=== PATIENT | female | born 1950 | race Caucasian/White ===

== ENCOUNTER → 2016-05-18 | Outpatient (CLI) | payer BC ==
[~2016-05-18] MED LIST: ACET-1138 PO; ASPCH81X PO; ATOR-24 PO; ATV/1 PO; CETI10CH PO; CHOL2000 PO; CLC100 PO; CYAN10004 PO; DICL-201 PO; DYZ PO; EFFSR150 PO; EFFSR75 PO; LEVO125T5 PO; LOSA1TAB38 PO; OMEP40CA PO; OXYSR10 PO; POTA10CA28 PO; RXC5 PO; TRAZ50TA35 PO; VITBC PO; ZOLP5TAB PO
--- NOTE | 2016-05-18 14:37 | DIAGNOSTIC IMAGING REPORT ---
CHEST 2 VIEWS ROUTINE CLINICAL HISTORY: Acute bronchitis COMPARISON STUDY: 09/03/2015 FINDINGS: The cardiac and mediastinal contours are normal. There is no evidence of focal pulmonary consolidation. There is no evidence of failure. No pleural effusions are visualized.[ There are postsurgical changes involving the left shoulder. There are degenerative changes present within the dorsal spine. IMPRESSION: No active disease in the chest. Electronically signed by: Aries Swain M.D. 05/18/2016 2:35 PM
== END | disposition home or self-care (01) ==
LOC: C.RAD1850 14:23
PROVIDERS: ATTEND Nurse Practitioner Family
DX: J20.9 Acute bronchitis, unspecified (principal)

== ENCOUNTER → 2016-07-07 | Outpatient (CLI) | payer BC ==
[~2016-07-07] MED LIST changes: +LEVO125T4 PO; -LEVO125T5 PO
[2016-07-07 11:49] LABS: BLOOD UREA NITROGEN 25 mg/dl (7-18); BUN/CREATININE RATIO 20.7 (10-20); CALCIUM 8.5 mg/dl (8.5-10.1); CARBON DIOXIDE 33 mmol/L (21-32); CHLORIDE 98 mmol/L (98-107); GLUCOSE 78 mg/dl (70-99); MAGNESIUM 2.1 mg/dl (1.8-2.4); POTASSIUM 3.5 mmol/L (3.5-5.1); SODIUM 138 mmol/L (136-145)
== END | disposition home or self-care (01) ==
LOC: C.LAB1850 10:20
PROVIDERS: ATTEND Family Medicine
DX: R25.2 Cramp and spasm (principal)

== ENCOUNTER → 2016-11-30 | Outpatient (CLI) | payer BC ==
--- NOTE | 2016-11-30 15:17 | DIAGNOSTIC IMAGING REPORT ---
LEFT HAND MIN 3 VIEWS ROUTINE CLINICAL HISTORY: R29.6 Frequent [id number] trauma COMPARISON: None. DISCUSSION: Moderate degenerative change throughout. Involve the interphalangeal joints as well as the intercarpal and carpal metacarpal joints. No evidence for fracture or dislocation. There is no evidence for soft tissue swelling. IMPRESSION: Moderate generalized degenerative change. No acute posttraumatic abnormality The above report was generated using voice recognition software. It may contain grammatical, syntax or spelling errors. Electronically signed by: Lico Damian M.D. 11/30/2016 3:15 PM Dictated Date/Time: 11/30/2016 3:14 PM
--- NOTE | 2016-11-30 15:20 | DIAGNOSTIC IMAGING REPORT ---
LEFT RIBS UNILATERAL WITH PA CHEST CLINICAL HISTORY: Left-sided rib pain. Frequent falls. COMPARISON STUDY: Chest radiograph May 18, 2016. FINDINGS: There is no pneumothorax or pleural effusion. Lungs are clear. No acute left rib fractures are identified. Cardiomediastinal silhouette is normal. Postoperative findings within the left shoulder again noted. IMPRESSION: No pneumothorax. No acute left rib fractures identified. Electronically signed by: Eros Anderson M.D. 11/30/2016 3:18 PM Dictated Date/Time: 11/30/2016 3:16 PM
== END | disposition home or self-care (01) ==
LOC: C.RAD1850 14:50
PROVIDERS: ATTEND Nurse Practitioner Adult Health
DX: R29.6 Repeated falls (principal)

== ENCOUNTER → 2016-12-09 | Outpatient (CLI) | payer BC ==
[2016-12-09 16:09] LABS: BLOOD UREA NITROGEN 21 mg/dl (7-18)
== END ==
LOC: C.LAB 13:42
PROVIDERS: ATTEND Orthopaedic Surgery
DX: M25.511 Pain in right shoulder (principal)

== ENCOUNTER → 2017-04-19 | Outpatient (CLI) | payer BC ==
[~2017-04-19] MED LIST changes: -LEVO125T4 PO; +LEVO125T5 PO
[2017-04-19 10:39] LABS: ESTIMATED AVERAGE GLUCOSE 117 mg/dl; HA1C FLAG Normal (Normal)
[2017-04-19 10:45] LABS: BLOOD UREA NITROGEN 18 mg/dl (7-18); BUN/CREATININE RATIO 15.9 (10-20); CALCIUM 8.8 mg/dl (8.5-10.1); CARBON DIOXIDE 29 mmol/L (21-32); CHLORIDE 102 mmol/L (98-107); CREATININE 1.13 mg/dl (0.60-1.20); GLUCOSE 91 mg/dl (70-99); POTASSIUM 4.2 mmol/L (3.5-5.1); SODIUM 136 mmol/L (136-145)
[2017-04-19 10:55] LABS: ALT/SGPT 17 U/L (12-78); CHOLESTEROL 171 mg/dl (0-200); CHOLESTEROL/HDL RATIO 2.3; HDL CHOLESTEROL 75 mg/dl; LDL CHOLESTEROL CALCULATED 79 mg/dl; TRIGLYCERIDES 87 mg/dl (0-150); VERY LOW DENSITY LIPOPROT CALC 17 mg/dl
== END | disposition home or self-care (01) ==
LOC: C.LAB1850 09:13
PROVIDERS: ATTEND Family Medicine
DX: I10 Essential (primary) hypertension (principal); E03.9 Hypothyroidism, unspecified; E78.5 Hyperlipidemia, unspecified

== ENCOUNTER → 2017-04-29 | Outpatient (CLI) | payer BC ==
[2017-04-29 14:41] LABS: BLOOD UREA NITROGEN 23 mg/dl (7-18); CREATININE 1.31 mg/dl (0.60-1.20)
== END | disposition home or self-care (01) ==
LOC: C.LAB1850 13:04
PROVIDERS: ATTEND Orthopaedic Surgery
DX: M75.102 Unspecified rotator cuff tear or rupture of left shoulder, not specified as traumatic (principal)

== ENCOUNTER → 2017-05-12 | Outpatient (CLI) | payer BC ==
--- NOTE | 2017-05-12 09:40 | DIAGNOSTIC IMAGING REPORT ---
LEFT SHOULDER ARTHROGRAM CLINICAL HISTORY: Left shoulder pain. Previous left shoulder surgery. Evaluate for evidence of rotator cuff tear. COMPARISON STUDY: Left shoulder radiographs September 30, 2015. FLUOROSCOPY TIME: 0.8 minutes. PROCEDURE AND FINDINGS: The procedure, risks and benefits were discussed with the patient and informed written consent was obtained. The procedure was performed by Dr. Anderson following a timeout. Skin overlying the left glenohumeral joint was prepped and draped in sterile fashion and local anesthesia was achieved with 1% lidocaine. Under intermittent fluoroscopic guidance, a 2 inch, 22-gauge needle was directed into the left glenohumeral joint. Positioning within the joint space was confirmed with injection of contrast. A left shoulder resurfacing is noted. Hardware appears intact. There is evidence for a previous distal left clavicular resection. Appearance multiple small filling defects within the joint space could reflect joint bodies. No extension of contrast into the subacromial/subdeltoid bursa was noted. 20 cc of contrast was injected into the left glenohumeral joint with excellent distention. IMPRESSION: 1. Status post left shoulder resurfacing and distal left clavicular resection. Hardware intact. 2. No fluoroscopic evidence of a full-thickness left rotator cuff tear. 3. Multiple apparent small filling defects within the joint space which could reflect small joint bodies. Electronically signed by: Eros Anderson M.D. 05/12/2017 9:39 AM Dictated Date/Time: 05/12/2017 9:36 AM
== END | disposition home or self-care (01) ==
LOC: C.RAD 08:38
PROVIDERS: ATTEND Orthopaedic Surgery
DX: M75.102 Unspecified rotator cuff tear or rupture of left shoulder, not specified as traumatic (principal)

== ENCOUNTER 2017-08-25 10:02 | Inpatient (IN) | payer BC, OTHER ==
[2017-08-02 13:21] VITALS: BMI 43.0
--- NOTE | 2017-08-02 13:54 | PAT Medication Instructions ---
Service Date Aug 02, 2017. Current Home Medication List Acetaminophen (Tylenol Extra Strength), 1,000 MG PO Q8 Aspirin (Aspirin Chewable), 81 MG PO HS Fkxjpny-Vcwfqulzaajsg-Jasjjohl (Excedrin Migraine), 2 TAB PO UD PRN for HEADACHE Atorvastatin (Lipitor), 40 MG PO HS Bupropion (Wellbutrin Sr), 150 MG PO QAM Cetirizine (Zyrtec), 10 MG PO HS Cholecalciferol (Vitamin D3), 1 CAP PO QAM Cyanocobalamin (Vitamin B-12 1000 Mcg), 1,000 MCG PO QAM Levothyroxine Sodium (Levothyroxine Sodium), 1 TAB PO QAM Losartan Potassium (Cozaar), 100 MG PO HS Magnesium Oxide (Mag-Ox), 400 MG PO QAM Omeprazole (Prilosec), 40 MG PO QAM Potassium Chloride (Micro-K Ext Rel), 20 MEQ PO BID Ranitidine (Zantac), 300 MG PO HS Trazodone Hcl (Trazodone), 200 MG PO HS Triamcinolone Acet (Triamcinolone Acetonide), 1 APPLN TOP BID PRN for RASH Triamterene/Hctz (Triamterene/Hctz 37.5-25MG), 1 TAB PO QAM Venlafaxine Hcl (Effexor Extended Rel), 150 MG PO QAM Venlafaxine Hcl (Effexor Extended Rel), 75 MG PO QAM Vitamin B Complex (Vitamin B Complex), 1 TAB PO QAM Zolpidem Tartrate (Ambien), 5 MG PO HS Medication Instructions For Your Scheduled Surgery - Check with surgeon for instructions: Oqodgjn-Zoquiesfqgcfy-Femeamxo (Excedrin Migraine), 2 TAB PO UD PRN for HEADACHE - Hold the following medications 24 hours prior to surgery: Triamcinolone Acet (Triamcinolone Acetonide), 1 APPLN TOP BID PRN for RASH Losartan Potassium (Cozaar), 100 MG PO HS - Hold the following medications the morning of surgery: Vitamin B Complex (Vitamin B Complex), 1 TAB PO QAM Triamterene/Hctz (Triamterene/Hctz 37.5-25MG), 1 TAB PO QAM Potassium Chloride (Micro-K Ext Rel), 20 MEQ PO BID Magnesium Oxide (Mag-Ox), 400 MG PO QAM Cyanocobalamin (Vitamin B-12 1000 Mcg), 1,000 MCG PO QAM Cholecalciferol (Vitamin D3), 1 CAP PO QAM - Take the following medications the morning of surgery with a sip of water: Acetaminophen (Tylenol Extra Strength), 1,000 MG PO Q8 (okay to take up to 4 hours prior to surgery if needed) Bupropion (Wellbutrin Sr), 150 MG PO QAM Levothyroxine Sodium (Levothyroxine Sodium), 1 TAB PO QAM Omeprazole (Prilosec), 40 MG PO QAM Venlafaxine Hcl (Effexor Extended Rel), 150 MG PO QAM Venlafaxine Hcl (Effexor Extended Rel), 75 MG PO QAM - Take the following medications as scheduled the night before surgery: Zolpidem Tartrate (Ambien), 5 MG PO HS Trazodone Hcl (Trazodone), 200 MG PO HS Potassium Chloride (Micro-K Ext Rel), 20 MEQ PO BID Ranitidine (Zantac), 300 MG PO HS Cetirizine (Zyrtec), 10 MG PO HS Atorvastatin (Lipitor), 40 MG PO HS Aspirin (Aspirin Chewable), 81 MG PO HS Acetaminophen (Tylenol Extra Strength), 1,000 MG PO Q8 If you have any questions please call us at [phone] or [phone] or [phone]
--- NOTE | 2017-08-02 14:45 | DIAGNOSTIC IMAGING REPORT ---
CHEST 2 VIEWS ROUTINE CLINICAL HISTORY: PAT preoperative evaluation COMPARISON STUDY: 05/18/2016 FINDINGS: The bones soft tissues and hemidiaphragms are normal. The cardiomediastinal silhouette is normal. The lungs are clear. The pulmonary vasculature is normal. Positional variation of the patient's left shoulder hemiarthroplasty compared to the prior study. IMPRESSION: No acute process of the chest. Variable position of the patient's left shoulder hemiarthroplasty compared to the prior exam. Positional variation of the humerus itself may account for this as well. The above report was generated using voice recognition software. It may contain grammatical, syntax or spelling errors. Electronically signed by: Lico Damian M.D. 08/02/2017 2:44 PM Dictated Date/Time: 08/02/2017 2:42 PM
[2017-08-02 15:32] LABS: BASO % 0.7 %; BASO ABS # 0.08 K/uL (0-0.2); EOS % 2.4 %; EOS ABS # 0.26 K/uL (0-0.5); HEMATOCRIT 40.2 % (37-47); HEMOGLOBIN 13.1 g/dL (12.0-16.0); IG# 0.04 K/uL (0.00-0.02); LYMPH % 16.9 %; LYMPH ABS # 1.82 K/uL (1.2-3.4); MEAN CELL VOLUME 93.3 fL (80-100); MEAN CORPUSCULAR HEMOGLOBIN 30.4 pg (25-34); MEAN CORPUSCULAR HGB CONC 32.6 g/dl (32-36); MEAN PLATELET VOLUME 9.5 fL (7.4-10.4); MONO % 9.6 %; MONO ABS # 1.04 K/uL (0.11-0.59); NEUT ABS # 7.56 K/uL (1.4-6.5); PLATELET COUNT 389 K/uL (130-400); RED CELL DISTRIBUTION WIDTH CV 14.1 % (11.5-14.5); RED CELL DISTRIBUTION WIDTH SD 48.5 fL (36.4-46.3)
[2017-08-02 15:39] LABS: ALBUMIN 3.2 gm/dl (3.4-5.0); CALCIUM 9.1 mg/dl (8.5-10.1); CREATININE 1.14 mg/dl (0.60-1.20); POTASSIUM 4.3 mmol/L (3.5-5.1)
[2017-08-02 15:41] LABS: INR 0.9 (0.9-1.1); PTT PATIENT 27.5 SECONDS (21.0-31.0)
[2017-08-03 06:31] LABS: HEMOGLOBIN A1C 5.6 % (4.5-5.6)
--- NOTE | 2017-08-23 20:03 | HISTORY & PHYSICAL EXAMINATION ---
DATE OF ADMISSION: 08/25/2017 CHIEF COMPLAINT: Chronic left shoulder pain. HISTORY OF PRESENT ILLNESS: This is a 67-year-old female patient of Dr. Willingham complaining of chronic left shoulder pain. The patient had a hemiarthroplasty in 2015. Since then, she has had chronic pain, increasing since 11/2016. She did have 2 falls and has become unstable in that time period. The patient wishes and agrees to proceed with a conversion of the hemiarthroplasty to a reversed total shoulder arthroplasty due to rotator cuff tendinopathy. PAST MEDICAL HISTORY: Hypertension, hypercholesterolemia, sleep apnea, anxiety, hypothyroidism, sciatica, acid reflux, obesity. SOCIAL HISTORY: Nonsmoker, nondrinker. PAST SURGICAL HISTORY: Bilateral knee surgery, multiple left shoulder surgery, hysterectomy, gallbladder and vein ligation. REVIEW OF SYSTEMS: The patient complains of chronic left shoulder pain. Otherwise, denies any shortness of breath, chest pain, nausea, vomiting, or joint complaints. FAMILY HISTORY: Noncontributory. MEDICATIONS: 1. Levothyroxine 150 mcg daily. 2. Losartan 100 mg daily. 3. Effexor 225 mg daily. 4. Hydrochlorothiazide 25 mg daily. 5. Ambien 5 mg daily. 6. Prilosec 40 mg daily. 7. Zyrtec 10 mg daily as needed. 8. Vitamin D daily. 9. Vitamin B daily. 10. Lipitor 10 mg daily. 11. Ranitidine 150 mg daily as needed. 12. Potassium chloride 10 mEq 2 capsules b.i.d. 13. Trazodone 150 mg 2 tablets daily at bed. 14. Lipitor daily. 15. Trazodone 150 mg daily. ALLERGIES: CIPRO. PHYSICAL EXAMINATION: GENERAL: Well-developed, well-nourished 67-year-old female patient of Dr. Willingham. She is alert and oriented x3 and pleasant. HEENT: Normocephalic, atraumatic. Extraocular motions are intact. Pupils are equal and reactive to light. HEART: Regular rate and rhythm, no murmurs appreciated. LUNGS: Clear. ABDOMEN: Soft and nontender. Bowel sounds are present. EXTREMITIES: Left shoulder reveals crepitation and pain with active range of motion and passive range of motion. Actively, she has 140 degrees, passively full range of motion with pain. She has 3+/5 strength. NEUROLOGIC: Neurovascularly, she is intact in her left upper extremity. DIAGNOSES: Left shoulder chronic pain with a history of a hemiarthroplasty. She also has a history of hypertension, hypercholesterolemia, sleep apnea, anxiety, hypothyroidism, sciatica, acid reflux, obesity. PLAN: The patient was advised of her diagnosis. Indications, risks, benefits, postop course have all been reviewed. The patient wished to proceed with a left shoulder conversion of the hemiarthroplasty to a reversed total shoulder arthroplasty. Necessary consent forms, preoperative testing, and clearances will be obtained.
[2017-08-25] VITALS (7 sets, daily range): BP systolic 113–174; BP diastolic 62–88; PULSE 68–82; TEMP 36.6–37.5; O2SAT 90–95; Ht 167.6 cm; Wt 120.4 kg
[~2017-08-25] VITALS: Ht 167.6 cm; Wt 120.4 kg
[~2017-08-25 10:02] MED LIST changes: +ACETAMINOPHEN 500 MG TAB PO SCH; +ASPI-390 PO; -ATV/1 PO; +BUPIVACAINE 0.25% 30 ML VIAL ONE; +BUPR-79 PO; +CEFAZOLIN 3000MG IV PUSH 22.5 ML IV SCH; -CETI10CH PO; +CETI10TA84 PO; -CLC100 PO; +CeleBREX 200 MG CAP PO SCH; +DEXAMETHASONE 4 MG TAB PO SCH; +DEXAMETHASONE SOD INJ 4 MG/ML VIAL ONE; -DICL-201 PO; -DYZ PO; +EpINEphrine INJ 1MG/ML AMP 1 MG/ML AMP ONE; +FAMOTIDINE 20 MG TAB PO SCH; +GABAPENTIN 300 MG CAP PO SCH; +LACTATED RINGER'S 1000ML 1,000 ML IV SCH; +LEVO112T4 PO; -LEVO125T5 PO; +MAGN400T6 PO; +METOCLOPRAMIDE HCL 10 MG TAB PO SCH; -OMEP40CA PO; -OXYSR10 PO; +PRLSR20 PO; +RANI300T2 PO; -RXC5 PO; +TRAZ100T29 PO; -TRAZ50TA35 PO; +TRIATAB3 PO; +TRMCR515 TOP
[2017-08-25] MEDS ORDERED: MIDAZOLAM HCL 1 MG/ML 2ML VIAL ONE (12:56)
[2017-08-25] MEDS ORDERED: FENTANYL CITRATE INJ 50 MCG/1 ML 2 ML VIAL ONE ×4 (12:57→15:20)
--- NOTE | 2017-08-25 13:03 | History & Physical Bridge Note ---
H&P Re-Evaluation Bridge Note: I have examined the patient, reviewed the History & Physical and in the interval since the performance of the History & Physical I have noted the following changes of clinical significance: No changes noted
[2017-08-25] MEDS ORDERED: PROMETHAZINE HCL INJ 6.25 MG in SODIUM CHLORIDE 0.9% 50ML 50 ML IV PRN (13:15)
[2017-08-25] MEDS ORDERED: EpHEDrine SULFATE INJ 50 MG/ML AMP IV PRN (13:15)
[2017-08-25] MEDS ORDERED: HYDROmorphone INJ 1 MG/ML SYR IV PRN (13:15)
[2017-08-25] MEDS ORDERED: FENTANYL CITRATE INJ 50 MCG/1 ML 2 ML VIAL IV PRN (13:15)
[2017-08-25] MEDS ORDERED: ONDANSETRON INJ 2 MG/ML 2 ML VIAL IV PRN ×2 (13:15→16:45)
[2017-08-25] MEDS ORDERED: ATROPINE SULFATE 0.1 MG/ML 5ML SYR IV PRN (13:15)
[2017-08-25] MEDS ORDERED: BACITRACIN 50000 UNIT VIAL ONE (13:32)
[2017-08-25] MEDS ORDERED: EpINEphrine HCL INJ 1 MG/ML 1ML SYRINGE ONE (13:32)
[2017-08-25] MEDS ORDERED: HYDROmorphone INJ 2 MG/ML SYR/VIAL ONE (15:37)
[2017-08-25] MEDS ORDERED: PROPOFOL IV EMULSION 10 MG/ML 20 ML VIAL IV ONE (16:03)
[2017-08-25] MEDS ORDERED: ONDANSETRON INJ 2 MG/ML 2 ML VIAL ONE (16:03)
[2017-08-25] MEDS ORDERED: GLYCOPYRROLATE INJ 0.2 MG/ML VIAL ONE (16:03)
[2017-08-25] MEDS ORDERED: ROCURONIUM BROMIDE 10 MG/ML 5 ML VIAL IV ONE (16:03)
[2017-08-25] MEDS ORDERED: LIDOCAINE HCL 2% 2 ML VIAL (20MG/ML) ONE (16:03)
[2017-08-25] MEDS ORDERED: NEOSTIGMINE METHYLSULFATE 5 MG/5 ML SYR ONE (16:03)
[2017-08-25] MEDS ORDERED: LABETALOL HCL IV 5 MG/ML 20ML IV ONE (16:03)
[2017-08-25] MEDS ORDERED: ESMOLOL HCL 10 MG/ML 10 ML VIAL ONE (16:41)
--- NOTE | 2017-08-25 16:42 | [facility] Post Operative Brief Note ---
Immediate Operative Summary Operative Date Aug 25, 2017. Pre-Operative Diagnosis Left shoulder chronic pain with a history of a resurfacing hemiarthroplasty Post-Operative Diagnosis same chronic biceps tenosynovitis,failed subscapularis repair anterior instability,glenoid erosion Procedure(s) Performed Left Shoulder Convert Hemiarthroplasty to Reversed Total Shoulder Arthroplasty with biceps tenodesis Surgeon Dr. Robert Whitehead Laboratory Helper Surgeon(s) [place] PA-C Estimated Blood Loss 150ml Findings Consistent with Post-Op Diagnosis Specimens Culture #1: Glenohumeral joint left for stat gram stain, culture & sensitivity and anaerobic/aerobic. Out of room to lab at 1457 by Mercedez Sweeney OR [facility]. Culture #2: Implant humeral interface left for stat gram stain, culture & sensitivity and anaerobic/aerobic. Out of room to lab at 1457 by Mercedez Sweeney OR [facility]. Frozen Section #1: Labral capsule tissue left-White cells per high power field. Out of room to lab at 1515 by Mercedez Sweeney OR [facility]. A: Explanted hardware left shoulder Drains 2 hemovac Anesthesia Type General Regional Complication(s) none Disposition Disposition: Recovery Room / PACU
[2017-08-25] MEDS ORDERED: METOCLOPRAMIDE HCL INJ 5 MG/ML 2 ML VIAL IV PRN (16:45)
[2017-08-25] MEDS ORDERED: KETOROLAC TROMETHAMINE 15 MG/ML VIAL IV. PRN (16:45)
[2017-08-25] MEDS ORDERED: SOD PHOSPHATE/SOD BIPHOSPHATE ENEMA 132 ML BTL PR PRN (16:45)
[2017-08-25] MEDS ORDERED: TRIAMCINOLONE ACET 0.5% CR 15 GM TUBE EXT PRN (16:45)
[2017-08-25] MEDS ORDERED: MAGNESIUM HYDROXIDE SUSP 30 ML UDC PO PRN (16:45)
[2017-08-25] MEDS ORDERED: ZOLPIDEM TARTRATE 5 MG TAB PO PRN (16:45)
[2017-08-25] MEDS ORDERED: NALOXONE HCL 0.4 MG/1 ML VIAL/CARP IV PRN (16:45)
[2017-08-25] MEDS ORDERED: BISACODYL 10 MG SUPP PR PRN (16:45)
--- NOTE | 2017-08-25 17:10 | DIAGNOSTIC IMAGING REPORT ---
L SHOULDER MIN 2 VIEWS ROUTINE CLINICAL HISTORY: Post shoulder surgery COMPARISON: Left shoulder radiographs September 30, 2015. FINDINGS: Alignment of the reverse total left shoulder arthroplasty is anatomic. There is no fracture or unexpected radiopaque foreign body. Skin lorenzo and drains are present. IMPRESSION: Expected findings following total left shoulder arthroplasty. Electronically signed by: Eros Anderson M.D. 08/25/2017 5:08 PM Dictated Date/Time: 08/25/2017 5:08 PM
--- NOTE | 2017-08-25 17:13 | Anesthesiology Progress Note ---
Anesthesia Post Op Note Date & Time Aug 25, 2017 at 17:13 Vital Signs Pain Intensity: 0 Vital Signs Past 12 Hours Date Time Temp Pulse Resp B/P (MAP) Pulse Ox O2 Delivery O2 Flow Rate FiO2 08/25/17 17:10 36.6 75 16 148/87 96 Nasal Cannula 2 08/25/17 17:00 78 16 149/79 96 Oxymask 10 08/25/17 16:50 89 16 153/78 96 Oxymask 10 08/25/17 16:44 36.0 90 16 156/95 95 Oxymask 10 08/25/17 10:39 36.9 82 20 174/88 94 Room Air Notes Mental Status: alert / awake / arousable, participated in evaluation Pt Amnestic to Procedure: Yes Nausea / Vomiting: adequately controlled Pain: adequately controlled Airway Patency, RR, SpO2: stable & adequate BP & HR: stable & adequate Hydration State: stable & adequate Anesthetic Complications: no major complications apparent
[2017-08-25] MEDS: D5W AND 1/2NSS + 20MEQ KCL 1,000 ML IV SCH (18:00)
[2017-08-25] MEDS ORDERED: HydrALAZINE HCL 20 MG/ML VIAL IV. PRN (18:15)
--- NOTE | 2017-08-25 18:29 | Medical Consult ---
Consultation Date of Consultation: Aug 25, 2017. Attending Physician: Robert Whitehead M.D. Reason for Consultation: Medical management History of Present Illness Patient is a 67 y/o female, with PMHx of HTN, HLD, hypothyroidism, hypokalemia, HELENA, insomnia, anxiety, and GERD, s/p L shoulder surgery on 08/[address] Whitehead. Hospitalist team was consulted for medical management. Patient resting in bed eating dinner, feeling well. Pain currently 0/10. No BM/flatus postop. Patient denies any fever, chills, sweats, lightheadedness, dizziness, vision changes, CP, palpitations, edema, SOB, wheezing, cough, abdominal pain, nausea, vomiting, diarrhea, urinary symptoms, melena, numbness/tingling, weakness, muscle/joint pain, anxiety/depression, active bleeding, or new skin discoloration/changes. Past Medical/Surgical History PAST MEDICAL HISTORY: Hypertension hypercholesterolemia sleep apnea insomnia anxiety hypothyroidism hypokalemia sciatica acid reflux obesity PAST SURGICAL HISTORY: Bilateral knee surgery multiple left shoulder surgery hysterectomy gallbladder vein ligation Social History Smoking Status: Never Smoker Marital Status: Housing Status: lives with family Allergies Coded Allergies: Ciprofloxacin (Verified Allergy, Intermediate, RASH, 08/25/17) Hydromorphone (Verified Allergy, Mild, GOOFY AND TALKING CRAZINESS, ) Home Medications Reported Home Medications Medications Dose Route/Sig Max Daily Dose Days Date Category Dose Instructions Excedrin Migraine (Biodwqr-Krzjogixbulfk-Yybcepua) 1 Tab Tab 2 Tab PO UD PRN 08/02/17 Reported Wellbutrin Sr (Bupropion HCl) 150 Mg Ertab 150 Mg PO QAM 08/02/17 Reported Zyrtec (Cetirizine HCl) 10 Mg Tab 10 Mg PO HS 08/02/17 Reported Triamterene/Hctz 37.5-25MG (Triamterene/HCTZ) 1 Tab Tab 1 Tab PO QAM 08/02/17 Reported Triamcinolone Acetonide (Triamcinolone Acet) 45 Appln/15 Gm Cr 1 Appln TOP BID PRN 30 08/02/17 Reported Trazodone (Trazodone HCl) 100 Mg Tab 200 Mg PO HS 08/02/17 Reported Zantac (Ranitidine HCl) 300 Mg Tab 300 Mg PO HS 08/02/17 Reported Prilosec (Omeprazole) 20 Mg Capcr 40 Mg PO QAM 08/02/17 Reported Mag-Ox (Magnesium Oxide) 400 Mg Tab 400 Mg PO QAM 08/02/17 Reported Levothyroxine Sodium 112 Mcg Tab 1 Tab PO QAM 90 08/02/17 Reported Vitamin D3 (Cholecalciferol) 2,000 Unit Cap 1 Cap PO QAM 09/03/15 Reported Vitamin B-12 1000 Mcg (Cyanocobalamin) 1,000 Mcg Tab 1,000 Mcg PO QAM 09/03/15 Reported Vitamin B Complex 1 Tab Tab 1 Tab PO QAM 09/03/15 Reported Micro-K Ext Rel (Potassium Chloride) 10 Meq Capcr 20 Meq PO BID 09/03/15 Reported Effexor Extended Rel (Venlafaxine Hcl) 75 Mg Capcr 75 Mg PO QAM 02/14/13 Reported TAKE WITH 150 MG TO MAKE 225 MG DOSE Lipitor (Atorvastatin Calcium) 40 Mg Tab 40 Mg PO HS 02/14/13 Reported Aspirin Chewable (Aspirin) 81 Mg Chew 81 Mg PO HS 02/09/12 Reported Effexor Extended Rel (Venlafaxine Hcl) 150 Mg Capcr 150 Mg PO QAM 02/03/12 Reported TAKE WITH 75MG TO EQUAL 225MG Ambien (Zolpidem Tartrate) 5 Mg Tab 5 Mg PO HS 02/03/12 Reported Cozaar (Losartan Potassium) 100 Mg Tab 100 Mg PO HS 01/27/12 Reported Current Inpatient Medications Current Inpatient Medications Medications (Trade) Dose Ordered Sig/Concha Route Start Time Stop Time Status Last Admin Dose Admin Lactated Ringer's 1,000 ml @ 15 mls/hr Q24H IV 08/25/17 06:00 08/26/17 05:59 08/25/17 11:09 15 MLS/HR Fentanyl Citrate (Fentanyl Inj) 50 mcg Q5M PRN IV 08/25/17 13:15 08/25/17 18:15 Hydromorphone HCl (Dilaudid Inj) 0.5 mg Q5M PRN IV 08/25/17 13:15 08/25/17 18:15 Ondansetron HCl (Zofran Inj) 4 mg ONE PRN IV 08/25/17 13:15 08/25/17 18:15 Promethazine HCl 6.25 mg/Sodium Chloride 50.25 ml @ 202 mls/hr ONE PRN IV 08/25/17 13:15 08/25/17 18:15 Ephedrine Sulfate (EpHEDrine SULFATE INJ) 5 mg Q5M PRN IV 08/25/17 13:15 08/25/17 18:15 Atropine Sulfate (Atropine Sulfate 0.1mg/ml Inj) 0.5 mg Q1M PRN IV 08/25/17 13:15 08/25/17 18:15 Aspirin (Ecotrin Tab) 81 mg HS PO 08/25/17 21:00 09/24/17 20:59 Atorvastatin Calcium (Lipitor Tab) 40 mg HS PO 08/25/17 21:00 09/24/17 20:59 Bupropion HCl (Wellbutrin-Sr Tab) 150 mg QAM PO 08/26/17 09:00 09/25/17 08:59 Cetirizine HCl (zyrTEC TAB) 10 mg HS PO 08/25/17 21:00 09/24/17 20:59 Cyanocobalamin (Vitamin B-12 Tab) 1,000 mcg QAM PO 08/26/17 09:00 09/25/17 08:59 Levothyroxine Sodium (Synthroid Tab) 112 mcg DAILYBB PO 08/26/17 06:00 09/25/17 05:59 Losartan Potassium (coZAAR TAB) 100 mg HS PO 08/25/17 21:00 09/24/17 20:59 Magnesium Oxide (Mag-Ox Tab) 400 mg QAM PO 08/26/17 09:00 09/25/17 08:59 Potassium Chloride (Klor-Con Tab) 20 meq BID PO 08/25/17 21:00 09/24/17 20:59 Trazodone HCl (Desyrel Tab) 200 mg HS PO 08/25/17 21:00 09/24/17 20:59 Triamcinolone Acetonide (Kenalog 0.5% Crm) 1 appln BID PRN EXT 08/25/17 16:45 09/24/17 16:44 Triamterene/HCTZ (Maxzide 37.5/25 Tab) 1 tab QAM PO 08/26/17 09:00 09/25/17 08:59 Venlafaxine HCl (effeXOR EXTENDED REL CAP) 75 mg QAM PO 08/26/17 09:00 09/25/17 08:59 Venlafaxine HCl (effeXOR EXTENDED REL CAP) 150 mg QAM PO 08/26/17 09:00 09/25/17 08:59 Vitamin B Complex (Vitamin B Complex) 1 tab QAM PO 08/26/17 09:00 09/25/17 08:59 Zolpidem Tartrate (Ambien Tab) 5 mg HS PO 08/25/17 21:00 09/24/17 20:59 Miscellaneous Information (Order Awaiting Action) 1 ea QS N/A 08/26/17 00:00 09/25/17 00:00 Cholecalciferol (Vitamin D Tab) 2,000 inter.unit QAM PO 08/26/17 09:00 09/25/17 08:59 Pantoprazole Sodium (Protonix Tab) 40 mg QAM PO 08/26/17 09:00 09/25/17 08:59 Ranitidine HCl (zANTac TAB) 300 mg HS PO 08/25/17 21:00 09/24/17 20:59 Ketorolac Tromethamine (Toradol Inj) 15 mg Q6 PRN IV. 08/25/17 16:45 08/26/17 16:44 Diphenhydramine HCl (Benadryl Cap) 25 mg Q8 PRN PO 08/25/17 16:45 09/24/17 16:44 Zolpidem Tartrate (Ambien Tab) 5 mg HSZ PRN PO 08/25/17 16:45 09/24/17 16:44 Metoclopramide HCl (Reglan Inj) 10 mg Q6H PRN IV 08/25/17 16:45 09/24/17 16:44 Ondansetron HCl (Zofran Inj) 4 mg Q6H PRN IV 08/25/17 16:45 09/24/17 16:44 Potassium Chloride/Dextrose/ Sod Cl 1,000 ml @ 100 mls/hr Q10H IV 08/25/17 18:00 08/26/17 16:00 Oxycodone HCl (Roxicodone Immediate Rel Tab) `1-2 TABS FOR PAIN `1 TAB... Q4H PRN PO 08/25/17 16:45 09/08/17 16:44 Acetaminophen (Tylenol Tab) 1,000 mg Q8 PO 08/25/17 22:00 09/24/17 21:59 Morphine Sulfate (MoRPHine SULFATE INJ) FOR PAIN, 2-4MG 2MG FOR P... Q2H PRN IV 08/25/17 16:45 09/08/17 16:44 Naloxone HCl (Narcan Inj) 0.1 mg Q2M PRN IV 08/25/17 16:45 09/24/17 16:44 Magnesium Hydroxide (Milk Of Magnesia Susp) 30 ml Q6H PRN PO 08/25/17 16:45 09/24/17 16:44 Bisacodyl (Dulcolax Supp) 10 mg DAILY PRN MI 08/25/17 16:45 09/24/17 16:44 Sodium Biphosphate/ Sodium Phosphate (Fleet Enema) 132 ml DAILY PRN MI 08/25/17 16:45 09/24/17 16:44 Senna (Senokot Tab) 17.2 mg HS PO 08/25/17 21:00 09/24/17 20:59 Docusate Sodium (coLACE CAP) 100 mg BID PO 08/25/17 21:00 09/24/17 20:59 Multivitamins (Multivitamin Tab) 1 tab DAILY PO 08/26/17 09:00 09/25/17 08:59 Cefazolin Sodium 2000 mg/Syringe 15 ml @ 3.75 mls/ min Q8H IV 08/25/17 22:00 08/26/17 06:03 Physical Exam Date Time Temp Pulse Resp B/P (MAP) Pulse Ox O2 Delivery O2 Flow Rate FiO2 08/25/17 17:30 94 Nasal Cannula 3.0 08/25/17 17:20 36.6 70 16 162/77 96 Nasal Cannula 2 08/25/17 17:10 36.6 75 16 148/87 96 Nasal Cannula 2 08/25/17 17:00 78 16 149/79 96 Oxymask 10 08/25/17 16:50 89 16 153/78 96 Oxymask 10 08/25/17 16:44 36.0 90 16 156/95 95 Oxymask 10 08/25/17 10:39 36.9 82 20 174/88 94 Room Air General Appearance: no apparent distress, + obese, + pertinent finding (O2 NC) Head: normocephalic, atraumatic Eyes: normal inspection, PERRL ENT: hearing grossly normal Neck: supple Respiratory/Chest: lungs clear, no respiratory distress, no accessory muscle use Cardiovascular: regular rate, rhythm Abdomen/GI: normal bowel sounds, non tender, soft Back: normal inspection Extremities/Musculoskelatal: no calf tenderness, no pedal edema Neurologic/Psych: alert, normal mood/affect, oriented x 3 Skin: normal color, warm/dry, no rash Assessment & Plan Patient is a 67 y/o female, with PMHx of HTN, HLD, hypothyroidism, hypokalemia, HELENA, insomnia, anxiety, and GERD, s/p L shoulder surgery on 08/[address] Whitehead. Hospitalist team was consulted for medical management. s/p L shoulder surgery on 08/[address] Whitehead: - Surgical management, pain management, PT/OT, and DVT prophylaxis as per primary team - Bowel regimen ordered - Encourage incentive spirometer - Follow postop CBC and PRP HTN: - Hold Maxzide and Losartan pending postop PRP and volume assesment tomorrow AM - IV Hydralazine PRN HLD: Continue Lipitor Hypokalemia: Continue KCL supplement Hypothyroidism: Continue Synthroid Anxiety: Continue Effexor and Wellbutrin HELENA: Denies treatment Insomnia: Continue Ambien GERD: Continue Zantac, Protonix while inpatient- resume Prilosec at discharge DVT prophylaxis: ASA daily as per surgical team Code status: LEVEL I, FULL Dispo: As per primary team Supervising Note Dr. Ba I performed a history and physical examination on the patient. I reviewed above note and agree with it. I discussed plan with APC and patient. During my face to face encounter with the patient, I answered all of the patient's questions. Hold lucía inhibitor, pending volume status assessment in AM.
[2017-08-25] MEDS: ACETAMINOPHEN 500 MG TAB PO SCH (21:33)
[2017-08-25] MEDS: SENNA 8.6 MG TAB PO SCH (21:33)
[2017-08-25] MEDS: ZOLPIDEM TARTRATE 5 MG TAB PO SCH (21:33)
[2017-08-25] MEDS: ATORVASTATIN 40 MG TAB PO SCH (21:33)
[2017-08-25] MEDS: DOCUSATE SODIUM 100 MG CAP PO SCH (21:33)
[2017-08-25] MEDS: ASPIRIN 81 MG ECTAB PO SCH (21:34)
[2017-08-25] MEDS: CETIRIZINE HCL 10 MG TAB PO SCH (21:34)
[2017-08-25] MEDS: TRAZODONE HCL 100 MG TAB PO SCH (21:34)
[2017-08-25] MEDS: POTASSIUM CHLORIDE 20 MEQ TABCR PO SCH (21:34)
[2017-08-25] MEDS: RANITIDINE HCL 150 MG TAB PO SCH (21:35)
[2017-08-25] MEDS: CEFAZOLIN IV 2,000 MG in SYRINGE 0 ML IV SCH (21:35)
--- NOTE | 2017-08-25 22:10 | OPERATIVE REPORT ---
DATE OF OPERATION: 08/25/2017 INDICATION FOR PROCEDURE: Patient is a 67-year-old female who had a resurfacing hemiarthroplasty from [facility] by Dr. Suarez. This was performed 2 years ago. She has had progressively increasing pain since the procedure and failed to have any relief from the procedure. Preoperative radiographs demonstrate no evidence of any loosening, satisfactory aligned Tornier resurfacing hemiarthroplasty. Workup for infection was negative. She did have some evidence of glenoid bone wear. Patient also has some suggestion on axillary view that she has some anterior subluxation, and clinically, she has weak subscapularis tendon function, and there is a concern that she could possibly have failure of her subscapularis tendon repair and instability. PREOPERATIVE DIAGNOSES: Painful resurfacing hemiarthroplasty, left shoulder, with glenoid bone wear, probable instability, and possible subscapularis tendon tear. POSTOPERATIVE DIAGNOSES: Painful left resurfacing hemiarthroplasty, subchondral bone resorption but no loosening, no signs of infection. Chronic biceps tenosynovitis. Failed subscapularis tendon repair and anterior instability. 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 PROCEDURE: Left shoulder revision of a resurfacing hemiarthroplasty to a reversed total shoulder arthroplasty including a biceps tenodesis. SURGEON: Robert Whitehead MD. CURRICULUM WRITER: Lico Hill PA-C. ANESTHESIA: Regional block and general. SPECIMENS: Frozen sections and cultures x2. DRAINS: Two Hemovacs. ESTIMATED BLOOD LOSS: 150 mL COMPLICATIONS: None. OPERATIVE PROCEDURE: Patient was taken to the operating room, anesthetized under regional block and general anesthetic. A Estrada catheter was placed. TEDs and SCDs were placed. She was morbidly obese, and the fat of her hips hung over the edges of the bed. I did translate the left side of the bed so that her shoulder could be manipulated off the bed. Shoulder was moderately obese but not morbidly obese like her lower body. She had a previous anterior slightly widened scar in the deltopectoral area, which headed more down toward the axillary fold area. I did choose to use the same incision for our approach. I did place protective eyewear in place and did examine the shoulder which demonstrated there was some anterior instability, and forward elevation was about 130 degrees, abduction to 90, and external rotation to 80. Her left shoulder was then positioned, and at about a 30 degree beachchair position, a towel over the medial border of left scapula appeared to translate to the left side of the bed so that her shoulder could be manipulated off the bed as necessary. Her left shoulder was sterilely prepped and draped with ChloraPrep in the usual sterile fashion. The incision was made through a previous scar anteriorly. The moderately deep layer fat was divided down to the fascia. Her cephalic vein was still intact. This was dissected out and retracted laterally with the deltoid. Deltopectoral scar was dissected down to the conjoined tendon. Some scarred clavipectoral fascia was released. On identifying that, there was a small sling of capsular tissue still intact along the inferior part of the component. The main area was exposed metal with the failed subscapularis tendon repair. The supraspinatus was thin and tendinopathic. There were some tendinopathic changes in the infraspinatus, both of these were still intact. Biceps tendon had chronic tenosynovitis coming out of the bicipital groove down along the biceps. To gain full exposure, I carefully dissected the interval between the capsular sling and the conjoined tendon. I then dissected out the interval in subacromial space between the rotator cuff, supraspinatus, infraspinatus, and the acromion. All the scarred bursal tissue was resected. We released around the deltoid around the posterior humerus bluntly and carefully, and the axillary nerve was palpated and identified. The pectoralis was released for a distance of 1 cm for inferior exposure, and then I opened up the biceps tendon sheath, excised all the inflamed biceps tenosynovium and then tenodesed the biceps to the pectoralis with [id number] #2 Fiberwire sutures, released biceps proximally. Care of the incision up to the biceps sheath, down to the rotator interval, down to the anterior glenoid. There was some soft tissue that was just resected anterior to the biceps tendon at the superior lesser tuberosity site. I saved the sling of a capsular tissue for repair at the end of the procedure to help with stability. At this time, I started in the bicipital groove and did a subperiosteal dissection releasing the capsular tissue of the lesser tuberosity and then released this gradually down along the neck of the humerus as we gradually externally rotate the humeral head. Carefully dissected along the neck of the humerus inferiorly, some of this was released from previous surgery, released some of it more staying on bone and slightly elevating some of the capsule using a Doe elevator. The humeral head was then exposed. I used the Tornier reversed total shoulder arthroplasty system using the Ascend Flex, long stem, and the Aqualis glenoid sphere and baseplate. First I took a culture of the joint fluid under the capsule. When we did take down the capsule, there were several #5 FiberWire sutures from the previous surgery that were all removed. There did not appear to be any visual site of infection. At this point, retractors were placed about the humeral head, and the arm was extended and externally rotated, and I used a tap technique to see if the prosthetic was loose. It was not grossly loose, but we were able to tap it off the bone tamp after several taps, and we inspected the undersurface of the implant. The bone was very soft and mushy, no pus, I did culture that. It appeared that there was just bone resorption from stress shielding as there was then a good cancellous bone underneath the implant superficially at the implant bone interface, but deeper, the bone looked really good, and there were no signs of infection. After the implant was removed, I used the cutting guide for the stem and adjusted this to make a 20 degree retroversion cut and resected some more of the bone on the base of the humerus where the implant was removed from to get down to better bone and have the appropriate depth for the implant. Then we fashioned the canal with first sizing broaches which sized to 2 and then trial humeral broaches up to 2b, long stem, and then we placed on a protective cap pegged to cut and then I went ahead and used the Fukuda retractor to retract the humerus posterior to the glenoid. Glenoid had significant erosion, it appeared that more erosion was mid to posterior. There was a small little bit of articular cartilage remaining at the most anterior aspect. The glenoid labrum was resected as well as remainder of the biceps tendon superiorly. The capsule was then released staying with the Doe elevator and electrocautery on bone first starting anteriorly, then releasing that, and placing a Bankart retractor there and then releasing inferiorly and posterior inferiorly carefully with the electrocautery and the Doe on bone. I used a curette to remove the remainder of the cartilage on the anterior rim of the glenoid, and then we were able to place retractors posteriorly, and I was able to fully visualize the glenoid. I placed the central drill hole for the 25 mm baseplate followed by the reamer. We placed this in about 10 degrees of inferior tilt to assist with the appropriate positioning of the glenoid sphere. The central drill hole was widened. There was a subchondral cyst adjacent to the post hole that we did have to curette out with an angled curette. At this time, the hydroxyapatite coated 25 mg baseplate was impacted in position with tight pressfit. Then, anterior and posterior compression screws that were 18 mm, which were 4.5 mm thick screws, and then 4.5 mm superior and inferior locking screws of 26 and 29 mm were placed. There was excellent fixation. A fan reamer was used to make the slot for the glenoid sphere. All excess bone was irrigated out. The glenoid sphere was impacted in position. This was a standard 36 mm outer diameter, 25 mm inner diameter glenoid sphere. Screw was tightened, and we checked it with a Doe to make sure it was stable. She then was taken to the humeral trialing. We tried the high offset, which had the best coverage. A +0 humeral tray and 36 +6 humeral insert, but it was too tight to reduce, so I had to take out the trial implant, cut about 2 to 3 more millimeters of metaphyseal bone for the implant to be seated deeper, rebroached back to the 2b long again with the +3.5 humeral tray and the 36+6 insert. We were able to reduce this now with stable fixation, no shuck, stable range of motion through full motion. The trial was redislocated from the glenoid sphere. The trials were removed. The canal was irrigated with antibiotic solution and bacitracin. Three drill holes were made into the bicipital groove area lateral to the lesser tuberosity. Three #5 FiberWire sutures were placed transosseously, and then, the humeral components were assembled. The final humeral components were the 2b long Ascend Flex humeral stem assembled to the +0 high offset humeral tray assembled to the 36+6 humeral insert. This construct was impacted into the humerus with stable fixation, and then this was reduced to the glenoid. The capsule was then repaired to the lesser tuberosity with the #5 FiberWire sutures in Addison-Osmin suture technique. We did some lateral row soft tissue fixation with [id number]-[id number] #2 FiberWire sutures. Some of the supraspinatus that we released for exposure was then sutured to the infraspinatus with nqqpif-qo-ipvie #2 FiberWire sutures. Repair was stable to 100 degrees of forward elevation, 90 degrees of abduction, 60 degrees of external rotation without any tension on the repair. The humerus was stable, and there was no shuck. After copious irrigation, the pectoralis tendon was repaired with [id number]-lv-[id number] #2 FiberWire reinforcing the biceps tenodesis with sutures being placed back to the biceps as well. Two Hemovac drains were placed, and then, the deltopectoral interval was closed with [id number]-if-opmue #1 Vicryl sutures, then the subcutaneous tissues were closed with 2-0 Vicryl, and the skin was closed with lorenzo. Sterile dressings were applied and sling immobilizer. MAC Haque was my editorial assistant who scrubbed and present throughout the entire procedure. He assisted in patient positioning, prepping, draping, arm positioning, instrument management, soft tissue retraction, arm positioning, assisted in the subcutaneous and skin closure, and will participate in postoperative care of the patient. I attest to the content of the Intraoperative Record and any orders documented therein. Any exception s are noted below.
[2017-08-25] MEDS: [UNRECOGNIZED DRUG - OTHER] SCH (23:51)
[2017-08-26] VITALS (7 sets, daily range): BP systolic 120–146; BP diastolic 69–86; PULSE 76–105; TEMP 36.6–37.5; O2SAT 88–93
[2017-08-26] MEDS: D5W AND 1/2NSS + 20MEQ KCL 1,000 ML IV SCH ×2 (03:26→13:04)
[2017-08-26] MEDS: ACETAMINOPHEN 500 MG TAB PO SCH ×3 (05:35→22:00)
[2017-08-26] MEDS: CEFAZOLIN IV 2,000 MG in SYRINGE 0 ML IV SCH (05:35)
[2017-08-26] MEDS: LEVOTHYROXINE 112 MCG TAB PO SCH (05:35)
[2017-08-26] MEDS: OXYCODONE HCL IR 5 MG TAB (IMMEDIATE RELEASE) PO PRN ×4 (05:36→22:29)
[2017-08-26 06:16] LABS: HEMATOCRIT 31.4 % (37-47); HEMOGLOBIN 10.3 g/dL (12.0-16.0); MEAN CELL VOLUME 92.4 fL (80-100); MEAN CORPUSCULAR HEMOGLOBIN 30.3 pg (25-34); MEAN CORPUSCULAR HGB CONC 32.8 g/dl (32-36); MEAN PLATELET VOLUME 9.2 fL (7.4-10.4); PLATELET COUNT 291 K/uL (130-400); RED CELL DISTRIBUTION WIDTH CV 13.5 % (11.5-14.5); RED CELL DISTRIBUTION WIDTH SD 45.3 fL (36.4-46.3); WHITE BLOOD COUNT 14.52 K/uL (4.8-10.8)
[2017-08-26 06:48] LABS: CALCIUM 8.3 mg/dl (8.5-10.1); CREATININE 1.13 mg/dl (0.60-1.20); POTASSIUM 4.2 mmol/L (3.5-5.1)
[2017-08-26] MEDS: [UNRECOGNIZED DRUG - OTHER] SCH ×2 (08:00→15:37)
--- NOTE | 2017-08-26 08:14 | Orthopedic Progress Note ---
Orthopedic Progress Note Date of Service Aug 26, 2017. Subjective Post OP Day: 1 Reports: feeling well, Denies: chest pain, SOB, nausea / vomiting, light headedness, calf pain Objective calves soft nontender, N/V intact, capillary refill less than 2 sec., dressing C /D/I, A&O x3, toes mobile, hemovac drainage (100/50cc per shift) Date Time Temp Pulse Resp B/P (MAP) Pulse Ox O2 Delivery O2 Flow Rate FiO2 08/26/17 07:45 Room Air 08/26/17 07:07 36.8 76 16 125/69 (87) 90 Room Air 08/26/17 05:48 93 Room Air 08/26/17 03:29 36.6 78 17 120/74 (89) 93 Nasal Cannula 2.0 08/25/17 23:25 Nasal Cannula 2.0 08/25/17 23:07 36.6 80 16 122/67 (85) 93 Nasal Cannula 2.0 08/25/17 20:30 37.5 74 18 137/78 (97) 90 Nasal Cannula 2.0 08/25/17 19:32 37.2 73 18 125/72 (89) 95 Nasal Cannula 2.0 08/25/17 18:30 37.3 68 18 137/85 (102) 95 Nasal Cannula 3.0 08/25/17 18:00 36.9 68 16 113/62 (79) 93 Nasal Cannula 3.0 08/25/17 17:30 94 Nasal Cannula 3.0 08/25/17 17:30 Nasal Cannula 2.0 08/25/17 17:30 36.8 72 16 126/74 (91) 94 Nasal Cannula 2.0 08/25/17 17:20 36.6 70 16 162/77 96 Nasal Cannula 2 08/25/17 17:10 36.6 75 16 148/87 96 Nasal Cannula 2 08/25/17 17:00 78 16 149/79 96 Oxymask 10 08/25/17 16:50 89 16 153/78 96 Oxymask 10 08/25/17 16:44 36.0 90 16 156/95 95 Oxymask 10 08/25/17 10:39 36.9 82 20 174/88 94 Room Air Laboratory Results 24 Hours: Test 08/26/17 05:25 Hematocrit 31.4 % Hemoglobin 10.3 g/dL Assessment & Plan Assessment: POD#1 sp Left Reverse TSA with biceps tenodesis Plan: PT/OT DVT PROPH- ASA DAILY PAIN MANAGEMENT DC PLANNING- NO PT. LIKELY DC HOME IN AM IF PAIN CONTROLLED DC DRESSING/DRAIN IN AM.
--- NOTE | 2017-08-26 08:19 | Discharge Instructions ---
Discharge Instructions Date of Service Aug 26, 2017. Admission Reason for Admission: Left Shoulder Unstable Hemiarthroplasty Discharge Discharge Diagnosis / Problem: SP LEFT REVERSE TSA Discharge Goals Goal(s): Decrease discomfort, Improve function, Increase independence Activity Recommendations Activity Limitations: per Instructions/Follow-up section . Instructions / Follow-Up Instructions / Follow-Up ACTIVITY RECOMMENDATIONS: SELF CARE INSTRUCTIONS AFTER TOTAL SHOULDER ARTHROPLASTY REVERSE A. You may do daily exercises as taught in physical therapy while in hospital. No lifting with the operative arm. B. You are to wear your sling/immobilizer at all times EXCEPT when performing your daily exercises and for hygiene purposes. C. You may perform dry, daily dressing changes. Please keep your incision covered. You may shower 48 hours after surgery. Do not apply soap or any ointment/ lotions directly over incision. Do not soak incision in bath tub/swimming pool. D. You may use ice as needed to operative shoulder. SPECIAL CARE INSTRUCTIONS: VERY IMPORTANT TO READ AND REVIEW A. There are a few signs you need to watch for after you are home. Call [facility] at [phone] if you experience any of the followin. Increased severe shoulder pain. Some pain is expected especially when you exercise. 2. Increased swelling in you shoulder or arm; pain or swelling in either upper extremity. 3. Any fluid drainage from the incision. 4. Shortness of breath or chest pain. B. Please call [facility] at [phone] if you have any questions or concerns about your operation or recovery. C. Call your physician if: 1. Temperature is greater than 101 degrees (F). 2. Pain is not relieved by prescribed pain medications. 3. Increase drainage or redness from incision. 4. Unanswered questions or concerns. FOLLOW UP VISIT: Please call [facility] at [phone] to schedule a follow up appointment with Dr. Whitehead or his PA in 12-14 days from your surgery date. Current Hospital Diet Patient's current hospital diet: AHA Diet (Heart Healthy) Discharge Diet Recommended Diet: Regular Diet Procedures Procedures Performed: Left Shoulder Convert Hemiarthroplasty to Reversed Total Shoulder Arthroplasty with biceps tenodesis Pending Studies Studies pending at discharge: no Laboratory Results Hemoglobin A1c Test 08/02/17 14:02 Range/Units Estimated Average Glucose 114 mg/dl Hemoglobin A1c 5.6 4.5-5.6 % Medical Emergencies . Who to Call and When: Medical Emergencies: If at any time you feel your situation is an emergency, please call 911 immediately. . Non-Emergent Contact Non-Emergency issues call your: Surgeon . "Provider Documentation" section prepared by Kaela Hanks. .
--- NOTE | 2017-08-26 08:26 | Anesthesiology Progress Note ---
Anesthesia Post Op Note Date & Time Aug 26, 2017 at 08:26 Vital Signs Pain Intensity: 0.0 Vital Signs Past 12 Hours Date Time Temp Pulse Resp B/P (MAP) Pulse Ox O2 Delivery O2 Flow Rate FiO2 08/26/17 07:45 Room Air 08/26/17 07:07 36.8 76 16 125/69 (87) 90 Room Air 08/26/17 05:48 93 Room Air 08/26/17 03:29 36.6 78 17 120/74 (89) 93 Nasal Cannula 2.0 08/25/17 23:25 Nasal Cannula 2.0 08/25/17 23:07 36.6 80 16 122/67 (85) 93 Nasal Cannula 2.0 08/25/17 20:30 37.5 74 18 137/78 (97) 90 Nasal Cannula 2.0 Notes Mental Status: alert / awake / arousable, participated in evaluation Pt Amnestic to Procedure: Yes Nausea / Vomiting: adequately controlled Pain: adequately controlled Airway Patency, RR, SpO2: stable & adequate BP & HR: stable & adequate Hydration State: stable & adequate Anesthetic Complications: no major complications apparent
[2017-08-26] MEDS: DOCUSATE SODIUM 100 MG CAP PO SCH ×2 (08:33→22:17)
[2017-08-26] MEDS: BuPROPion SR 150 MG TABCR PO SCH (08:33)
[2017-08-26] MEDS: VENLAFAXINE HCL XR 75 MG CAPXR PO SCH (08:34)
[2017-08-26] MEDS: PANTOprazole SOD 40 MG TAB PO SCH (08:34)
[2017-08-26] MEDS: CHOLECALCIFEROL 1000 INTER.UNIT TAB PO SCH (08:34)
[2017-08-26] MEDS: MAGNESIUM OXIDE 400 MG TAB PO SCH (08:34)
[2017-08-26] MEDS: VENLAFAXINE HCL XR 150 MG CAPXR PO SCH (08:34)
[2017-08-26] MEDS: CYANOCOBALAMIN 500 MCG TAB (VIT B-12) PO SCH (08:35)
[2017-08-26] MEDS: POTASSIUM CHLORIDE 20 MEQ TABCR PO SCH ×2 (08:35→22:20)
[2017-08-26] MEDS: VITAMIN B COMPLEX TAB PO SCH (08:35)
[2017-08-26] MEDS: MULTIVITAMIN TAB PO SCH (08:35)
[2017-08-26] MEDS ORDERED: PANTOprazole SOD 40 MG TAB PO SCH (09:00)
--- NOTE | 2017-08-26 12:28 | Hospitalist Progress Note ---
Hospitalist Progress Note Date of Service Aug 26, 2017. (Tia Rothman PA-C) Subjective Pt evaluation today including: conversation w/ patient, physical exam, chart review, lab review, review of studies Pain: Minimal L shoulder pain PO Intake: good Voiding: no voiding problems, no incontinence The patient was seen and examined this morning. Pt reports doing well, she has been working with PT/OT without much difficulty. L shoulder is only minimally painful. She does have some numbness into her thumb which is the same as yesterday. Denies paresthesias. She typically uses a cane to ambulate and plans to continue this upon discharge. No acute rehab x 6 wks per Ortho. Her lives with her at home in their 2 story house. She reports being able to walk up the stairs ok, and "does one step at a time sometimes". She has not had a BM since being here, but is passing gas. No other acute complaints. Constitutional: No fever, No chills, No sweats, No fatigue ENT: No nasal symptoms, No sore throat Respiratory: No cough, No shortness of breath Cardiovascular: No chest pain, No palpitations Abdomen: No pain, No nausea, No vomiting, No diarrhea Musculoskeletal: + see HPI, No swelling Neurologic: No weakness (Tia Rothman, JOSELINE) Objective Vital Signs Date Time Temp Pulse Resp B/P (MAP) Pulse Ox O2 Delivery O2 Flow Rate FiO2 08/26/17 07:45 Room Air 08/26/17 07:07 36.8 76 16 125/69 (87) 90 Room Air 08/26/17 05:48 93 Room Air 08/26/17 03:29 36.6 78 17 120/74 (89) 93 Nasal Cannula 2.0 08/25/17 23:25 Nasal Cannula 2.0 08/25/17 23:07 36.6 80 16 122/67 (85) 93 Nasal Cannula 2.0 08/25/17 20:30 37.5 74 18 137/78 (97) 90 Nasal Cannula 2.0 08/25/17 19:32 37.2 73 18 125/72 (89) 95 Nasal Cannula 2.0 08/25/17 18:30 37.3 68 18 137/85 (102) 95 Nasal Cannula 3.0 08/25/17 18:00 36.9 68 16 113/62 (79) 93 Nasal Cannula 3.0 08/25/17 17:30 94 Nasal Cannula 3.0 08/25/17 17:30 Nasal Cannula 2.0 08/25/17 17:30 36.8 72 16 126/74 (91) 94 Nasal Cannula 2.0 08/25/17 17:20 36.6 70 16 162/77 96 Nasal Cannula 2 08/25/17 17:10 36.6 75 16 148/87 96 Nasal Cannula 2 08/25/17 17:00 78 16 149/79 96 Oxymask 10 08/25/17 16:50 89 16 153/78 96 Oxymask 10 08/25/17 16:44 36.0 90 16 156/95 95 Oxymask 10 (Tia Rothman PA-C) Physical Exam General Appearance: WD/WN, no apparent distress, + obese Eyes: PERRL, EOMI ENT: hearing grossly normal, pharynx normal Neck: supple, no JVD Respiratory/Chest: lungs clear, no respiratory distress, no accessory muscle use Cardiovascular: regular rate, rhythm, + systolic murmur (faint grade II/) Abdomen: normal bowel sounds, non tender, soft Extremities: normal inspection, no pedal edema, no calf tenderness, + pertinent finding (L shoulder in sling, icepack in place, dressing appears c/d/i ) Neurologic/Psychiatric: alert, normal mood/affect, oriented x 3 Skin: normal color, warm/dry (Tia Rothman PA-C) Laboratory Results Last 24 Hours Test 08/26/17 05:25 White Blood Count 14.52 K/uL Red Blood Count 3.40 M/uL Hemoglobin 10.3 g/dL Hematocrit 31.4 % Mean Corpuscular Volume 92.4 fL Mean Corpuscular Hemoglobin 30.3 pg Mean Corpuscular Hemoglobin Concent 32.8 g/dl RDW Standard Deviation 45.3 fL RDW Coefficient of Variation 13.5 % Platelet Count 291 K/uL Mean Platelet Volume 9.2 fL Sodium Level 134 mmol/L Potassium Level 4.2 mmol/L Chloride Level 103 mmol/L Carbon Dioxide Level 27 mmol/L Anion Gap 4.0 mmol/L Blood Urea Nitrogen 19 mg/dl Creatinine 1.13 mg/dl Est Creatinine Clear Calc Drug Dose 62.1 ml/min Estimated GFR () 57.4 Estimated GFR (Non- 49.6 BUN/Creatinine Ratio 16.5 Random Glucose 151 mg/dl Calcium Level 8.3 mg/dl (Tia Rothman PA-C) Assessment and Plan Patient is a 67 y/o female, with PMHx of HTN, HLD, hypothyroidism, hypokalemia, HELENA, insomnia, anxiety, and GERD, s/p L shoulder surgery on 08/[address] Whitehead. Hospitalist team was consulted for medical management. s/p L shoulder surgery on 08/[address] Whitehead: - Surgical management, pain management, PT/OT, and DVT prophylaxis as per primary team - Bowel regimen ordered - pt uses stool softener on regular basis at home - Encourage incentive spirometer - Follow postop CBC and PRP HTN: - Resume Maxzide and Losartan today - IV Hydralazine PRN HLD: Continue Lipitor Hypokalemia: Continue KCL supplement Hypothyroidism: Continue Synthroid Anxiety: Continue Effexor and Wellbutrin HELENA: Denies treatment Insomnia: Continue Ambien GERD: Continue Zantac, Protonix while inpatient- resume Prilosec at discharge DVT prophylaxis: ASA daily as per surgical team Code status: LEVEL I, FULL Dispo: As per primary team, likely within 24 hours. From home. At this time we will sign off on the patient, thank you for involving us in her. (Tia Rothman PA-C) I personally interviewed and examined the patient. I agree with history of present illness and physical exam mentioned above, I also performed my own history taking and examination. Past medical history and review of system has been obtained by myself I reviewed all pertinent labs and studies Reviewed current medications I discussed and formulated of the assessment and plan mentioned above. Please refer to the Summary mentioned below. 67-year-old female with past medical history of dyslipidemia, hypertension, hypothyroidism, obstructive sleep apnea and GERD. Patient has severe osteoarthritis and failed outpatient management. Presented to the hospital for an elective left shoulder arthroplasty done by Dr. Whitehead Hospitalist team was consulted for medical management. Procedure went uneventful Recent vitals are stable Shunt was continued on her home medications Currently will sign off please call us if needed General Appearance: not in acute distress Eyes: normal Sclerae, extraocular muscle intact ENT: hearing grossly normal Neck: supple Respiratory/Chest: normal air entry bilateral ,no respiratory distress, no accessory muscle use Cardiovascular: regular rate, rhythm, no murmur Abdomen: non tender, soft, no masses Extremities: no edema musculoskeletal: no significant swelling or inflammation in any joint, left shoulder is wrapped Neurologic/Psychiatric: Awake alert oriented times place and person moves all extremities sensation intact cranial nerves II-12 appear to be intact Skin: normal color, warm/dry, no rash Sukumar Hill MD, [facility] [address] [facility] hospitalist group (Sukumar Araujo MD)
[2017-08-26] MEDS ORDERED: ONDA-170 PO (16:42)
[2017-08-26] MEDS ORDERED: ACET-24 PO (16:42)
[2017-08-26] MEDS ORDERED: CLC100 PO (16:42)
[2017-08-26] MEDS ORDERED: RXC5 PO (16:42)
[2017-08-26] MEDS: MoRPHine SULFATE 2 MG/ML CARP IV PRN ×3 (20:20→23:50)
[2017-08-26] MEDS: ZOLPIDEM TARTRATE 5 MG TAB PO SCH (22:17)
[2017-08-26] MEDS: ATORVASTATIN 40 MG TAB PO SCH (22:17)
[2017-08-26] MEDS: RANITIDINE HCL 150 MG TAB PO SCH (22:18)
[2017-08-26] MEDS: ASPIRIN 81 MG ECTAB PO SCH (22:19)
[2017-08-26] MEDS: SENNA 8.6 MG TAB PO SCH (22:19)
[2017-08-26] MEDS: LOSARTAN POTASSIUM 50 MG TAB PO SCH (22:19)
[2017-08-26] MEDS: CETIRIZINE HCL 10 MG TAB PO SCH (22:21)
[2017-08-26] MEDS: TRAZODONE HCL 100 MG TAB PO SCH (22:21)
[2017-08-27] VITALS (12 sets, daily range): BP systolic 111–149; BP diastolic 65–79; PULSE 86–107; TEMP 36.8–37.1; O2SAT 85–97
[2017-08-27] MEDS: OXYCODONE HCL IR 5 MG TAB (IMMEDIATE RELEASE) PO PRN ×4 (02:19→16:40)
[2017-08-27 06:04] LABS: HEMATOCRIT 32.4 % (37-47); HEMOGLOBIN 10.2 g/dL (12.0-16.0); MEAN CELL VOLUME 93.1 fL (80-100); MEAN CORPUSCULAR HEMOGLOBIN 29.3 pg (25-34); MEAN CORPUSCULAR HGB CONC 31.5 g/dl (32-36); MEAN PLATELET VOLUME 9.6 fL (7.4-10.4); PLATELET COUNT 300 K/uL (130-400); RED CELL DISTRIBUTION WIDTH CV 13.5 % (11.5-14.5); RED CELL DISTRIBUTION WIDTH SD 45.8 fL (36.4-46.3); WHITE BLOOD COUNT 10.98 K/uL (4.8-10.8)
[2017-08-27] MEDS: LEVOTHYROXINE 112 MCG TAB PO SCH (06:11)
[2017-08-27] MEDS: ACETAMINOPHEN 500 MG TAB PO SCH ×2 (06:11→14:00)
--- NOTE | 2017-08-27 06:19 | Orthopedic Progress Note ---
Orthopedic Progress Note Date of Service Aug 27, 2017. Subjective Post OP Day: 2 Denies: chest pain, SOB, nausea / vomiting, light headedness, calf pain Additional Notes: increased pain last evening, somewhat improved this am with IV morphine Objective N/V intact, capillary refill less than 2 sec., dressing C/D/I, A&O x3 Date Time Temp Pulse Resp B/P (MAP) Pulse Ox O2 Delivery O2 Flow Rate FiO2 08/27/17 06:12 104 92 Room Air 08/27/17 04:37 107 93 Nasal Cannula 2.0 08/27/17 00:02 103 149/77 (101) 96 Nasal Cannula 2.0 08/26/17 23:55 Nasal Cannula 2.0 08/26/17 23:23 92 Nasal Cannula 1.0 08/26/17 23:20 37.5 105 18 146/77 (100) 88 Room Air 08/26/17 15:33 Room Air 2.0 08/26/17 15:24 36.9 81 18 127/72 (90) 92 Room Air 08/26/17 09:54 93 92 08/26/17 07:45 Room Air 08/26/17 07:07 36.8 76 16 125/69 (87) 90 Room Air Laboratory Results 24 Hours: Test 08/27/17 05:18 Hematocrit 32.4 % Hemoglobin 10.2 g/dL Assessment & Plan Assessment: POD#2 sp Left Reverse TSA with biceps tenodesis Plan: PT/OT DVT PROPH- ASA DAILY PAIN MANAGEMENT DC PLANNING- possible dc later today pending pain control HR >100 this am, could be related to pain, will continue to follow, denies CP/ SOB at this time
[2017-08-27 06:40] LABS: CALCIUM 8.4 mg/dl (8.5-10.1); CREATININE 1.05 mg/dl (0.60-1.20); POTASSIUM 4.1 mmol/L (3.5-5.1)
[2017-08-27] MEDS: [UNRECOGNIZED DRUG - OTHER] SCH ×3 (06:50→14:39)
[2017-08-27] MEDS: MULTIVITAMIN TAB PO SCH (08:59)
[2017-08-27] MEDS: CYANOCOBALAMIN 500 MCG TAB (VIT B-12) PO SCH (08:59)
[2017-08-27] MEDS: VENLAFAXINE HCL XR 75 MG CAPXR PO SCH (08:59)
[2017-08-27] MEDS: POTASSIUM CHLORIDE 20 MEQ TABCR PO SCH ×2 (08:59→21:29)
[2017-08-27] MEDS: BuPROPion SR 150 MG TABCR PO SCH (08:59)
[2017-08-27] MEDS: TRIAMTERENE/HCTZ 37.5/25MG TAB PO SCH (08:59)
[2017-08-27] MEDS: DOCUSATE SODIUM 100 MG CAP PO SCH ×2 (08:59→21:29)
[2017-08-27] MEDS: CHOLECALCIFEROL 1000 INTER.UNIT TAB PO SCH (08:59)
[2017-08-27] MEDS: PANTOprazole SOD 40 MG TAB PO SCH (08:59)
[2017-08-27] MEDS: MAGNESIUM OXIDE 400 MG TAB PO SCH (08:59)
[2017-08-27] MEDS: VITAMIN B COMPLEX TAB PO SCH (08:59)
[2017-08-27] MEDS: VENLAFAXINE HCL XR 150 MG CAPXR PO SCH (08:59)
[2017-08-27] MEDS ORDERED: NURSING VERBAL MED ORDER ONE (19:15)
[2017-08-27] MEDS: OXYCODONE/ACETAMINOPHEN 5-325 TAB PO PRN (19:45)
[2017-08-27] MEDS: LOSARTAN POTASSIUM 50 MG TAB PO SCH (21:29)
[2017-08-27] MEDS: ZOLPIDEM TARTRATE 5 MG TAB PO SCH (21:29)
[2017-08-27] MEDS: CETIRIZINE HCL 10 MG TAB PO SCH (21:29)
[2017-08-27] MEDS: OXYCODONE HCL 10 MG TABCR (OXYCONTIN) PO SCH (21:29)
[2017-08-27] MEDS: ASPIRIN 81 MG ECTAB PO SCH (21:29)
[2017-08-27] MEDS: ATORVASTATIN 40 MG TAB PO SCH (21:30)
[2017-08-27] MEDS: SENNA 8.6 MG TAB PO SCH (21:30)
[2017-08-27] MEDS: RANITIDINE HCL 150 MG TAB PO SCH (21:30)
[2017-08-27] MEDS: TRAZODONE HCL 100 MG TAB PO SCH (21:30)
[2017-08-28] MEDS: LEVOTHYROXINE 112 MCG TAB PO SCH (05:45)
--- NOTE | 2017-08-28 06:12 | Orthopedic Progress Note ---
Orthopedic Progress Note Date of Service Aug 28, 2017. Subjective Post OP Day: 3 Reports: feeling well, pain controlled w PO medications, Denies: complaints, chest pain, SOB, nausea / vomiting, light headedness, calf pain Additional Notes: hallucinations stopped with d/c of morphine, pain better controlled this am Objective N/V intact, incision C/D/I, A&O x3 Date Time Temp Pulse Resp B/P (MAP) Pulse Ox O2 Delivery O2 Flow Rate FiO2 08/27/17 23:46 94 Nasal Cannula 3.0 08/27/17 23:45 Nasal Cannula 3.0 08/27/17 23:43 91 Nasal Cannula 2.0 08/27/17 23:40 37.0 106 18 111/65 (80) 85 Room Air 08/27/17 19:15 90 Room Air 08/27/17 14:53 36.8 101 20 139/79 (99) 97 Nasal Cannula 2.0 08/27/17 11:39 94 2.0 08/27/17 11:38 86 87 Room Air 08/27/17 09:50 92 Room Air 08/27/17 07:43 Room Air 08/27/17 07:22 37.1 102 16 127/74 (91) 95 2.0 08/27/17 06:12 104 92 Room Air Assessment & Plan Assessment: POD#3 sp Left Reverse TSA with biceps tenodesis decreased oxy sat on room air, staying above 90% on 2L. will cont to monitor, trial back on room air later today Plan: PT/OT DVT PROPH- ASA DAILY PAIN MANAGEMENT DC PLANNING- possible dc later today pending pain control and improvement in O2sats
[2017-08-28] MEDS ORDERED: OXYC-57 PO (06:13)
[2017-08-28] MEDS ORDERED: OXYSR10 PO (06:13)
[2017-08-28 06:59] VITALS: BP 128/75; PULSE 98; TEMP 36.9; O2SAT 96
[2017-08-28 07:32] VITALS: BP 119/75; PULSE 98; TEMP 37.1; O2SAT 90
[2017-08-28] MEDS: [UNRECOGNIZED DRUG - OTHER] SCH ×3 (08:00→15:46)
[2017-08-28] MEDS: MULTIVITAMIN TAB PO SCH (08:39)
[2017-08-28] MEDS: BuPROPion SR 150 MG TABCR PO SCH (08:39)
[2017-08-28] MEDS: MAGNESIUM OXIDE 400 MG TAB PO SCH (08:39)
[2017-08-28] MEDS: POTASSIUM CHLORIDE 20 MEQ TABCR PO SCH ×2 (08:39→21:20)
[2017-08-28] MEDS: VENLAFAXINE HCL XR 75 MG CAPXR PO SCH (08:39)
[2017-08-28] MEDS: VENLAFAXINE HCL XR 150 MG CAPXR PO SCH (08:39)
[2017-08-28] MEDS: PANTOprazole SOD 40 MG TAB PO SCH (08:39)
[2017-08-28] MEDS: CYANOCOBALAMIN 500 MCG TAB (VIT B-12) PO SCH (08:39)
[2017-08-28] MEDS: VITAMIN B COMPLEX TAB PO SCH (08:40)
[2017-08-28] MEDS: DOCUSATE SODIUM 100 MG CAP PO SCH ×2 (08:40→21:21)
[2017-08-28] MEDS: CHOLECALCIFEROL 1000 INTER.UNIT TAB PO SCH (08:40)
[2017-08-28] MEDS: TRIAMTERENE/HCTZ 37.5/25MG TAB PO SCH (08:40)
[2017-08-28] MEDS: OXYCODONE HCL 10 MG TABCR (OXYCONTIN) PO SCH (08:45)
[2017-08-28] MEDS: OXYCODONE/ACETAMINOPHEN 5-325 TAB PO PRN ×2 (08:46→17:39)
--- NOTE | 2017-08-28 10:12 | DIAGNOSTIC IMAGING REPORT ---
VENOUS DOPPLER LWR EXT BILA CLINICAL HISTORY: 67 years-old Female presenting with hypoxia, tachycardia, recent surgery.. TECHNIQUE: Real-time grayscale and color and spectral Doppler ultrasound imaging of the veins of the bilateral lower extremities was performed. Compression and augmentation were also utilized. COMPARISON: None. FINDINGS: Right: Common femoral vein: Patent. Greater saphenous vein: Patent. Deep femoral vein: Patent. Femoral vein: Patent. Popliteal vein: Patent. Calf veins: Patent. Left: Common femoral vein: Patent. Greater saphenous vein: Patent. Deep femoral vein: Patent. Femoral vein: Patent. Popliteal vein: Patent. Calf veins: Patent. Other: None. IMPRESSION: No evidence of deep venous thrombosis. Electronically signed by: Renny Welsh M.D. 08/28/2017 10:11 AM Dictated Date/Time: 08/28/2017 10:10 AM
[2017-08-28] MEDS ORDERED: NURSING VERBAL MED ORDER ONE ×2 (10:45→19:30)
--- NOTE | 2017-08-28 10:53 | DIAGNOSTIC IMAGING REPORT ---
CHEST 2 VIEWS ROUTINE CLINICAL HISTORY: 67 years-old Female presenting with hypoxia. TECHNIQUE: PA and lateral views of the chest were obtained. COMPARISON: 08/02/2017. FINDINGS: Atherosclerosis of the aortic arch. Cardiac silhouette top normal in size. Left basilar bandlike opacity new from prior. No pleural effusion or pneumothorax. Degenerative changes of the thoracic spine. Interval revision of the left shoulder arthroplasty with a reverse total shoulder arthroplasty now in place with overlying skin lorenzo. Widened left acromioclavicular joint consistent with prior injury, unchanged. Cholecystectomy clips noted. IMPRESSION: 1. Left basilar atelectasis suspected. No other evidence of acute cardiopulmonary disease. 2. Interval reverse total left shoulder arthroplasty. Electronically signed by: Renny Welsh M.D. 08/28/2017 10:52 AM Dictated Date/Time: 08/28/2017 10:50 AM
--- NOTE | 2017-08-28 12:32 | Progress Note ---
Subjective Date of Service: Aug 28, 2017. Subjective Pt evaluation today including: conversation w/ patient Medical team had previously signed off patient on Tuesday. Was called by nurse as patient has remained in hospital due to uncontrolled pain. Overnight, patient has required oxygen. Patient is not on oxygen at home. Patient however denies any SOB, chest pain, nausea, vomiting. Nurse states patient has required intermittent oxygen this AM. Patient reports she has not been using her incentive spirometry as often as she should. She uses it about 5 times every 2 hours. She states she has Obstructive sleep apnea, and is going to [facility] a sleep study as an outpatient. Review of Systems Constitutional: No fever, No chills Eyes: No worsening of vision Respiratory: + cough, No sputum, No wheezing, No shortness of breath, No dyspnea on exertion Cardiac: No chest pain Abdomen: No pain Musculoskeletal: No joint pain Neurologic: No memory loss Psychiatric: No depression symptoms Heme: No abnormal bleeding/bruising Endo: No fatigue Skin: No rash All Other Systems: Reviewed and Negative Medications Current Inpatient Medications Medications (Trade) Dose Ordered Sig/Concha Route Start Time Stop Time Status Last Admin Dose Admin Aspirin (Ecotrin Tab) 81 mg HS PO 08/25/17 21:00 09/24/17 20:59 08/27/17 21:29 81 MG Atorvastatin Calcium (Lipitor Tab) 40 mg HS PO 08/25/17 21:00 09/24/17 20:59 08/27/17 21:30 40 MG Bupropion HCl (Wellbutrin-Sr Tab) 150 mg QAM PO 08/26/17 09:00 09/25/17 08:59 08/28/17 08:39 150 MG Cetirizine HCl (zyrTEC TAB) 10 mg HS PO 08/25/17 21:00 09/24/17 20:59 08/27/17 21:29 10 MG Cyanocobalamin (Vitamin B-12 Tab) 1,000 mcg QAM PO 08/26/17 09:00 09/25/17 08:59 08/28/17 08:39 1,000 MCG Levothyroxine Sodium (Synthroid Tab) 112 mcg DAILYBB PO 08/26/17 06:00 09/25/17 05:59 08/28/17 05:45 112 MCG Losartan Potassium (coZAAR TAB) 100 mg HS PO 08/25/17 21:00 09/24/17 20:59 Future hold 08/27/17 21:29 100 MG Magnesium Oxide (Mag-Ox Tab) 400 mg QAM PO 08/26/17 09:00 09/25/17 08:59 08/28/17 08:39 400 MG Potassium Chloride (Klor-Con Tab) 20 meq BID PO 08/25/17 21:00 09/24/17 20:59 08/28/17 08:39 20 MEQ Trazodone HCl (Desyrel Tab) 200 mg HS PO 08/25/17 21:00 09/24/17 20:59 08/27/17 21:30 200 MG Triamcinolone Acetonide (Kenalog 0.5% Crm) 1 appln BID PRN EXT 08/25/17 16:45 09/24/17 16:44 Triamterene/HCTZ (Maxzide 37.5/25 Tab) 1 tab QAM PO 08/26/17 09:00 09/25/17 08:59 Future hold 08/28/17 08:40 1 TAB Venlafaxine HCl (effeXOR EXTENDED REL CAP) 75 mg QAM PO 08/26/17 09:00 09/25/17 08:59 08/28/17 08:39 75 MG Venlafaxine HCl (effeXOR EXTENDED REL CAP) 150 mg QAM PO 08/26/17 09:00 09/25/17 08:59 08/28/17 08:39 150 MG Vitamin B Complex (Vitamin B Complex) 1 tab QAM PO 08/26/17 09:00 09/25/17 08:59 08/28/17 08:40 1 TAB Zolpidem Tartrate (Ambien Tab) 5 mg HS PO 08/25/17 21:00 09/24/17 20:59 08/27/17 21:29 5 MG Miscellaneous Information (Order Awaiting Action) 1 ea QS N/A 08/26/17 00:00 09/25/17 00:00 Cholecalciferol (Vitamin D Tab) 2,000 inter.unit QAM PO 08/26/17 09:00 09/25/17 08:59 08/28/17 08:40 2,000 INTER.UNIT Pantoprazole Sodium (Protonix Tab) 40 mg QAM PO 08/26/17 09:00 09/25/17 08:59 08/28/17 08:39 40 MG Ranitidine HCl (zANTac TAB) 300 mg HS PO 08/25/17 21:00 09/24/17 20:59 08/27/17 21:30 300 MG Diphenhydramine HCl (Benadryl Cap) 25 mg Q8 PRN PO 08/25/17 16:45 09/24/17 16:44 Zolpidem Tartrate (Ambien Tab) 5 mg HSZ PRN PO 08/25/17 16:45 09/24/17 16:44 Metoclopramide HCl (Reglan Inj) 10 mg Q6H PRN IV 08/25/17 16:45 09/24/17 16:44 Ondansetron HCl (Zofran Inj) 4 mg Q6H PRN IV 08/25/17 16:45 09/24/17 16:44 Naloxone HCl (Narcan Inj) 0.1 mg Q2M PRN IV 08/25/17 16:45 09/24/17 16:44 Magnesium Hydroxide (Milk Of Magnesia Susp) 30 ml Q6H PRN PO 08/25/17 16:45 09/24/17 16:44 Bisacodyl (Dulcolax Supp) 10 mg DAILY PRN SC 08/25/17 16:45 09/24/17 16:44 Sodium Biphosphate/ Sodium Phosphate (Fleet Enema) 132 ml DAILY PRN SC 08/25/17 16:45 09/24/17 16:44 Senna (Senokot Tab) 17.2 mg HS PO 08/25/17 21:00 09/24/17 20:59 08/27/17 21:30 17.2 MG Docusate Sodium (coLACE CAP) 100 mg BID PO 08/25/17 21:00 09/24/17 20:59 08/28/17 08:40 100 MG Multivitamins (Multivitamin Tab) 1 tab DAILY PO 08/26/17 09:00 09/25/17 08:59 08/28/17 08:39 1 TAB Hydralazine HCl (HydrALAZINE INJ) 10 mg Q6H PRN IV. 08/25/17 18:15 09/24/17 18:14 Oxycodone/ Acetaminophen (Percocet 5-325mg Tab) `1-2 tabs for pain 1 tab ... Q6H PRN PO 08/27/17 19:30 09/10/17 19:29 08/28/17 08:46 2 TAB Objective Vital Signs Date Time Temp Pulse Resp B/P (MAP) Pulse Ox O2 Delivery O2 Flow Rate FiO2 08/28/17 09:14 Room Air 08/28/17 07:32 37.1 98 17 119/75 (90) 90 Room Air 08/28/17 06:59 36.9 98 16 128/75 (92) 96 Room Air 08/27/17 23:46 94 Nasal Cannula 3.0 08/27/17 23:45 Nasal Cannula 3.0 08/27/17 23:43 91 Nasal Cannula 2.0 08/27/17 23:40 37.0 106 18 111/65 (80) 85 Room Air 08/27/17 19:15 90 Room Air 08/27/17 14:53 36.8 101 20 139/79 (99) 97 Nasal Cannula 2.0 Physical Exam Comments: General Appearance: WD/WN, no apparent distress, + obese Eyes: PERRL, EOMI ENT: hearing grossly normal, pharynx normal Neck: supple, no JVD Respiratory/Chest: lungs clear, no respiratory distress, no accessory muscle use Cardiovascular: regular rate, rhythm, + systolic murmur (faint grade I\/) Abdomen: normal bowel sounds, non tender, soft Extremities: normal inspection, no pedal edema, no calf tenderness, + pertinent finding (L shoulder in sling, icepack in place, dressing appears c/d/i ) Neurologic/Psychiatric: alert, normal mood/affect, oriented x 3 Skin: normal color, warm/dry Assessment and Plan Patient is a 67 y/o female, with PMHx of HTN, HLD, hypothyroidism, hypokalemia, HELENA, insomnia, anxiety, and GERD, s/p L shoulder surgery on 08/[address] Whitehead. Hospitalist team was consulted for medical management. Atelectasis and Obsturctive sleep apnea Patient does not appear to have pulmonary emboli. Wells criteria is low. Neg. Doppler ultrasound. X-ray shows atelectasis Cause of hypoxia is likely multifactorial: lack of use of incetive spirometry, atelectasis. Patient once she takes deep breaths maintains an O2 sat above 94% on RA. Patientwill have a 2 step to assess need for home oxygen. Patient will f/u shortly with PCP to have repeat sleep study done. s/p L shoulder surgery on 08/[address] Whitehead: - Surgical management, pain management, PT/OT, and DVT prophylaxis as per primary team - Bowel regimen ordered - Encourage incentive spirometer - Follow postop CBC and PRP HTN: - resumed meds - IV Hydralazine PRN HLD: Continue Lipitor Hypokalemia: Continue KCL supplement Hypothyroidism: Continue Synthroid Anxiety: Continue Effexor and Wellbutrin HELENA: Denies treatment Insomnia: Continue Ambien GERD: Continue Zantac, Protonix while inpatient- resume Prilosec at discharge DVT prophylaxis: ASA daily as per surgical team Code status: LEVEL I, FULL Dispo: As per primary team
[2017-08-28 15:16] VITALS: BP 119/71; PULSE 97; TEMP 36.7; O2SAT 90
[2017-08-28] MEDS ORDERED: ACETAMINOPHEN 325 MG TAB PO PRN (19:30)
[2017-08-28] MEDS: ZOLPIDEM TARTRATE 5 MG TAB PO SCH (21:20)
[2017-08-28] MEDS: SENNA 8.6 MG TAB PO SCH (21:20)
[2017-08-28] MEDS: TRAZODONE HCL 100 MG TAB PO SCH (21:21)
[2017-08-28] MEDS: ATORVASTATIN 40 MG TAB PO SCH (21:21)
[2017-08-28] MEDS: CETIRIZINE HCL 10 MG TAB PO SCH (21:22)
[2017-08-28] MEDS: LOSARTAN POTASSIUM 50 MG TAB PO SCH (21:22)
[2017-08-28] MEDS: RANITIDINE HCL 150 MG TAB PO SCH (21:22)
[2017-08-28] MEDS: ASPIRIN 81 MG ECTAB PO SCH (21:23)
[2017-08-28] MEDS: HYDROCODONE/ACETAMIN 5/325MG TAB PO PRN (21:28)
[2017-08-28 23:31] VITALS: BP 110/70; PULSE 94; TEMP 36.7; O2SAT 95
[2017-08-29 06:19] VITALS: BP 118/64; PULSE 91; TEMP 36.9; O2SAT 92
[2017-08-29] MEDS: LEVOTHYROXINE 112 MCG TAB PO SCH (06:19)
[2017-08-29] MEDS: [UNRECOGNIZED DRUG - OTHER] SCH ×3 (07:27→15:41)
[2017-08-29] MEDS: VENLAFAXINE HCL XR 150 MG CAPXR PO SCH (09:07)
[2017-08-29] MEDS: BuPROPion SR 150 MG TABCR PO SCH (09:07)
[2017-08-29] MEDS: CYANOCOBALAMIN 500 MCG TAB (VIT B-12) PO SCH (09:07)
[2017-08-29] MEDS: POTASSIUM CHLORIDE 20 MEQ TABCR PO SCH (09:07)
[2017-08-29] MEDS: CHOLECALCIFEROL 1000 INTER.UNIT TAB PO SCH (09:07)
[2017-08-29] MEDS: VENLAFAXINE HCL XR 75 MG CAPXR PO SCH (09:07)
[2017-08-29] MEDS: DOCUSATE SODIUM 100 MG CAP PO SCH (09:07)
[2017-08-29] MEDS: TRIAMTERENE/HCTZ 37.5/25MG TAB PO SCH (09:08)
[2017-08-29] MEDS: MULTIVITAMIN TAB PO SCH (09:08)
[2017-08-29] MEDS: MAGNESIUM OXIDE 400 MG TAB PO SCH (09:08)
[2017-08-29] MEDS: VITAMIN B COMPLEX TAB PO SCH (09:08)
[2017-08-29] MEDS: PANTOprazole SOD 40 MG TAB PO SCH (09:08)
[2017-08-29] MEDS: HYDROCODONE/ACETAMIN 5/325MG TAB PO PRN ×2 (09:32→13:30)
--- NOTE | 2017-08-29 09:57 | Orthopedic Progress Note ---
Orthopedic Progress Note Date of Service Aug 29, 2017. Subjective Post OP Day: 4 Reports: feeling well, pain controlled w PO medications, Denies: complaints, chest pain, SOB, nausea / vomiting, light headedness, calf pain Additional Notes: Reports no hallucinations on norco and pain controlled well. O2 sats in the low 90's on RA. Objective N/V intact, capillary refill less than 2 sec., incision C/D/I, A&O x3, toes mobile Date Time Temp Pulse Resp B/P (MAP) Pulse Ox O2 Delivery O2 Flow Rate FiO2 08/29/17 07:30 Room Air 08/29/17 06:19 36.9 91 22 118/64 (82) 92 Room Air 08/28/17 23:31 36.7 94 18 110/70 (83) 95 Room Air 08/28/17 23:30 Room Air 08/28/17 19:20 Room Air 08/28/17 15:16 36.7 97 16 119/71 (87) 90 Room Air Assessment & Plan Assessment: POD#4 sp Left Reverse TSA with biceps tenodesis O2 sats staying above 90% on RA. will cont to monitor. Plan: PT/OT DVT PROPH- ASA DAILY PAIN MANAGEMENT DC PLANNING- possible dc later today pending pain control and improvement in O2sats Inhouse Planning Pain Management: Leon, PO Tylenol DVT Prophylaxis: ASA Discharge Planning Discharge Planning: home Pain Management: Leon, PO Tylenol DVT Prophylaxis: ASA
[2017-08-29] MEDS ORDERED: HYDR-5688 PO (10:00)
--- NOTE | 2017-08-29 11:21 | Hospitalist Progress Note ---
Hospitalist Progress Note Date of Service Aug 29, 2017. Subjective Pt evaluation today including: conversation w/ patient, physical exam, lab review, review of studies, review of inpatient medication list Voiding: no voiding problems Patient resting in bed. Feeling much better than the last 2 days. No more episodes of confusion. Pain 4/10 from 02/22 yesterday. Eating and drinking OK. No BM postop. +flatus. No N/V. Feels like she's going to have a BM soon. Discussed bowel regimen at discharge. Planning for discharge today as per orthopedics. Patient denies any fever, chills, sweats, lightheadedness, dizziness, vision changes, CP, palpitations, edema, SOB, wheezing, cough, abdominal pain, nausea, vomiting, diarrhea, urinary symptoms, melena, numbness/tingling, weakness, anxiety/depression, active bleeding, or new skin discoloration/changes. Medications Current Inpatient Medications Medications (Trade) Dose Ordered Sig/Concha Route Start Time Stop Time Status Last Admin Dose Admin Aspirin (Ecotrin Tab) 81 mg HS PO 08/25/17 21:00 09/24/17 20:59 08/28/17 21:23 81 MG Atorvastatin Calcium (Lipitor Tab) 40 mg HS PO 08/25/17 21:00 09/24/17 20:59 08/28/17 21:21 40 MG Bupropion HCl (Wellbutrin-Sr Tab) 150 mg QAM PO 08/26/17 09:00 09/25/17 08:59 08/29/17 09:07 150 MG Cetirizine HCl (zyrTEC TAB) 10 mg HS PO 08/25/17 21:00 09/24/17 20:59 08/28/17 21:22 10 MG Cyanocobalamin (Vitamin B-12 Tab) 1,000 mcg QAM PO 08/26/17 09:00 09/25/17 08:59 08/29/17 09:07 1,000 MCG Levothyroxine Sodium (Synthroid Tab) 112 mcg DAILYBB PO 08/26/17 06:00 09/25/17 05:59 08/29/17 06:19 112 MCG Losartan Potassium (coZAAR TAB) 100 mg HS PO 08/25/17 21:00 09/24/17 20:59 Future hold 4/15/18 21:22 100 MG Magnesium Oxide (Mag-Ox Tab) 400 mg QAM PO 08/26/17 09:00 09/25/17 08:59 08/29/17 09:08 400 MG Potassium Chloride (Klor-Con Tab) 20 meq BID PO 08/25/17 21:00 09/24/17 20:59 08/29/17 09:07 20 MEQ Trazodone HCl (Desyrel Tab) 200 mg HS PO 08/25/17 21:00 09/24/17 20:59 08/28/17 21:21 200 MG Triamcinolone Acetonide (Kenalog 0.5% Crm) 1 appln BID PRN EXT 08/25/17 16:45 09/24/17 16:44 Triamterene/HCTZ (Maxzide 37.5/25 Tab) 1 tab QAM PO 08/26/17 09:00 09/25/17 08:59 Future hold 08/29/17 09:08 1 TAB Venlafaxine HCl (effeXOR EXTENDED REL CAP) 75 mg QAM PO 08/26/17 09:00 09/25/17 08:59 08/29/17 09:07 75 MG Venlafaxine HCl (effeXOR EXTENDED REL CAP) 150 mg QAM PO 08/26/17 09:00 09/25/17 08:59 08/29/17 09:07 150 MG Vitamin B Complex (Vitamin B Complex) 1 tab QAM PO 08/26/17 09:00 09/25/17 08:59 08/29/17 09:08 1 TAB Zolpidem Tartrate (Ambien Tab) 5 mg HS PO 08/25/17 21:00 09/24/17 20:59 08/28/17 21:20 5 MG Miscellaneous Information (Order Awaiting Action) 1 ea QS N/A 08/26/17 00:00 09/25/17 00:00 Cholecalciferol (Vitamin D Tab) 2,000 inter.unit QAM PO 08/26/17 09:00 09/25/17 08:59 08/29/17 09:07 2,000 INTER.UNIT Pantoprazole Sodium (Protonix Tab) 40 mg QAM PO 08/26/17 09:00 09/25/17 08:59 08/29/17 09:08 40 MG Ranitidine HCl (zANTac TAB) 300 mg HS PO 08/25/17 21:00 09/24/17 20:59 08/28/17 21:22 300 MG Diphenhydramine HCl (Benadryl Cap) 25 mg Q8 PRN PO 08/25/17 16:45 09/24/17 16:44 Zolpidem Tartrate (Ambien Tab) 5 mg HSZ PRN PO 08/25/17 16:45 09/24/17 16:44 Metoclopramide HCl (Reglan Inj) 10 mg Q6H PRN IV 08/25/17 16:45 09/24/17 16:44 Ondansetron HCl (Zofran Inj) 4 mg Q6H PRN IV 08/25/17 16:45 09/24/17 16:44 Naloxone HCl (Narcan Inj) 0.1 mg Q2M PRN IV 08/25/17 16:45 09/24/17 16:44 Magnesium Hydroxide (Milk Of Magnesia Susp) 30 ml Q6H PRN PO 08/25/17 16:45 09/24/17 16:44 Bisacodyl (Dulcolax Supp) 10 mg DAILY PRN AR 08/25/17 16:45 09/24/17 16:44 Sodium Biphosphate/ Sodium Phosphate (Fleet Enema) 132 ml DAILY PRN AR 08/25/17 16:45 09/24/17 16:44 Senna (Senokot Tab) 17.2 mg HS PO 08/25/17 21:00 09/24/17 20:59 08/28/17 21:20 17.2 MG Docusate Sodium (coLACE CAP) 100 mg BID PO 08/25/17 21:00 09/24/17 20:59 08/29/17 09:07 100 MG Multivitamins (Multivitamin Tab) 1 tab DAILY PO 08/26/17 09:00 09/25/17 08:59 08/29/17 09:08 1 TAB Hydralazine HCl (HydrALAZINE INJ) 10 mg Q6H PRN IV. 08/25/17 18:15 09/24/17 18:14 Acetaminophen/ Hydrocodone Bitart ([employer] 5/325 Tab) `1-2 tabs for pain 1 tab ... Q4H PRN PO 08/28/17 19:30 09/11/17 19:29 08/29/17 09:32 2 TAB Acetaminophen (Tylenol Tab) 650 mg Q4H PRN PO 08/28/17 19:30 09/27/17 19:29 Objective Vital Signs Date Time Temp Pulse Resp B/P (MAP) Pulse Ox O2 Delivery O2 Flow Rate FiO2 08/29/17 07:30 Room Air 08/29/17 06:19 36.9 91 22 118/64 (82) 92 Room Air 08/28/17 23:31 36.7 94 18 110/70 (83) 95 Room Air 08/28/17 23:30 Room Air 08/28/17 19:20 Room Air 08/28/17 15:16 36.7 97 16 119/71 (87) 90 Room Air Physical Exam General Appearance: no apparent distress, + obese Eyes: normal inspection, PERRL ENT: hearing grossly normal Neck: supple Respiratory/Chest: lungs clear, no respiratory distress, no accessory muscle use Cardiovascular: regular rate, rhythm Abdomen: normal bowel sounds, non tender, soft Extremities: no pedal edema, no calf tenderness, + pertinent finding (ice pack to L shoulder ) Neurologic/Psychiatric: alert, normal mood/affect, oriented x 3 Skin: normal color, warm/dry, no rash Assessment and Plan Patient is a 67 y/o female, with PMHx of HTN, HLD, hypothyroidism, hypokalemia, HELENA, insomnia, anxiety, and GERD, s/p L shoulder surgery on 08/[address] Whitehead. Hospitalist team was consulted for medical management. s/p L shoulder surgery on 08/[address] Whitehead: - Surgical management, pain management, PT/OT, and DVT prophylaxis as per primary team - Bowel regimen ordered- discharge bowel regimen at discharge - Encourage incentive spirometer - Follow postop CBC and PRP- STABLE Hypoxia likely secondary to atelectasis, HELENA: - X-ray showed atelectasis, BLE venous Doppler negative for DVT - Encourage incentive spirometer, OOB in chair, ambulation - O2 protocol- currently on RA w/ O2 sats in 90% - Patient denies current HELENA treatment- f/u outpatient w/ PCP for repeat sleep study HTN: - Continue Maxzide and Losartan - IV Hydralazine PRN HLD: Continue Lipitor Hypokalemia: Continue KCL supplement Hypothyroidism: Continue Synthroid Anxiety: Continue Effexor and Wellbutrin Insomnia: Continue Ambien GERD: Continue Zantac, Protonix while inpatient- resume Prilosec at discharge DVT prophylaxis: ASA daily as per surgical team Code status: LEVEL I, FULL Dispo: Discharge as per primary team- planning for discharge to home today- medical team will sign-off, please call w/ any questions/concerns
[2017-08-29 12:41] VITALS: BP 118/64; PULSE 91; TEMP 36.9; O2SAT 92
== END 2017-08-29 16:35 | disposition home or self-care (01) | DRG 483 ==
LOC: C.ACU 10:02 → C.3E 16:49 → ENRESERV 17:15
PROVIDERS: ADMIT Orthopaedic Surgery Sports Medicine; ATTEND Orthopaedic Surgery Sports Medicine
PROC: 0RRK00Z Replacement of Left Shoulder Joint with Reverse Ball and Socket Synthetic Substitute, Open Approach (ICD-10-PCS; principal; 2017-08-25 12:35)
DX: M19.012 Primary osteoarthritis, left shoulder (principal); J98.11 Atelectasis; Z68.41 Body mass index [BMI] 40.0-44.9, adult; M25.312 Other instability, left shoulder; M75.22 Bicipital tendinitis, left shoulder; R09.02 Hypoxemia; I10 Essential (primary) hypertension; E78.00 Pure hypercholesterolemia, unspecified; G47.33 Obstructive sleep apnea (adult) (pediatric); F41.9 Anxiety disorder, unspecified; E03.9 Hypothyroidism, unspecified; K21.9 Gastro-esophageal reflux disease without esophagitis; E87.6 Hypokalemia; G47.00 Insomnia, unspecified; E66.01 Morbid (severe) obesity due to excess calories; Z88.5 Allergy status to narcotic agent; Z90.710 Acquired absence of both cervix and uterus; Z88.1 Allergy status to other antibiotic agents

== ENCOUNTER 2019-12-08 22:55 | Inpatient (IN) ==
--- NOTE | 2019-12-08 23:07 | Emergency Department Note ---
Impression & Plan Cecal volvulus ED Provider Note NAME: KARY PRESLEY AGE: 69 SEX: F ARRIVES VIA: Walk-In INFORMANT: Patient and her son ED PROVIDER(S): Alexsandra Hopper DO CHIEF COMPLAINT: Shortness of breath and vomiting PLAN: Disposition: Admission to the hospital by surgery Condition: Guarded MEDICAL DECISION MAKING: This is a 69-year-old female patient who presents to the emergency department with shortness of breath and vomiting. The patient has a previous history of a blood clot in her right leg. I was concerned for the possibility of a PE in the lung as she is tachypneic and short of breath. He had an elevated d-dimer. She went for CT scan of the chest as well as a CT scan of the abdomen/pelvis. CT scan of the abdomen/pelvis shows evidence of a cecal volvulus. Patient is having worsening right-sided abdominal pain. I discussed the case with general surgery and they will admit her to the hospital to go to the OR. Triage Nursing notes reviewed and agree them. Additional history obtained from the patient's son Prior medical records reviewed Vital Signs: reviewed and remarkable for mild hypertension Differential diagnosis: PE, pneumonia, diverticulitis, pyelonephritis, volvulus, small bowel obstruction, ureteral colic ER treatment provided: IV normal saline Diagnostics interpreted by me: ECG: Sinus tachycardia at [address] segment depression laterally. There was no ectopy. No obvious ST segment elevation. Cardiac Monitoring: Normal sinus rhythm at 98 Laboratory studies: Chest [id number] per my interpretation-no obvious pulmonary infiltrates or consolidations. There is no pneumothorax Imaging studies: CT scan of the chest-as per stat rad-somewhat suboptimal technique. No visualized pulmonary embolism to the proximal segmental level. No acute aortic syndrome. Basilar atelectasis. No pneumonia. No pleural effusion or pneumothorax. Reflux of gastric contacts into the thoracic esophagus. There is mild mucosal thickening in the distal thoracic esophagus which can be seen in setting of esophagitis. CT scan abdomen and pelvis with contrast Fluid-filled and distended cecum which measures up to 10 cm. There is an abrupt transition from distended cecum to completely decompressed a sending colon in the right lower quadrant. The remainder of the colon is decompressed. Fluid- filled mildly dilated small bowel loops upstream. Differential is a cecal vol vulus versus an obstructing mass. There is no pneumatosis or free air at this time. Recommend surgical consultation. Normal appendix. Small volume reactive free fluid in the pelvis. HPI: 69/F arrives for evaluation of shortness of breath with exertion over the past 24 hours and multiple episodes of vomiting. This is a 69-year-old female patient who was in her usual state of health until yesterday. The patient's son explains that she was here in the hospital earlier today visiting her who was hospitalized with a urinary tract infection. She returned home and complained of worsening shortness of breath with exertion and had multiple episodes of vomiting. The patient has been suffering from constipation, heartburn and a headache. She describes having a sore spot in the right side of her abdomen. She describes not eating any food throughout the day today but does drink a lot of Pepsi. She describes a sore spot to the right side of her abdomen near her right flank. ROS: See above HPI for pertinent positives & negatives. A total of 10 systems reviewed and were otherwise negative. PAST MEDICAL HISTORY:See Below PAST SURGICAL HISTORY:See Below FAMILY HISTORY:See Below SOCIAL HISTORY:See Below HOME MEDICATIONS:See list ALLERGIES:See list VITALS:See Below PHYSICAL EXAMINATION: HEENT: Head - normocephalic and atraumatic Pupils are equal, round, and re active to light. Extraocular eye muscles are intact, and sclera are anicteric. Nose - moist nasal mucosa without discharge. Mouth - moist buccal mucosa. Oropharynx is nonerythematous and there is no tonsillar exudate or edema noted. Neck: Supple; no JVD, nuchal rigidity, cervical lymphadenopathy. Heart: Regular rate and rhythm. There is a normal S1 and S2 with no murmurs, clicks, or gallops appreciated. Lungs: Clear to auscultation bilaterally with no wheezes, rales, or rhonchi. Abdomen: Soft, moderate right mid abdomen tenderness with palpation, slight distention , with good bowel sounds. There are no palpable pulsatile masses or hepatosplenomegaly. There is no guarding, rigidity, or rebound noted. Extremities: No evidence of cyanosis, clubbing, or edema. There are easily palpable peripheral pulses. Skin: warm and dry with good turgor and no rashes. ED COURSE: Times/Reassessments: 2305: The patient was evaluated in room C 11. A complete history and physical was performed. An order was placed for continuous cardiac monitoring. The patient was in a sinus tachycardia at 115. Laboratory studies were drawn as above. An IV lock was initiated. The patient will have a chest x-ray performed. A twelve-lead EKG was obtained. The patient was started on normal saline drip. 2345: I reevaluated the patient to make her aware that her white blood cell count was elevated and that her d-dimer was significantly elevated and that she would go for a CT scan of the chest to rule out PE and a CT scan of the abdomen. I reviewed the results of the CT scan with the patient and I discussed the case with Chris Phillips PA-C from surgery. Alexsandra Hopper DO Past Med/Surg History Medical History (Updated 12/09/19 @ 14:57 by Alexsandra Hopper DO) Ataxia (Acute) Cervical facet joint syndrome (Chronic) Cervicogenic headache (Chronic) Depression (Chronic) Hypertension (Chronic) Obesity Occipital neuralgia (Chronic) TIA (transient ischemic attack) (Inactive) Surgical History H/O breast surgery H/O colonoscopy H/O laparoscopy H/O lumpectomy (Resolved) right side neck H/O shoulder surgery H/O varicose vein ligation H/O: hysterectomy (Resolved) History of bilateral knee replacement (Resolved) History of left shoulder replacement (Resolved) History of lumpectomy of right breast (Resolved) Hx of cholecystectomy (Resolved) Hx of tonsillectomy (Resolved) Hx of total knee arthroplasty Hx of vascular surgery (Resolved) right leg S/P knee surgery Family History Father Stroke Prostate cancer Stroke syndrome Mother Kidney disease Stroke Myocardial infarction Heart disease Stroke syndrome Unknown Myocardial infarction Prostate cancer Brother Myocardial infarction Other Breast cancer Ulcerative colitis Denies family history of Esophageal cancer Ovarian cancer Crohn's disease Colorectal cancer Social History Smoking Status: Never smoker Hx Alcohol Use: No Hx Substance Use: No Preferred Language: Kazakh Communication Ability: Effective Visual Impairment: No Limitations Hearing Ability: Normal Beliefs That Will Affect Care: None marital status: Current Living Situation: Alone current occupational status: employed 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 Feels Safe at Home: Yes Safety Concerns: Feels Safe At This Time Childhood Exposure to Second-Hand Smoke: No Dental Care, Regularly: Yes Physical Activity Frequency: Does not Exercise Seatbelt Use: always Sunscreen Use: Yes Allergies Allergies Allergy/AdvReac Type Severity Reaction Status Date / Time ciprofloxacin Allergy Intermediate RASH Verified 12/08/19 23:31 hydromorphone Allergy Mild GOOFY AND Verified 12/08/19 23:31 TALKING CRAZINESS Home Meds Home Medications Medication Instructions Recorded Confirmed aspirin 81 mg tablet,delayed 81 mg PO DAILY 07/18/18 12/08/19 release cholecalciferol (vitamin D3) 50 2,000 units PO DAILY 07/18/18 12/08/19 mcg (2,000 unit) capsule docusate sodium 100 mg capsule 100 mg PO BID 07/18/18 12/08/19 magnesium oxide 400 mg PO DAILY 07/18/18 12/08/19 trazodone 100 mg tablet 150 mg PO HS tab 07/18/18 12/08/19 venlafaxine 75 mg capsule,extended 75 mg PO DAILY 07/18/18 12/08/19 release 24 hr vitamin B complex 1 tab PO DAILY 07/18/18 12/08/19 aripiprazole 2 mg tablet 1 mg PO DAILY tab 11/07/19 12/08/19 bupropion HCl 300 mg PO QAM 12/08/19 12/08/19 zolpidem 5 mg PO HS PRN 12/08/19 12/08/19 Previous Rx's Medication Instructions Recorded levothyroxine 75 mcg tablet 75 mcg PO DAILY #30 tab 06/27/19 triamterene 37.5 1 cap PO DAILY #90 cap 10/09/19 mg-hydrochlorothiazide 25 mg capsule omeprazole 40 mg capsule,delayed 40 mg PO DAILY #90 cap 10/26/19 release potassium chloride 10 mEq 20 meq PO BID #180 cap 10/26/19 capsule,extended release atorvastatin 10 mg tablet 10 mg PO DAILY #90 tab 11/01/19 losartan 100 mg tablet 100 mg PO DAILY #90 tab 11/01/19 Results & Data (ED) Vital Signs Vital Signs - 24 hr 12/08/19 22:56 12/08/19 23:17 12/08/19 23:20 Temperature 37.1 C Temperature Source Oral Pulse Rate 130 H 119 H 112 H Pulse Rate from SpO2 Sensor 116 H 114 H Respiratory Rate 20 21 18 Respiratory Effort / Characteristics Non-Labored Spontaneous Respiratory Depth Normal Respiratory Pattern Regular Blood Pressure 132/74 Blood Pressure Mean 93 Pulse Oximetry 97 95 94 Oxygen Delivery Method Room Air Sepsis Recent Fever Within 48 Hours No Sepsis New/Unexplained Change in Mental Status No Sepsis Action Taken by Nursing No Action Required 12/08/19 23:30 12/08/19 23:36 12/08/19 23:40 Temperature Temperature Source Pulse Rate 110 H 111 H 108 H Pulse Rate from SpO2 Sensor 111 H 112 H 106 H Respiratory Rate 20 25 H 21 Respiratory Effort / Characteristics Respiratory Depth Respiratory Pattern Blood Pressure 134/88 Blood Pressure Mean 100 Pulse Oximetry 95 95 95 Oxygen Delivery Method Sepsis Recent Fever Within 48 Hours Sepsis New/Unexplained Change in Mental Status Sepsis Action Taken by Nursing 12/08/19 23:50 12/09/19 00:13 12/09/19 00:49 Temperature Temperature Source Pulse Rate 98 H Pulse Rate from SpO2 Sensor 100 H 103 H Respiratory Rate 30 H 20 Respiratory Effort / Characteristics Respiratory Depth Respiratory Pattern Blood Pressure 141/115 H Blood Pressure Mean 120 Pulse Oximetry 97 97 98 Oxygen Delivery Method Room Air Sepsis Recent Fever Within 48 Hours Sepsis New/Unexplained Change in Mental Status Sepsis Action Taken by Nursing 12/09/19 00:50 12/09/19 01:00 12/09/19 01:01 Temperature Temperature Source Pulse Rate Pulse Rate from SpO2 Sensor 103 H 104 H Respiratory Rate Respiratory Effort / Characteristics Respiratory Depth Respiratory Pattern Blood Pressure 149/95 H Blood Pressure Mean 111 Pulse Oximetry 98 Oxygen Delivery Method Sepsis Recent Fever Within 48 Hours Sepsis New/Unexplained Change in Mental Status Sepsis Action Taken by Nursing 12/09/19 01:10 12/09/19 01:20 12/09/19 01:30 Temperature Temperature Source Pulse Rate 104 H 104 H 101 H Pulse Rate from SpO2 Sensor Respiratory Rate 17 22 18 Respiratory Effort / Characteristics Respiratory Depth Respiratory Pattern Blood Pressure Blood Pressure Mean Pulse Oximetry Oxygen Delivery Method Sepsis Recent Fever Within 48 Hours Sepsis New/Unexplained Change in Mental Status Sepsis Action Taken by Nursing 12/09/19 01:31 12/09/19 01:40 12/09/19 01:50 Temperature Temperature Source Pulse Rate 104 H 105 H 104 H Pulse Rate from SpO2 Sensor Respiratory Rate 18 16 20 Respiratory Effort / Characteristics Respiratory Depth Respiratory Pattern Blood Pressure 158/99 H Blood Pressure Mean 132 Pulse Oximetry Oxygen Delivery Method Sepsis Recent Fever Within 48 Hours Sepsis New/Unexplained Change in Mental Status Sepsis Action Taken by Nursing 12/09/19 02:00 12/09/19 02:01 12/09/19 02:10 Temperature Temperature Source Pulse Rate 99 H 101 H 98 H Pulse Rate from SpO2 Sensor Respiratory Rate 18 20 25 H Respiratory Effort / Characteristics Respiratory Depth Respiratory Pattern Blood Pressure 145/109 H Blood Pressure Mean 125 Pulse Oximetry Oxygen Delivery Method Sepsis Recent Fever Within 48 Hours Sepsis New/Unexplained Change in Mental Status Sepsis Action Taken by Nursing 12/09/19 02:20 12/09/19 02:30 12/09/19 02:31 Temperature Temperature Source Pulse Rate 116 H 125 H 126 H Pulse Rate from SpO2 Sensor 122 H 129 H Respiratory Rate 19 27 H 19 Respiratory Effort / Characteristics Respiratory Depth Respiratory Pattern Blood Pressure 134/94 Blood Pressure Mean 100 Pulse Oximetry 96 96 Oxygen Delivery Method Sepsis Recent Fever Within 48 Hours Sepsis New/Unexplained Change in Mental Status Sepsis Action Taken by Nursing 12/09/19 02:40 12/09/19 02:50 12/09/19 03:00 Temperature Temperature Source Pulse Rate 121 H 110 H 116 H Pulse Rate from SpO2 Sensor 122 H 120 H 118 H Respiratory Rate 24 27 H 18 Respiratory Effort / Characteristics Respiratory Depth Respiratory Pattern Blood Pressure 149/102 H Blood Pressure Mean 107 Pulse Oximetry 95 95 96 Oxygen Delivery Method Sepsis Recent Fever Within 48 Hours Sepsis New/Unexplained Change in Mental Status Sepsis Action Taken by Nursing 12/09/19 03:01 12/09/19 03:10 12/09/19 03:20 Temperature Temperature Source Pulse Rate 116 H 116 H 107 H Pulse Rate from SpO2 Sensor 119 H 116 H 108 H Respiratory Rate 20 17 21 Respiratory Effort / Characteristics Respiratory Depth Respiratory Pattern Blood Pressure Blood Pressure Mean Pulse Oximetry 94 95 94 Oxygen Delivery Method Sepsis Recent Fever Within 48 Hours Sepsis New/Unexplained Change in Mental Status Sepsis Action Taken by Nursing Laboratory Data Result diagrams: 12/09/19 07:04 12/09/19 07:04 Lab Results 12/08/19 12/08/19 12/08/19 Range/Units 23:20 23:20 23:20 WBC 23.10 H (4.8-10.8) K/uL RBC 4.98 (4.2-5.4) M/uL Hgb 15.0 (12.0-16.0) g/dL Hct 44.3 (37-47) % MCV 89.0 (80-100) fL MCH 30.1 (25-34) pg MCHC 33.9 (32-36) g/dL RDW Std Deviation 45.0 (36.4-46.3) fL RDW Coeff of Christopher 13.8 (11.5-14.5) % Plt Count 478 H (130-400) K/uL MPV 9.9 (7.4-10.4) fL Immature Gran % (Auto) 0.3 % Neut % (Auto) 88.3 % Lymph % (Auto) 2.9 % [place] % (Auto) 8.3 % Eos % (Auto) 0.0 % Baso % (Auto) 0.2 % Neut # (Auto) 20.38 H (1.4-6.5) K/uL Lymph # (Auto) 0.68 L (1.2-3.4) K/uL [place] # (Auto) 1.91 H (0.11-0.59) K/uL Eos # (Auto) 0.01 (0-0.5) K/uL Baso # (Auto) 0.04 (0-0.2) K/uL Immature Gran # (Auto) 0.08 H (0.00-0.02) K/uL PT (9.0-12.0) Seconds INR (0.9-1.1) APTT (21.0-31.0) Seconds PTT Ratio D-Dimer 3530 H* (0-500) ug/L FEU Sodium 134 L (136-145) mmol/L Potassium 3.1 L (3.5-5.1) mmol/L Chloride 101 (98-107) mmol/L Carbon Dioxide 22 (21-32) mmol/L Anion Gap 12.0 H (3-11) BUN 25 H (7-18) mg/dl Creatinine 1.59 H (0.6-1.2) mg/dl Est Cr Clr Drug Dosing Not Reportable Est GFR ( Amer) 37.5 Est GFR (Non-Af Amer) 32.3 BUN/Creatinine Ratio 15.7 (10-20) Glucose 168 H (70-99) mg/dl Lactate (0.4-2.0) mmol/L Calcium 9.2 (8.5-10.1) mg/dl Total Bilirubin 0.5 (0.2-1) mg/dl AST 14 L (15-37) U/L ALT 17 (12-78) U/L Alkaline Phosphatase 94 (45-117) U/L Troponin I < 0.015 (0-0.045) ng/ml Total Protein 8.5 H (6.4-8.2) gm/dl Albumin 3.6 (3.4-5.0) gm/dl Globulin 4.9 H (2.5-4.0) gm/dl Albumin/Globulin Ratio 0.7 L (0.9-2) Lipase 46 L (73-393) U/L Urine Color Urine Appearance (Clear) Urine pH (4.5-7.5) Ur Specific [place] (1.000-1.030) Urine Protein (Negative) Urine Glucose (UA) (Negative) Urine Ketones (Negative) Urine Blood (Negative) Urine Nitrite (Negative) Urine Bilirubin (Negative) Urine Urobilinogen (Negative) Ur Leukocyte Esterase (Negative) Urine WBC (Auto) (0-5) /hpf Urine RBC (Auto) (0-4) /hpf U Hyaline Cast (Auto) (0-5) /lpf U Epithel Cells (Auto) (0-5) /lpf Urine Bacteria (Auto) (Negative) 12/08/19 12/09/19 12/09/19 Range/Units 23:20 00:45 02:05 WBC (4.8-10.8) K/uL RBC (4.2-5.4) M/uL Hgb (12.0-16.0) g/dL Hct (37-47) % MCV (80-100) fL MCH (25-34) pg MCHC (32-36) g/dL RDW Std Deviation (36.4-46.3) fL RDW Coeff of Christopher (11.5-14.5) % Plt Count (130-400) K/uL MPV (7.4-10.4) fL Immature Gran % (Auto) % Neut % (Auto) % Lymph % (Auto) % [place] % (Auto) % Eos % (Auto) % Baso % (Auto) % Neut # (Auto) (1.4-6.5) K/uL Lymph # (Auto) (1.2-3.4) K/uL [place] # (Auto) (0.11-0.59) K/uL Eos # (Auto) (0-0.5) K/uL Baso # (Auto) (0-0.2) K/uL Immature Gran # (Auto) (0.00-0.02) K/uL PT 10.9 (9.0-12.0) Seconds INR 1.0 (0.9-1.1) APTT 30.2 (21.0-31.0) Seconds PTT Ratio 1.1 D-Dimer (0-500) ug/L FEU Sodium (136-145) mmol/L Potassium (3.5-5.1) mmol/L Chloride (98-107) mmol/L Carbon Dioxide (21-32) mmol/L Anion Gap (3-11) BUN (7-18) mg/dl Creatinine (0.6-1.2) mg/dl Est Cr Clr Drug Dosing Est GFR ( Amer) Est GFR (Non-Af Amer) BUN/Creatinine Ratio (10-20) Glucose (70-99) mg/dl Lactate 1.0 (0.4-2.0) mmol/L Calcium (8.5-10.1) mg/dl Total Bilirubin (0.2-1) mg/dl AST (15-37) U/L ALT (12-78) U/L Alkaline Phosphatase (45-117) U/L Troponin I (0-0.045) ng/ml Total Protein (6.4-8.2) gm/dl Albumin (3.4-5.0) gm/dl Globulin (2.5-4.0) gm/dl Albumin/Globulin Ratio (0.9-2) Lipase (73-393) U/L Urine Color Yellow Urine Appearance Clear (Clear) Urine pH 5.0 (4.5-7.5) Ur Specific [place] > 1.045 H (1.000-1.030) Urine Protein Trace H (Negative) Urine Glucose (UA) Negative (Negative) Urine Ketones Negative (Negative) Urine Blood Negative (Negative) Urine Nitrite Negative (Negative) Urine Bilirubin Negative (Negative) Urine Urobilinogen Negative (Negative) Ur Leukocyte Esterase Negative (Negative) Urine WBC (Auto) 1-5 (0-5) /hpf Urine RBC (Auto) 0-4 (0-4) /hpf U Hyaline Cast (Auto) 5-10 H (0-5) /lpf U Epithel Cells (Auto) 20-30 H (0-5) /lpf Urine Bacteria (Auto) Negative (Negative) Administered Medications Cefoxitin Sodium 2,000 mg/ (Dextrose) 60 mls @ 100 mls/hr IV ONCE RAJI Stop: 12/10/19 11:59 Last Infusion: 12/09/19 14:19 Dose: 0 mls/hr Documented by: [id number] Admin: 12/09/19 11:34 Dose: 100 mls/hr Documented by: [id number] Ioversol (Optiray 320 125ml) 118 ml IV ONCE PRN PRN Reason: Interaction Checking Stop: 12/12/19 23:53 Last Admin: 12/08/19 23:54 Dose: 1 ml Documented by: [id number] Discontinued Medications Sodium Chloride (Nss) 500 mls @ 999 mls/hr IV .Q31M ONE Stop: 12/08/19 23:50 Last Infusion: 12/09/19 00:42 Dose: 0 mls/hr Documented by: [id number] Admin: 12/08/19 23:37 Dose: 999 mls/hr Documented by: [id number] Potassium Chloride (K Joe / Wtr) 10 meq in 100 mls @ 100 mls/hr IV Q1H RAJI Stop: 12/09/19 04:29 Last Infusion: 12/09/19 05:51 Dose: 0 mls/hr Documented by: [id number] Infusion: 12/09/19 04:52 Dose: 100 mls/hr Documented by: [id number] Admin: 12/09/19 03:32 Dose: 100 mls/hr Documented by: [id number] Infusion: 12/09/19 03:32 Dose: 100 mls/hr Documented by: [id number] Admin: 12/09/19 02:45 Dose: 100 mls/hr Documented by: [id number] Potassium Chloride/Sodium Chloride (Normal Saline W/20 Meq Kcl) 20 meq in 1,000 mls @ 75 mls/hr IV .[id number] RAJI Stop: 01/08/20 03:59 Last Infusion: 12/09/19 10:42 Dose: 0 mls/hr Documented by: [id number] Admin: 12/09/19 05:51 Dose: 75 mls/hr Documented by: [id number] Potassium Chloride (K Joe / Wtr) 10 meq in 100 mls @ 100 mls/hr IV Q1H RAJI Stop: 12/09/19 11:59 Last Infusion: 12/09/19 09:49 Dose: 0 mls/hr Documented by: [id number] Infusion: 12/09/19 09:37 Dose: 75 mls/hr Documented by: [id number] Admin: 12/09/19 08:44 Dose: 100 mls/hr Documented by: [id number] Infusion: 12/09/19 08:44 Dose: 100 mls/hr Documented by: [id number] Admin: 12/09/19 08:43 Dose: 100 mls/hr Documented by: [id number] Famotidine 20 mg/ Syringe 5 mls @ 2.5 mls/min IV ONE ONE Stop: 12/09/19 10:01 Last Admin: 12/09/19 09:49 Dose: 2.5 mls/min Documented by: [id number] Morphine Sulfate (Morphine Sulfate) 2 mg IV Q3H PRN PRN Reason: Pain Stop: 12/23/19 05:05 Last Admin: 12/09/19 08:43 Dose: 2 mg Documented by: [id number] Admin: 12/09/19 05:28 Dose: 2 mg Documented by: [id number] Morphine Sulfate (Morphine Sulfate) Confirm Administered Dose 4 mg .ROUTE .STK- MED ONE Stop: 12/09/19 14:38 Last Admin: 12/09/19 14:38 Dose: 4 mg Documented by: [id number] Ondansetron HCl (Zofran) 4 mg IV Q6H PRN PRN Reason: Nausea Stop: 01/08/20 03:51 Last Admin: 12/09/19 08:43 Dose: 4 mg Documented by: [id number] Discharge Plan Visit Data *Final* Discharge Date/Time: 12/09/19 03:32 Chief Complaint: Illness Stated Complaint: DYSPNEA, ABD PAIN, VOMITING, INDIGESTION ED Provider: Alexsandra Hopper Discharge Problem: Cecal volvulus Patient Disposition: Admitted As Inpatient Discharge Instructions Interventions: ED Discharge Assessment Last Done: 12/09/19 03:32
[2019-12-08] MEDS ORDERED: SODIUM CHLORIDE 0.9% 500 ML IV ONE (23:20)
[2019-12-08 23:33] LABS: Hematocrit (blood only) 44.3 % (37-47); Mean Corpuscular Hemoglobin 30.1 pg (25-34); Mean Corpuscular Hgb Conc 33.9 g/dL (32-36); Mean Platelet Volume 9.9 fL (7.4-10.4); Platelet Count 478 K/uL (130-400); RDW Coefficient of Variation 13.8 % (11.5-14.5); Red Blood Count 4.98 M/uL (4.2-5.4)
[2019-12-08 23:50] LABS: Alanine Aminotransferase 17 U/L (12-78); Albumin Level 3.6 gm/dl (3.4-5.0); Aspartate Aminotransferase 14 U/L (15-37); BUN Creatinine Ratio 15.7 (10-20); Blood Urea Nitrogen 25 mg/dl (7-18); Calcium 9.2 mg/dl (8.5-10.1); Carbon Dioxide 22 mmol/L (21-32); Chloride 101 mmol/L (98-107); D Dimer 3530 ug/L FEU (0-500); Est GFR (African American) 37.5; Est GFR (Non-African American) 32.3; Glucose 168 mg/dl (70-99); Lipase 46 U/L (73-393); Potassium 3.1 mmol/L (3.5-5.1); Sodium 134 mmol/L (136-145)
[2019-12-08] MEDS ORDERED: OPTIRAY 320 125ml IV PRN (23:54)
[2019-12-08 23:55] LABS: Albumin Globulin Ratio 0.7 (0.9-2); Alkaline Phosphatase 94 U/L (45-117); Bilirubin,Total 0.5 mg/dl (0.2-1); Globulin 4.9 gm/dl (2.5-4.0); Total Protein 8.5 gm/dl (6.4-8.2); Troponin I < 0.015 ng/ml (0-0.045)
[2019-12-09 00:07] LABS: Basophils # (auto) 0.04 K/uL (0-0.2); Basophils % (auto) 0.2 %; Eosinophils # (auto) 0.01 K/uL (0-0.5); Immature Granulocytes # (auto) 0.08 K/uL (0.00-0.02); Immature Granulocytes % (auto) 0.3 %; Lymphocytes # (auto) 0.68 K/uL (1.2-3.4); Lymphocytes % (auto) 2.9 %; Monocytes # (auto) 1.91 K/uL (0.11-0.59); Monocytes % (auto) 8.3 %; Neutrophils # (auto) 20.38 K/uL (1.4-6.5); Neutrophils % (auto) 88.3 %
[2019-12-09 01:23] LABS: Appearance Urine Clear (Clear); Bacteria Urine Automated Negative (Negative); Bilirubin Urine Negative (Negative); Blood Urine Negative (Negative); Color Urine Yellow; Epithelial Cell Urine Auto 20-30 /lpf (0-5); Glucose Urine UA Negative (Negative); Ketones Urine Negative (Negative); Leukocyte Esterase Urine Negative (Negative); Nitrite Urine Negative (Negative); Protein Urine Trace (Negative); RBC Urine Automated 0-4 /hpf (0-4); Specific Gravity Urine > 1.045 (1.000-1.030); Urobilinogen Urine Negative (Negative)
[2019-12-09] MEDS ORDERED: CANNULA ONE (02:29)
[2019-12-09 02:45] LABS: Partial Thromboplastin Ratio 1.1; Partial Thromboplastin Time 30.2 Seconds (21.0-31.0); Prothrombin Time 10.9 Seconds (9.0-12.0)
[2019-12-09] MEDS: POTASSIUM CHLORIDE / WTR 10 MEQ/100 ML PLCT IV SCH ×5 (02:45→16:44)
--- NOTE | 2019-12-09 03:07 | History & Physical Report ---
Date of Service December 09, 2019 Assessment & Plan (1) Cecal volvulus: -pt. will be admitted to hospital with te following plan: -keep NPO -replace potassium -hydrate with IVF -repeat electrolytes at 0700 -check INR ad PTT -check lacate level -provide antiemetics -as noted in HPI, multiple attempts at NGT were undertaken by myself as well as RN; she had no N/V in ED until this was attempted and due to discomfort she repeated pulled tube out during insertion attempts; I expressed to her the importance of placing NGT and she refused. As she has no current N/V il hold but I informed her that if she had further emesis NGT will ana to be put in check EKG -will ask hospitalists to evaluate -discussed with my attending, Dr. Boyle and he feels pt. likely had this process going on for several days. He is planning on taking to OR for exploratory laparotomy and possible bowel resection. Risks, benefits, and alternatives were discussed with pt. and she is agreeable to proceed. She mely be admitted and she has hubert placed on the OR ad-on schedule. as above. pt seen/examined/chart and xrays reviewed/interpreted. agree likely cecal volvulous. replacing potassium and IVF now. pt not septic and pain managed. will need ex-lap with likely right colectomy. discussed risks --bleeding/infection/dvt/pe/mi/cva//injury to another organ/leaks/injury to ureter etc.... questions answered. pt agreeable. will proceed with ex- lap/surgery as needed once an OR becomes available. History of Present Illness Primary Care Provider: Yesi Coronado MD 69 year old female presented to the ED due to "not feeling well"for about 3 days. She notes her main complaint has been SOB with activity. She denies CP, palpitations, or syncope. Earlier today she had 3 episodes of N/V. She noted a BM that was somewhat liquid but essentially normal earlier today. Due to her symptoms she presented to the ED. She denies FH of colon CA and she had had a colonoscopy on the past and to the best of her knowledge there were no reported problems. In the Ed labs revealed a WBC of, an elevated D-dimer, sodium 134, potassium of 3.1. Her Bun and Cr were [address] scan of the chest did not reveal any pneumonia, pleural effusions, or PE. Ct scan of the abdomen showed concern for cecal mas or volvulus. At the time of my exam she as in no distress. An NGT was attempted multiple times by Rm as ell as myself--this caused emesis and each time the patiemnt pulled the tube out and refused to have it inserted. Upon cessation of attempted to put NGT she was more comfortable. Allergies Allergy/AdvReac Type Severity Reaction Status Date / Time ciprofloxacin Allergy Intermediate RASH Verified 12/08/19 23:31 hydromorphone Allergy Mild GOOFY AND Verified 12/08/19 23:31 TALKING CRAZINESS Home Medications Home Medications Medication Instructions Recorded Confirmed Type aspirin 81 mg tablet,delayed 81 mg PO DAILY 07/18/18 12/08/19 History release cholecalciferol (vitamin D3) 50 2,000 units PO DAILY 07/18/18 12/08/19 History mcg (2,000 unit) capsule docusate sodium 100 mg capsule 100 mg PO BID 07/18/18 12/08/19 History magnesium oxide 400 mg PO DAILY 07/18/18 12/08/19 History trazodone 100 mg tablet 150 mg PO HS tab 07/18/18 12/08/19 History venlafaxine 75 mg capsule,extended 75 mg PO DAILY 07/18/18 12/08/19 History release 24 hr vitamin B complex 1 tab PO DAILY 07/18/18 12/08/19 History levothyroxine 75 mcg tablet 75 mcg PO DAILY #30 tab 06/27/19 12/08/19 Rx triamterene 37.5 1 cap PO DAILY #90 cap 10/09/19 12/08/19 Rx mg-hydrochlorothiazide 25 mg capsule omeprazole 40 mg capsule,delayed 40 mg PO DAILY #90 cap 10/26/19 12/08/19 Rx release potassium chloride 10 mEq 20 meq PO BID #180 cap 10/26/19 12/08/19 Rx capsule,extended release atorvastatin 10 mg tablet 10 mg PO DAILY #90 tab 11/01/19 12/08/19 Rx losartan 100 mg tablet 100 mg PO DAILY #90 tab 11/01/19 12/08/19 Rx aripiprazole 2 mg tablet 1 mg PO DAILY tab 11/07/19 12/08/19 History bupropion HCl 300 mg PO QAM 12/08/19 12/08/19 History zolpidem 5 mg PO HS PRN 12/08/19 12/08/19 History Past Med/Surg History Medical History Cervical facet joint syndrome (Chronic) Cervicogenic headache (Chronic) TIA (transient ischemic attack) (Inactive) Surgical History H/O breast surgery H/O colonoscopy H/O laparoscopy H/O lumpectomy (Resolved) right side neck H/O shoulder surgery H/O varicose vein ligation H/O: hysterectomy (Resolved) History of bilateral knee replacement (Resolved) History of left shoulder replacement (Resolved) History of lumpectomy of right breast (Resolved) Hx of cholecystectomy (Resolved) Hx of tonsillectomy (Resolved) Hx of total knee arthroplasty Hx of vascular surgery (Resolved) right leg S/P knee surgery Family History Father Stroke Prostate cancer Stroke syndrome Mother Kidney disease Stroke Myocardial infarction Heart disease Stroke syndrome Unknown Myocardial infarction Prostate cancer Brother Myocardial infarction Other Breast cancer Ulcerative colitis Denies family history of Esophageal cancer Ovarian cancer Crohn's disease Colorectal cancer Social History Smoking Status: Never smoker Hx Alcohol Use: No Hx Substance Use: No Preferred Language: Serbian Communication Ability: Effective Visual Impairment: No Limitations Hearing Ability: Normal Beliefs That Will Affect Care: None marital status: Current Living Situation: Alone current occupational status: employed 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 Feels Safe at Home: Yes Safety Concerns: Feels Safe At This Time Childhood Exposure to Second-Hand Smoke: No Dental Care, Regularly: Yes Physical Activity Frequency: Does not Exercise Seatbelt Use: always Sunscreen Use: Yes Review of Systems Constitutional: no fever, no chills and no fatigue Eyes: no diplopia Ear, Nose, Mouth, Throat: no ear pain Respiratory: + dyspnea on exertion Cardiovascular: no chest pain Gastrointestinal: + abdominal pain, + nausea and + vomiting; no hematemesis and no change in bowel habits Genitourinary: no dysuria Musculoskeletal: no back pain Integumentary: no rash Neurologic: no localized weakness Physical Exam Constitutional: well developed and well nourished; no acute distress Eyes: wears glasses ENMT: Ears: no hearing impairment Neck: trachea midline Respiratory: normal respiratory effort, lungs clear to auscultation normal respiratory effort; no respiratory distress and no labored breathing Cardiovascular: Rate/Rhythm: regular rate and regular rhythm Vessels: dorsalis pedis pulses present Gastrointestinal (Abdomen): abdomen is mildly distended, BS are hypoactive, no rebound tenderness or guarding, pain noted with palpation in generalized pattern but is greatest in the RLQ Musculoskeletal: no calf pain Skin: no rashes, warm and dry Neurologic: moves all extremities; no focal motor deficits Psychiatric: Orientation: alert and oriented x 3 Mood: + anxious mood Results & Data Results & Data ([facility]) Vital Signs (Past 12 Hours) Vital Signs Temp Pulse Resp BP Pulse Ox 12/09/19 01:40 105 H 16 12/09/19 01:31 104 H 18 158/99 H 12/09/19 01:30 101 H 18 12/09/19 01:20 104 H 22 12/09/19 01:10 104 H 17 12/09/19 01:00 149/95 H 12/09/19 00:50 98 12/09/19 00:49 141/115 H 98 12/09/19 00:13 20 97 12/08/19 23:50 98 H 30 H 97 12/08/19 23:40 108 H 21 95 12/08/19 23:36 111 H 25 H 134/88 95 12/08/19 23:30 110 H 20 95 12/08/19 23:20 112 H 18 94 12/08/19 23:17 119 H 21 95 12/08/19 22:56 37.1 C 130 H 20 132/74 97
[2019-12-09] MEDS ORDERED: ONDANSETRON INJ 2 MG/ML 2 ML VIAL IV PRN ×2 (03:52→10:41)
[2019-12-09] MEDS ORDERED: NSS + 20MEQ KCL 20 MEQ/1,000 ML BAG IV SCH (04:00)
[2019-12-09] MEDS: MoRPHine SULFATE 2 MG/ML CARP IV PRN ×2 (05:28→08:43)
[2019-12-09 07:19] LABS: Basophils # (auto) 0.05 K/uL (0-0.2); Basophils % (auto) 0.4 %; Eosinophils # (auto) 0.01 K/uL (0-0.5); Eosinophils % (auto) 0.1 %; Hemoglobin 13.1 g/dL (12.0-16.0); Immature Granulocytes # (auto) 0.02 K/uL (0.00-0.02); Immature Granulocytes % (auto) 0.1 %; Lymphocytes # (auto) 1.09 K/uL (1.2-3.4); Mean Corpuscular Hemoglobin 29.5 pg (25-34); Mean Corpuscular Volume 87.8 fL (80-100); Mean Platelet Volume 9.5 fL (7.4-10.4); Monocytes % (auto) 11.8 %; Neutrophils # (auto) 10.82 K/uL (1.4-6.5); Neutrophils % (auto) 79.6 %; Platelet Count 356 K/uL (130-400); RDW Coefficient of Variation 13.7 % (11.5-14.5); Red Blood Count 4.44 M/uL (4.2-5.4); White Blood Count 13.59 K/uL (4.8-10.8)
[2019-12-09 07:35] LABS: BUN Creatinine Ratio 16.6 (10-20); Calcium 8.3 mg/dl (8.5-10.1); Creatinine Clr Calc Pharmacy 44.3 ml/min; Est GFR (African American) 44.5; Est GFR (Non-African American) 38.4; Potassium 3.2 mmol/L (3.5-5.1)
--- NOTE | 2019-12-09 07:57 | CT Scan Report ---
ABDOMEN AND PELVIS CT WITH IV CONTRAST HISTORY: Constipation with acute mid abdominal pain right mid abd. pain TECHNIQUE: Multiaxial CT images of the abdomen and pelvis were performed following the IV administrat ion of 118 cc of Optiray 320, A dose lowering technique was utilized adhering to the principles of A ZACHARY. COMPARISON STUDY: CTA chest of same day, CT abdomen and pelvis 07/25/2017 FINDINGS: The lung bases are generally clear. There is no pneumoperitoneum identified. Coronary artery calcific ations. The imaged inferior cardiac chambers are otherwise unremarkable. The spleen, pancreas and adr enal glands are unremarkable. Cholecystectomy. The liver is within normal limits. Patency of the hepa tic and portal veins. 1.9 cm cyst of the anterior interpolar left kidney. No ureteral calculi or obst ructive uropathy. Partial distention of the urinary bladder. Hysterectomy. Small amount of free fluid within the dependent pelvis. Mixed plaque of the abdominal aorta without aneurysm. There is no adeno porsha. Mild nonspecific distal esophageal wall thickening. Air-fluid levels are noted within the colon. The cecum is fluid-filled and distended measuring up to 10 cm. There is focal marked narrowing at the sho ction of the cecum and ascending colon on image 302 of series 6 with minimal twisting of the mesenter y. There is also kinking narrowing at the terminal ileum. The appendix is fluid-filled. The remainder of the colon is decompressed. Air is noted around the periphery of the lumen within the cecum. Bones appear intact. Anterolisthesis L4 on L5 is likely secondary to long-standing facet arthrosis. IMPRESSION: 1. Distended cecum with abrupt narrowing of the proximal ascending colon. There is mild adjacent twis ting of the mesentery with narrowing of the distal ileum. Findings are suggestive of cecal volvulus. 2. Peripheral lucencies within the cecum are suggestive of intraluminal air. Pneumatosis could appear similarly. No portal venous air or pneumoperitoneum. 3. Mild distal esophageal wall thickening. 4. Cholecystectomy. 5. Mild dependent free pelvic fluid, likely reactive. 6. Additional findings as above. ACT 112: Negative or not required by law. The above report was generated using voice recognition software. It may contain grammatical, syntax o r spelling errors. Electronically signed by: Bello Gaspar M.D. 12/09/2019 7:56 AM
--- NOTE | 2019-12-09 08:01 | CT Scan Report ---
CT angio chest PE protocol CT DOSE: 2101.93 mGy.cm HISTORY: 69 years-old Female with PE. Acute shortness of breath with abdominal pain TECHNIQUE: Multiple CTA images of the chest were obtained after the intravenous administration of 118 ml Optiray 320. Coronal and sagittal MIPS were obtained from the axial data set and were submitted for review. All measurements were obtained according to NASCET criteria. A dose lowering technique w as utilized adhering to the principles of ALARA. COMPARISON: CT abdomen and pelvis of same day FINDINGS: Cecal distention is noted on the music adapter localizer images. CTA: Mild cardiomegaly. No pericardial effusion. Moderate coronary artery calcifications. Mild calcified p laque of the thoracic aorta. No thoracic aortic aneurysm or dissection. Patency of the imaged great v essels. The pulmonary artery is opacified to the level of the lobar branches. The lobar segmental and subsegmental branches are not well seen secondary to respiratory motion. No central pulmonary emboli identified. CT CHEST: Unremarkable thyroid. There are no pathologically enlarged lymph nodes identified. No pneumothorax, p leural effusion or overt pulmonary edema. Bibasilar groundglass opacities suggest atelectasis. Tiny c alcified granuloma of the basal left lower lobe. Central airways are patent. The entire esophagus is mildly distended and is fluid-filled. Mid and distal esophageal wall thickening is noted with distend ed stomach. Cholecystectomy. Streak artifact from left shoulder total joint arthroplasty. Degenerativ e changes of the right shoulder and spine. Healed remote mid sternal fracture deformity. No acute fra cture or suspicious bone lesion. IMPRESSION: 1. Limited exam as above. No acute aortic pathology or central pulmonary emboli identified. 2. Fluid-filled distended esophagus with distal esophageal wall thickening suspicious for esophagitis . 3. Distended cecum noted on the music adapter localizer images. Please refer to CT abdomen and pelvis study o f same day for further details. ACT 112: Negative or not required by law. The above report was generated using voice recognition software. It may contain grammatical, syntax o r spelling errors. Electronically signed by: Bello Gaspar M.D. 12/09/2019 8:00 AM
[2019-12-09 08:02] LABS: Mean Corpuscular Hgb Conc 33.6 g/dL (32-36)
--- NOTE | 2019-12-09 08:36 | Hospitalist Consultation ---
Date of Consultation December 09, 2019 Assessment & Plan (1) Cecal volvulus: for OR later this AM. medically acceptable risk for procedure. ok to proceed. (2) Hypokalemia: highly likely from poor intake and GI losses. replace. follow up in AM (3) Depression: will want to resume her abilify, wellbutrin, trazodone, and effexor as soon as is safe to take w sips (4) Hypertension: ok to hold home meds for now, follow BP. if runs markedly high (uncontrolled HTN ranges) then can consider prn treatment, otherwise resume home meds once taking better PO (5) Hypothyroidism: given long half-life of levothyroxine, no need for IV replacement unless she has a prolonged NPO phase (6) Hypercholesteremia: hold lipitor until she's taking PO (7) DVT prophylaxis: per surgery (right now SCDs) (8) Discharge planning issues: surgery today, anticipate several days in hospital for post op recovery. as she recovers, PT/OT eval and treat to aid in discharge decision making process History of Present Illness Attending Physician: Zacarias Boyle, DO History of Present Illness ongoing abdominal pain. feeling a little short of breath but feels definitely like it is because her belly is pressing up into her chest. no exertional dyspnea or chest pain. is worried about what will happen with her - he is in hospital to and plans had been for him to go home but she is his primary caregiver. longstanding HTN and hypercholesterol, but no vascular endpoints that she is aware of. Allergies Allergy/AdvReac Type Severity Reaction Status Date / Time ciprofloxacin Allergy Intermediate RASH Verified 12/08/19 23:31 hydromorphone Allergy Mild GOOFY AND Verified 12/08/19 23:31 TALKING CRAZINESS Home Medications Home Medications Medication Instructions Recorded Confirmed Type aspirin 81 mg tablet,delayed 81 mg PO DAILY 07/18/18 12/08/19 History release cholecalciferol (vitamin D3) 50 2,000 units PO DAILY 07/18/18 12/08/19 History mcg (2,000 unit) capsule docusate sodium 100 mg capsule 100 mg PO BID 07/18/18 12/08/19 History magnesium oxide 400 mg PO DAILY 07/18/18 12/08/19 History trazodone 100 mg tablet 150 mg PO HS tab 07/18/18 12/08/19 History venlafaxine 75 mg capsule,extended 75 mg PO DAILY 07/18/18 12/08/19 History release 24 hr vitamin B complex 1 tab PO DAILY 07/18/18 12/08/19 History levothyroxine 75 mcg tablet 75 mcg PO DAILY #30 tab 06/27/19 12/08/19 Rx triamterene 37.5 1 cap PO DAILY #90 cap 10/09/19 12/08/19 Rx mg-hydrochlorothiazide 25 mg capsule omeprazole 40 mg capsule,delayed 40 mg PO DAILY #90 cap 10/26/19 12/08/19 Rx release potassium chloride 10 mEq 20 meq PO BID #180 cap 10/26/19 12/08/19 Rx capsule,extended release atorvastatin 10 mg tablet 10 mg PO DAILY #90 tab 11/01/19 12/08/19 Rx losartan 100 mg tablet 100 mg PO DAILY #90 tab 11/01/19 12/08/19 Rx aripiprazole 2 mg tablet 1 mg PO DAILY tab 11/07/19 12/08/19 History bupropion HCl 300 mg PO QAM 12/08/19 12/08/19 History zolpidem 5 mg PO HS PRN 12/08/19 12/08/19 History Patient History Medical History Ataxia (Acute) Cervical facet joint syndrome (Chronic) Cervicogenic headache (Chronic) Depression (Chronic) Hypertension (Chronic) Obesity Occipital neuralgia (Chronic) TIA (transient ischemic attack) (Inactive) Surgical History H/O breast surgery H/O colonoscopy H/O laparoscopy H/O lumpectomy (Resolved) right side neck H/O shoulder surgery H/O varicose vein ligation H/O: hysterectomy (Resolved) History of bilateral knee replacement (Resolved) History of left shoulder replacement (Resolved) History of lumpectomy of right breast (Resolved) Hx of cholecystectomy (Resolved) Hx of tonsillectomy (Resolved) Hx of total knee arthroplasty Hx of vascular surgery (Resolved) right leg S/P knee surgery Family History Father Stroke Prostate cancer Stroke syndrome Mother Kidney disease Stroke Myocardial infarction Heart disease Stroke syndrome Unknown Myocardial infarction Prostate cancer Brother Myocardial infarction Other Breast cancer Ulcerative colitis Denies family history of Esophageal cancer Ovarian cancer Crohn's disease Colorectal cancer Social History Smoking Status: Never smoker Hx Alcohol Use: No Hx Substance Use: No Preferred Language: Pashto Communication Ability: Effective Visual Impairment: No Limitations Hearing Ability: Normal Beliefs That Will Affect Care: None marital status: Current Living Situation: Alone current occupational status: employed 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 heent nc at mm sl dry cardio reg no r/m/g lungs cta b/l no rr/w/ good effort abd soft but quite distended mod diffuse tenderness although no guarding no rebound no rigidity. ext no c/c/e. skin no rashes no pallor or icterus. neuro shows cn 2-12 grossly intact gross motor and sensory intact. mental good recent and remote recall normal mood and affect good judgement and insight. msk no gross deformities, overall normal joint motion. Results & Data Results & Data ([facility]) Vital Signs (Past 12 Hours) Vital Signs Temp Pulse Pulse Resp BP BP Pulse Ox 12/09/19 07:19 98.2 F 63 16 138/79 95 12/09/19 04:33 97.7 F 118 H 18 126/74 98 12/09/19 04:00 97.7 F 118 H 18 126/74 98 12/09/19 03:52 97.7 F 18 126/74 98 12/09/19 03:20 107 H 21 94 12/09/19 03:10 116 H 17 95 12/09/19 03:01 116 H 20 94 12/09/19 03:00 116 H 18 149/102 H 96 12/09/19 02:50 110 H 27 H 95 12/09/19 02:40 121 H 24 95 12/09/19 02:31 126 H 19 96 12/09/19 02:30 125 H 27 H 134/94 96 12/09/19 02:20 116 H 19 12/09/19 02:10 98 H 25 H 12/09/19 02:01 101 H 20 12/09/19 02:00 99 H 18 145/109 H 12/09/19 01:50 104 H 20 12/09/19 01:40 105 H 16 12/09/19 01:31 104 H 18 158/99 H 12/09/19 01:30 101 H 18 12/09/19 01:20 104 H 22 12/09/19 01:10 104 H 17 12/09/19 01:00 149/95 H 12/09/19 00:50 98 12/09/19 00:49 141/115 H 98 12/09/19 00:13 20 97 12/08/19 23:50 98 H 30 H 97 12/08/19 23:40 108 H 21 95 12/08/19 23:36 111 H 25 H 134/88 95 12/08/19 23:30 110 H 20 95 12/08/19 23:20 112 H 18 94 12/08/19 23:17 119 H 21 95 12/08/19 22:56 98.8 F 130 H 20 132/74 97 PG Care Time/CCT Total # of Minutes Spent Total Time Spent with Patient: Total time spent is greater than 50% in coordination of care (as documented) at patient's floor/unit and/or counseling patient: Coding Level of Care Code 71879 Inpt Consult Level 4 Diagnoses Cecal volvulus K56.2 Hypokalemia E87.6 Depression F32.9 Hypertension I10 Hypothyroidism E03.9 Hypercholesteremia E78.00 DVT prophylaxis Z29.9 Discharge planning issues Z02.9
--- NOTE | 2019-12-09 08:49 | XRay Report ---
XR chest 1V portable HISTORY: 69 years-old Female sob acute shortness of breath COMPARISON: CTA chest of same day, chest radiograph 12/02/2018 TECHNIQUE: Portable AP view of the chest FINDINGS: Cardiomediastinal and hilar silhouettes are within normal limits. Calcified plaque of the thoracic ao rtic arch. Mild chronic interstitial coarsening of the lung bases. No pneumothorax, pleural effusion, airspace consolidation or overt pulmonary edema. Degenerative changes of the spine and right shoulde r. Reverse left shoulder total joint arthroplasty. IMPRESSION: No acute process. ACT 112: Negative or not required by law. The above report was generated using voice recognition software. It may contain grammatical, syntax o r spelling errors. Electronically signed by: Bello Gaspar M.D. 12/09/2019 8:47 AM
--- NOTE | 2019-12-09 09:41 | Anesthesiology Consultation ---
Date of Service December 09, 2019 Assessment & Plan (1) Encounter for pre-operative examination: (2) Obesity: Chart Review Chart Review: Acceptable Risk for Surgery (urgent) History Surgery Operation Date: 12/09/19 07:30 Proposed Procedures p Exploratory Laparotomy - Zacarias Boyle, Height/Weight Height: 5 ft 4 in Weight: 105.7 kg Allergies Allergy/AdvReac Type Severity Reaction Status Date / Time ciprofloxacin Allergy Intermediate RASH Verified 12/08/19 23:31 hydromorphone Allergy Mild GOOFY AND Verified 12/08/19 23:31 TALKING CRAZINESS Medications Home Medications Medication Instructions Recorded Confirmed Last Taken aspirin 81 mg tablet,delayed 81 mg PO DAILY 07/18/18 12/08/19 Unknown release cholecalciferol (vitamin D3) 50 2,000 units PO DAILY 07/18/18 12/08/19 Unknown mcg (2,000 unit) capsule docusate sodium 100 mg capsule 100 mg PO BID 07/18/18 12/08/19 Unknown magnesium oxide 400 mg PO DAILY 07/18/18 12/08/19 Unknown trazodone 100 mg tablet 150 mg PO HS tab 07/18/18 12/08/19 Unknown venlafaxine 75 mg capsule,extended 75 mg PO DAILY 07/18/18 12/08/19 Unknown release 24 hr vitamin B complex 1 tab PO DAILY 07/18/18 12/08/19 Unknown levothyroxine 75 mcg tablet 75 mcg PO DAILY #30 tab 06/27/19 12/08/19 Unknown triamterene 37.5 1 cap PO DAILY #90 cap 10/09/19 12/08/19 Unknown mg-hydrochlorothiazide 25 mg capsule omeprazole 40 mg capsule,delayed 40 mg PO DAILY #90 cap 10/26/19 12/08/19 Unknown release potassium chloride 10 mEq 20 meq PO BID #180 cap 10/26/19 12/08/19 Unknown capsule,extended release atorvastatin 10 mg tablet 10 mg PO DAILY #90 tab 11/01/19 12/08/19 Unknown losartan 100 mg tablet 100 mg PO DAILY #90 tab 11/01/19 12/08/19 Unknown aripiprazole 2 mg tablet 1 mg PO DAILY tab 11/07/19 12/08/19 Unknown bupropion HCl 300 mg PO QAM 12/08/19 12/08/19 Unknown zolpidem 5 mg PO HS PRN 12/08/19 12/08/19 Unknown Active Medications Generic Name Dose Route Start Last Admin Trade Name Freq PRN Reason Stop Dose Admin Potassium Chloride/Sodium Chloride 20 meq in 1,000 mls @ 75 mls/hr 12/09/19 04:00 12/09/19 05:51 Normal Saline W/20 Meq Kcl IV 01/08/20 03:59 75 mls/hr .[id number] RAJI Administration Potassium Chloride 10 meq in 100 mls @ 100 mls/hr 12/09/19 08:00 12/09/19 09:37 K Joe / Wtr IV 12/09/19 11:59 75 mls/hr Q1H RAJI Infusion Ioversol 118 ml 12/08/19 23:54 12/08/19 23:54 Optiray 320 125ml IV 12/12/19 23:53 1 ml ONCE PRN Administration Interaction Checking Morphine Sulfate 2 mg 12/09/19 05:06 12/09/19 08:43 Morphine Sulfate IV 12/23/19 05:05 2 mg Q3H PRN Administration Pain Ondansetron HCl 4 mg 12/09/19 03:52 12/09/19 08:43 Zofran IV 01/08/20 03:51 4 mg Q6H PRN Administration Nausea Past Medical History Medical History Cervical facet joint syndrome (Chronic) Cervicogenic headache (Chronic) TIA (transient ischemic attack) (Inactive) Past Family History Family History Father Stroke Prostate cancer Stroke syndrome Mother Kidney disease Stroke Myocardial infarction Heart disease Stroke syndrome Unknown Myocardial infarction Prostate cancer Brother Myocardial infarction Other Breast cancer Ulcerative colitis Denies family history of Esophageal cancer Ovarian cancer Crohn's disease Colorectal cancer Past Surgical History Surgical History H/O breast surgery H/O colonoscopy H/O laparoscopy H/O lumpectomy (Resolved) right side neck H/O shoulder surgery H/O varicose vein ligation H/O: hysterectomy (Resolved) History of bilateral knee replacement (Resolved) History of left shoulder replacement (Resolved) History of lumpectomy of right breast (Resolved) Hx of cholecystectomy (Resolved) Hx of tonsillectomy (Resolved) Hx of total knee arthroplasty Hx of vascular surgery (Resolved) right leg S/P knee surgery Social History Smoking Status: Never smoker Hx Alcohol Use: No Hx Substance Use: No substance use type: does not use Physical Exam Vital Signs Last Vital Signs Temp 36.8 C 12/09/19 07:19 Pulse 63 12/09/19 07:19 Resp 16 12/09/19 07:19 BP 138/79 12/09/19 07:19 Pulse Ox 95 12/09/19 07:19 Testing Laboratory Results 12/09/19 07:04 12/09/19 07:04 PT 10.9 Seconds (9.0-12.0) 12/08/19 23:20 INR 1.0 (0.9-1.1) 12/08/19 23:20 APTT 30.2 Seconds (21.0-31.0) 12/08/19 23:20 Urine Color Yellow 12/09/19 00:45 Urine Appearance Clear (Clear) 12/09/19 00:45 Urine pH 5.0 (4.5-7.5) 12/09/19 00:45 Ur Specific Tracy > 1.045 (1.000-1.030) H 12/09/19 00:45 Urine Protein Trace (Negative) H 12/09/19 00:45 Urine Glucose (UA) Negative (Negative) 12/09/19 00:45 Urine Ketones Negative (Negative) 12/09/19 00:45 Urine Nitrite Negative (Negative) 12/09/19 00:45 Ur Leukocyte Esterase Negative (Negative) 12/09/19 00:45 Urine WBC (Auto) 1-5 /hpf (0-5) 12/09/19 00:45 Urine RBC (Auto) 0-4 /hpf (0-4) 12/09/19 00:45 U Hyaline Cast (Auto) 5-10 /lpf (0-5) H 12/09/19 00:45 U Epithel Cells (Auto) 20-30 /lpf (0-5) H 12/09/19 00:45 Urine Bacteria (Auto) Negative (Negative) 12/09/19 00:45 Electrocardiogram Date: 12/09/19 Findings: + NSST changes, + ST @ (108) and + DE (possible anterior DE cited previously) Chest X-Ray Date: 12/08/19 Findings: + NAD
[2019-12-09] MEDS ORDERED: FAMOTIDINE 20 MG in SYRINGE 3 ML IV ONE (10:00)
[2019-12-09] MEDS ORDERED: SUCCINYLCHOLINE CHLORIDE 20 MG/ML 10 ML VIAL IV ONE (10:05)
[2019-12-09] MEDS ORDERED: LIDOCAINE HCL 2% 2 ML VIAL/AMP(20MG/ML) INFIL ONE (10:05)
[2019-12-09] MEDS ORDERED: PROPOFOL IV EMULSION 10 MG/ML 20 ML VIAL IV ONE ×2 (10:05→11:45)
[2019-12-09] MEDS ORDERED: ROCURONIUM BROMIDE 10 MG/ML 5 ML VIAL IV ONE (10:05)
[2019-12-09] MEDS ORDERED: fentaNYL citrate 100 MCG/2 ML VIAL ONE ×3 (10:06→12:02)
[2019-12-09] MEDS ORDERED: MoRPHine SULFATE 10 MG/ML CARP/VIAL IV PRN (10:41)
[2019-12-09] MEDS ORDERED: LABETALOL HCL IV 5 MG/ML 20ML IV PRN (10:41)
[2019-12-09] MEDS ORDERED: ATROPINE SULFATE 0.1 MG/ML 10ML SYR IV PRN (10:41)
[2019-12-09] MEDS ORDERED: PROMETHAZINE HCL 6.25 MG in SODIUM CHLORIDE 0.9% 50 ML IV PRN (10:41)
[2019-12-09] MEDS ORDERED: GLYCOPYRROLATE 0.2 MG/ML VIAL ONE (11:54)
[2019-12-09] MEDS ORDERED: NEOSTIGMINE METHYLSULFATE 5 MG/5 ML SYR ONE (11:54)
[2019-12-09] MEDS ORDERED: ONDANSETRON INJ 2 MG/ML 2 ML VIAL ONE (11:54)
[2019-12-09] MEDS ORDERED: cefOXitin 2,000 MG in DEXTROSE 5% 50 ML IV SCH (12:00)
--- NOTE | 2019-12-09 13:40 | Operative Report ---
PG Post Operative Report Pre & Post Diagnosis Operation Date: 12/09/19 07:30 Pre-Op Diagnosis: CECAL VOLVULUS Post-Op Diagnosis: CECAL VOLVULUS;adhesions I identified the patient and participated in the time-out.: Yes Procedure Operation Date: 12/09/19 07:30 Actual Procedures p Exploratory Laparotomy, right hemicolectomy, enterolysis(Not Applicable) - Zacarias Boyle DO Surgeon Zacarias Boyle DO Snubber n/a Estimated Blood Loss 25 Findings Consistent with Post-Op Diagnosis Specimens terminal ileum, cecum, portion of right colon Description of Procedure After informed consent was obtained the patient was taken to the operating room and placed in supine position. A Estrada catheter was attempted multiple times by nursing without success. The patient was subsequently sterilely prepped and draped in usual fashion. An NG tube was placed by anesthesia. I began by making a midline incision from above the umbilicus down and around to her the pelvis. This carried down through soft tissue using electrocautery. The anterior rectus fascia was opened in the midline. Peritoneum was elevated with hemostats and incised under direct vision using a Metzenbaum scissor. The incision was then opened to both poles using cautery. Once in the abdomen there was no fluid or succus or foul odor. There was an extremely large cecum and portion of right colon. Upon examination there was a large fibrous adhesion pulling the terminal ileum into the retroperitoneum and subsequently obstructing the cecum causing the cecal dilation. I was able to divide this adhesion using cautery. However after doing so the cecum itself did not appear healthy. It was extremely dilated with some serosal tears. Also the terminal ileum had an area of ischemia on it. I therefore decided to resect this. A Bookwalter retractor was used throughout the case to help with exposure. I began by transecting the terminal ileum several inches proximal to the ileocecal valve. I then freed up adhesions along the right side of the abdomen using blunt dissection small amounts of cautery and sharp scissor lysis. I then came along the white line of Toldt again using finger fractionation and cautery. The patient had a prior open cholecystectomy making the dissection somewhat difficult. I was able to free up the majority of the right colon. I was able to salvage the right colic vessel and transected just proximal to the right colic vessels of the colon using a ROSALIE 60 mm purple stapler to do so. I then used a LigaSure device to take down the mesentery of the right colon cecum and terminal ileum. The specimen was passed off to be sent to pathology. Next I performed a side to side ileocolonic anastomosis using a ROSALIE brown cartridge 60 mm stapler. A TA 60 stapling device was then used to close the common enterotomy. 3-0 silk was used to oversew the staple lines in Lembert fashion. A crotch stitch was also placed using 3-0 silk. 2-0 Vicryl was used to close the mesenteric defect. At the end of the procedure the anastomosis was widely patent. There was no evidence of ischemia and there was adequate hemostasis. A quick look around the abdomen showed no other abnormality other than the upper abdominal adhesions previously mentioned. We thoroughly irrigated the entire abdomen. A 10 flat Jose-Ortiz drain was brought in through a right lower quadrant incision and placed from the paracolic gutter into the pelvis. It was secured to the skin using 2-0 nylon. Fascia was closed using 0-looped PDS starting either pole and running them and securing them together in the midline. Soft tissue was irrigated and skin was closed using skin lorenzo. Silver dressing was applied as well as gauze and tape. The patient was awakened extubated and transferred recovery in guarded condition. I attest to the content of the Intraoperative Record and any orders documented therein. Any exceptions are noted below.
--- NOTE | 2019-12-09 14:07 | Anesthesiology Progress Note ---
Date of Service December 09, 2019 Anesthesia Post Procedure Vital Signs Vital Signs: Temp Pulse Pulse Resp BP BP Pulse Ox 12/09/19 13:56 66 18 138/63 96 12/09/19 13:46 87 18 99/61 L 100 12/09/19 13:33 36.4 C L 81 20 124/75 99 12/09/19 10:34 37.3 C 108 H 18 134/84 98 12/09/19 07:19 36.8 C 63 16 138/79 95 12/09/19 04:33 36.5 C 118 H 18 126/74 98 12/09/19 04:00 36.5 C 118 H 18 126/74 98 12/09/19 03:52 36.5 C 18 126/74 98 12/09/19 03:20 107 H 21 94 12/09/19 03:10 116 H 17 95 12/09/19 03:01 116 H 20 94 12/09/19 03:00 116 H 18 149/102 H 96 12/09/19 02:50 110 H 27 H 95 12/09/19 02:40 121 H 24 95 12/09/19 02:31 126 H 19 96 12/09/19 02:30 125 H 27 H 134/94 96 12/09/19 02:20 116 H 19 12/09/19 02:10 98 H 25 H 12/09/19 02:01 101 H 20 12/09/19 02:00 99 H 18 145/109 H 12/09/19 01:50 104 H 20 12/09/19 01:40 105 H 16 12/09/19 01:31 104 H 18 158/99 H 12/09/19 01:30 101 H 18 12/09/19 01:20 104 H 22 12/09/19 01:10 104 H 17 12/09/19 01:00 149/95 H 12/09/19 00:50 98 12/09/19 00:49 141/115 H 98 12/09/19 00:13 20 97 12/08/19 23:50 98 H 30 H 97 12/08/19 23:40 108 H 21 95 12/08/19 23:36 111 H 25 H 134/88 95 12/08/19 23:30 110 H 20 95 12/08/19 23:20 112 H 18 94 12/08/19 23:17 119 H 21 95 07/25/20 22:56 37.1 C 130 H 20 132/74 97 Pain Intensity Right Upper Abdomen: Pain Intensity: 3 Transfer of Care Handoff Completed per policy Notes Mental Status: alert / awake / arousable Patient Amnestic to Procedure: Yes Nausea / Vomiting: adequately controlled Pain: adequately controlled Airway Patency, RR, SpO2: stable & adequate BP & HR: stable & adequate Hydration State: stable & adequate Anesthetic Complications: no major complications apparent
[2019-12-09] MEDS ORDERED: ACETAMINOPHEN 1,000 MG/100 ML VIAL IV PRN (14:29)
[2019-12-09] MEDS ORDERED: MoRPHine SULFATE 4 MG/ML 1 ML CARP\\VIAL ONE (14:37)
[2019-12-09] MEDS: NSS + 20MEQ KCL 20 MEQ/1,000 ML BAG IV SCH ×2 (16:43→22:11)
[2019-12-09] MEDS: cefOXitin 2,000 MG in DEXTROSE 5% 50 ML IV SCH ×2 (16:51→22:26)
[2019-12-09] MEDS: MoRPHine SULFATE 4 MG/ML 1 ML CARP\\VIAL IV PRN ×2 (17:43→22:10)
[2019-12-10] MEDS: MoRPHine SULFATE 4 MG/ML 1 ML CARP\\VIAL IV PRN ×2 (03:02→12:04)
[2019-12-10] MEDS: MoRPHine SULFATE 2 MG/ML CARP IV PRN ×2 (05:36→08:58)
[2019-12-10] MEDS: cefOXitin 2,000 MG in DEXTROSE 5% 50 ML IV SCH ×2 (05:37→11:30)
[2019-12-10] MEDS: NSS + 20MEQ KCL 20 MEQ/1,000 ML BAG IV SCH (05:37)
[2019-12-10 05:58] LABS: Hematocrit (blood only) 36.7 % (37-47); Mean Corpuscular Hemoglobin 29.2 pg (25-34); Mean Corpuscular Hgb Conc 32.7 g/dL (32-36); Mean Corpuscular Volume 89.3 fL (80-100); Mean Platelet Volume 9.9 fL (7.4-10.4); Platelet Count 319 K/uL (130-400); RDW Standard Deviation 45.9 fL (36.4-46.3); Red Blood Count 4.11 M/uL (4.2-5.4); White Blood Count 15.19 K/uL (4.8-10.8)
[2019-12-10 06:18] LABS: Basophils # (auto) 0.02 K/uL (0-0.2); Basophils % (auto) 0.1 %; Immature Granulocytes # (auto) 0.04 K/uL (0.00-0.02); Immature Granulocytes % (auto) 0.3 %; Lymphocytes # (auto) 0.81 K/uL (1.2-3.4); Lymphocytes % (auto) 5.3 %; Monocytes # (auto) 2.17 K/uL (0.11-0.59); Monocytes % (auto) 14.3 %; Neutrophils # (auto) 12.15 K/uL (1.4-6.5)
[2019-12-10 06:31] LABS: Albumin Globulin Ratio 0.6 (0.9-2); Albumin Level 2.2 gm/dl (3.4-5.0); BUN Creatinine Ratio 18.1 (10-20); Bilirubin,Total 0.5 mg/dl (0.2-1); Calcium 7.5 mg/dl (8.5-10.1); Creatinine Clr Calc Pharmacy 37.3 ml/min; Est GFR (African American) 36.1; Est GFR (Non-African American) 31.1; Globulin 3.8 gm/dl (2.5-4.0); Potassium 4.6 mmol/L (3.5-5.1)
--- NOTE | 2019-12-10 09:07 | Hospitalist Progress Note ---
Date of Service December 10, 2019 Assessment & Plan (1) Cecal volvulus: 12/09/19 Exploratory Laparotomy, right hemicolectomy, enterolysisSurgeon: Zacarias Boyle (2) Hypokalemia: Replete and follow with GI losses (3) Depression: will want to resume her abilify, wellbutrin, trazodone, and effexor as soon as is safe to take w sips as of 12/10/2019 patient is not reliably taking p.o. meds (4) Hypertension: Continue to hold home meds with lower blood pressure, typical meds are losartan and Dyazide (5) Hypothyroidism: given long half-life of levothyroxine, no need for IV replacement unless she has a prolonged NPO phase (6) Hypercholesteremia: hold lipitor until she's taking PO (7) DVT prophylaxis: per surgery (right now SCDs) (8) Discharge planning issues: surgery today, anticipate several days in hospital for post op recovery. as she recovers, PT/OT eval and treat to aid in discharge decision making process Admission and Anticipated Discharge Date Admission Date: December 09, 2019 Subjective Patient with slow improvement having some ice chips still with NG tube draining likely ice chips she is eating, Surgery is managing fluid resuscitation and advancement of diet Review of Systems Review of Systems: Mild to moderate distress and fatigue no headache, blurry or double vision no speech or swallowing issues no chest pain, pressure or palpitations no shortness of breath, cough or wheezes Mild abdominal pain persistent nausea plus minus flatus no dysuria, hematuria or frequency no focal joint pain or swelling no back pain, CVA tenderness or radicular pain no bruising, bleeding or rashes no focal signs of weakness or numbness or altered sensation no complaints or anxiety or depression Physical Exam Physical Exam: The patient appeared in mild distress Vital signs as documented. Head exam is normocephalic atraumatic no scleral icterus Neck is without JVD, thyromegaly, or carotid bruits. Lungs are clear to auscultation, no focal loss of breath sounds Cardiac exam, Rhythm is regular.. No murmurs, rubs or gallops. Abdominal exam reveals hypoactive but present l bowel sounds, soft nontypical mild tenderness Extremities are nonedematous and both pedal pulses are normal. Neurologic exam is alert and oriented, no focal loss of strength or sensation Skin is without bruises or rashes Psychologically is without concerns for anxiety or depression Results & Data Results & [facility] ([facility]) Vital Signs (Past 12 Hours) Vital Signs Temp Pulse Pulse Resp BP Pulse Ox 12/10/19 07:30 99.1 F 102 H 20 113/71 90 12/10/19 02:42 97.9 F 107 H 18 136/52 L 95 12/10/19 01:05 114 H 12/09/19 22:55 97.9 F 115 H 18 130/78 96 PG Care Time/CCT Total # of Minutes Spent Total Time Spent with Patient: Total time spent is greater than 50% in coordination of care (as documented) at patient's floor/unit and/or counseling patient: Coding Level of Care Code 80875 Subseq Hosp Care Lvl 2 Diagnoses Cecal volvulus K56.2 Hypokalemia E87.6 Depression F32.9 Hypertension I10 Hypothyroidism E03.9 Hypercholesteremia E78.00 DVT prophylaxis Z29.9 Discharge planning issues Z02.9
[2019-12-10] MEDS ORDERED: SODIUM CHLORIDE 0.9% 1000ML 1,000 ML IV SCH (11:30)
[2019-12-10] MEDS ORDERED: OXYCODONE HCL IR 5 MG TAB (IMMEDIATE RELEASE) PO PRN (11:50)
--- NOTE | 2019-12-10 11:56 | Surgery Progress Note ---
Date of Service December 10, 2019 Assessment & Plan (1) Cecal volvulus: pod 1 doing ok will d/c NGT and start clears will add oral analgesics PT/OT consults Subjective pt reasonably uncomfortable ( expected). having abdominal pain. feels "dry". NGT discomfort. wants something more for abdominal pain. Physical Exam Physical Exam: alert. mildly incomfortable. abd: soft. expected tenderness. BECCA serous. Results & Data Vital Signs (Past 12 Hours) Vital Signs Temp Pulse Pulse Resp BP Pulse Ox 12/10/19 11:39 36.5 C 108 H 20 109/69 90 12/10/19 09:03 105 H 12/10/19 07:30 37.3 C 102 H 20 113/71 90 12/10/19 02:42 36.6 C 107 H 18 136/52 L 95 12/10/19 01:05 114 H PG Care Time/CCT Total # of Minutes Spent Total Time Spent with Patient: Total time spent is greater than 50% in coordination of care (as documented) at patient's floor/unit and/or counseling patient: Coding Level of Care Code None Diagnoses Cecal volvulus K56.2
[2019-12-10] MEDS ORDERED: SODIUM CHLORIDE 0.9% 1000ML 1,000 ML IV ONE (12:19)
[2019-12-10] MEDS ORDERED: HYDROmorphone INJ 0.5 MG/0.5 ML SYR IV PRN (12:26)
[2019-12-10] MEDS ORDERED: ACETAMINOPHEN 1000 MG/100 ML IV IV PRN (12:26)
[2019-12-10] MEDS: SODIUM CHLORIDE 0.9% 1000ML 1,000 ML IV SCH ×2 (13:30→20:13)
--- NOTE | 2019-12-10 13:35 | Electrocardiogram Report ---
Test Reason : Blood Pressure : / mmHG Vent. Rate : 115 BPM Atrial Rate : 115 BPM P-R Int : 150 ms QRS Dur : 074 ms QT Int : 318 ms P-R-T Axes : -08 -14 079 degrees QTc Int : 439 ms Poor data quality, interpretation may be adversely affected Sinus tachycardia Cannot rule out Anterior infarct , age undetermined Abnormal ECG When compared with ECG of 02-AUG-2017 14:07, ST now depressed in Lateral leads T wave inversion now evident in Lateral leads Confirmed by Nuno Galvez ([id number]) on 12/10/2019 1:35:18 PM Referred By: REFERRED SELF Confirmed By:Nuno Galvez
--- NOTE | 2019-12-10 13:46 | Electrocardiogram Report ---
Test Reason : Blood Pressure : / mmHG Vent. Rate : 108 BPM Atrial Rate : 108 BPM P-R Int : 184 ms QRS Dur : 078 ms QT Int : 340 ms P-R-T Axes : 031 -29 037 degrees QTc Int : 455 ms Sinus tachycardia Minimal voltage criteria for LVH, may be normal variant Possible Anterior infarct (cited on or before 08-DEC-2019) Abnormal ECG When compared with ECG of 08-DEC-2019 23:13, (unconfirmed) Nonspecific T wave abnormality now evident in Inferior leads Nonspecific T wave abnormality now evident in Anterior leads Nonspecific T wave abnormality has replaced inverted T waves in Lateral leads Confirmed by Nuno Galvez ([id number]) on 12/10/2019 1:46:03 PM Referred By: REFERRED SELF Confirmed By:Nuno Galvez
[2019-12-11] MEDS: ONDANSETRON INJ 2 MG/ML 2 ML VIAL IV PRN ×2 (04:16→13:30)
[2019-12-11] MEDS: HYDROmorphone INJ 1 MG/ML SYRINGE IV PRN ×2 (04:16→13:30)
[2019-12-11] MEDS: SODIUM CHLORIDE 0.9% 1000ML 1,000 ML IV SCH ×3 (04:16→20:24)
[2019-12-11 06:29] LABS: Hematocrit (blood only) 35.3 % (37-47); Hemoglobin 11.7 g/dL (12.0-16.0); Mean Corpuscular Hemoglobin 29.6 pg (25-34); Mean Corpuscular Hgb Conc 33.1 g/dL (32-36); Mean Corpuscular Volume 89.4 fL (80-100); Platelet Count 334 K/uL (130-400); RDW Standard Deviation 46.1 fL (36.4-46.3); Red Blood Count 3.95 M/uL (4.2-5.4)
[2019-12-11 07:12] LABS: BUN Creatinine Ratio 26.8 (10-20); Calcium 7.8 mg/dl (8.5-10.1); Creatinine Clr Calc Pharmacy 60.3 ml/min; Est GFR (African American) 66.4; Est GFR (Non-African American) 57.3; Potassium 3.9 mmol/L (3.5-5.1)
[2019-12-11] MEDS: LOSARTAN POTASSIUM 50 MG TAB PO SCH (09:13)
--- NOTE | 2019-12-11 09:17 | Surgery Progress Note ---
Date of Service December 11, 2019 Assessment & Plan (1) Cecal volvulus: POD#2 exploratory laparotomy, R hemicolectomy, lysis of adhesions WBC: 12 (15) Patient may have an ileus, will obtain KUB to evaluate and back patient down to NPO for now while awaiting return of bowel function Incisions c/d/i with midline lorenzo, no sign of infection BECCA serosanguineous Appreciate medicine assistance with patient Encourage patient to get out of bed to chair today as above. pt continues to feel "terrible"...non-specific complaints. mild nausea. no bowel fx yet. incision looks good. BECCA serous POD 2-- increase activity/OOB. continue fluid replacement/supportive care. will check KUB and back diet down. Subjective Patient says she is not feeling too well. When she is drinking liquids she is burping often. Says she had a small bout of emesis overnight. Has not been out of bed much. Physical Exam Physical Exam: awake/alert Gastrointestinal (Abdomen): Inspection/Auscultation: + abdominal surgical incision (c/d/i with surgical lorenzo at midline) and + abdominal surgical drain present (BECCA serous (40cc)) Results & Data Vital Signs (Past 12 Hours) Vital Signs Temp Pulse Pulse Resp BP Pulse Ox 12/11/19 08:20 101 H 12/11/19 07:47 36.4 C L 91 H 20 170/89 H 91 12/11/19 04:00 162/86 H 12/11/19 03:42 36.8 C 92 H 18 185/90 H 90 12/11/19 01:00 112 H 12/10/19 23:50 37.0 C 105 H 18 150/71 H 93 PG Care Time/CCT Total # of Minutes Spent Total Time Spent with Patient: Total time spent is greater than 50% in coordination of care (as documented) at patient's floor/unit and/or counseling patient: Coding Level of Care Code None Diagnoses Cecal volvulus K56.2
--- NOTE | 2019-12-11 09:56 | XRay Report ---
XR KUB/Abdomen 1 view CLINICAL HISTORY: eval bowel pattern, s/p R hemicolectomy COMPARISON STUDY: No previous studies for comparison. FINDINGS: Moderate gastric distention. Postoperative changes in the right abdominal and pelvic region with evidence for a low pelvic drainage catheter. Mild nonobstructive post procedural ileus. IMPRESSION: 1. Mild to moderate postprocedure ileus. 2. Moderate gastric distention. ACT 112: Negative or not required by law. The above report was generated using voice recognition software. It may contain grammatical, syntax or spelling errors. Electronically signed by: Lico Damian M.D. 12/11/2019 9:54 AM
[2019-12-11] MEDS: ENOXAPARIN INJ 40 MG/0.4 ML SYR SQ SCH (10:36)
[2019-12-11] MEDS ORDERED: HydrALAZINE HCL 20 MG/ML VIAL IV PRN (18:08)
--- NOTE | 2019-12-11 18:13 | Hospitalist Progress Note ---
Date of Service December 11, 2019 Assessment & Plan (1) Cecal volvulus: 12/09/19 Exploratory Laparotomy, right hemicolectomy, enterolysisSurgeon: Zacarias Boyle persistent post op ileus (2) Hypokalemia: Replete and follow with GI losses, with vomiting watch ivf (3) Depression: will want to resume her abilify, wellbutrin, trazodone, and effexor as soon as is safe to take w sips as of 12/10/2019 patient is not reliably taking p.o. meds (4) Hypertension: attempted to give losartan but not with ongoing ileus, will order hydralazine (5) Hypothyroidism: replete with 50% dose (6) Hypercholesteremia: hold lipitor until she's taking PO (7) DVT prophylaxis: lovenox started (8) Discharge planning issues: , anticipate several days in hospital now with ileus for post op recovery. as she recovers, PT/OT eval and treat to aid in discharge decision making process Admission and Anticipated Discharge Date Admission Date: December 09, 2019 Subjective Patient says she is not feeling well with abdominal pain and distension, surgery did x rays of abdomen which show persistent post op ileus, did have some vomiting 12/10 Review of Systems Review of Systems: Mild to moderate distress and fatigue, overall uncomfortable no headache, blurry or double vision no speech or swallowing issues no chest pain, pressure or palpitations no shortness of breath, cough or wheezes Mild abdominal pain persistent nausea with some vomiting 12/10 no dysuria, hematuria or frequency no focal joint pain or swelling no back pain, CVA tenderness or radicular pain no bruising, bleeding or rashes no focal signs of weakness or numbness or altered sensation no complaints or anxiety or depression Physical Exam Physical Exam: The patient appeared in mild to moderate distress Vital signs as documented. Head exam is normocephalic atraumatic no scleral icterus Neck is without JVD, thyromegaly, or carotid bruits. Lungs are clear to auscultation, no focal loss of breath sounds Cardiac exam, Rhythm is regular.. No murmurs, rubs or gallops. Abdominal exam reveals absent bowel sounds, distended and dull abdomen, non focal pain, wounds look good, drain in place Extremities are nonedematous and both pedal pulses are normal. Neurologic exam is alert and oriented, no focal loss of strength or sensation Skin is without bruises or rashes Psychologically is without concerns for anxiety or depression Results & Data Results & Data ([facility]) Vital Signs (Past 12 Hours) Vital Signs Temp Pulse Pulse Resp BP Pulse Ox 12/11/19 16:00 109 H 12/11/19 15:00 96.6 F L 93 H 20 167/96 H 92 12/11/19 12:00 97.5 F L 85 20 172/97 H 94 12/11/19 08:20 101 H 12/11/19 07:47 97.5 F L 91 H 20 170/89 H 91 PG Care Time/CCT Total # of Minutes Spent Total Time Spent with Patient: Total time spent is greater than 50% in coordination of care (as documented) at patient's floor/unit and/or counseling patient: Coding Level of Care Code 71818 Subseq Hosp Care Lvl 3 Diagnoses Cecal volvulus K56.2 Hypokalemia E87.6 Depression F32.9 Hypertension I10 Hypothyroidism E03.9 Hypercholesteremia E78.00 DVT prophylaxis Z29.9 Discharge planning issues Z02.9
[2019-12-12] MEDS: SODIUM CHLORIDE 0.9% 1000ML 1,000 ML IV SCH ×2 (04:28→12:06)
[2019-12-12 07:27] LABS: Hematocrit (blood only) 34.4 % (37-47); Hemoglobin 11.2 g/dL (12.0-16.0); Mean Corpuscular Hemoglobin 28.9 pg (25-34); Mean Corpuscular Hgb Conc 32.6 g/dL (32-36); Mean Corpuscular Volume 88.9 fL (80-100); Mean Platelet Volume 9.7 fL (7.4-10.4); Platelet Count 368 K/uL (130-400); RDW Standard Deviation 45.8 fL (36.4-46.3); Red Blood Count 3.87 M/uL (4.2-5.4); White Blood Count 9.52 K/uL (4.8-10.8)
[2019-12-12] MEDS: LOSARTAN POTASSIUM 50 MG TAB PO SCH (07:50)
[2019-12-12] MEDS: ENOXAPARIN INJ 40 MG/0.4 ML SYR SQ SCH (07:50)
[2019-12-12 08:09] LABS: BUN Creatinine Ratio 30.7 (10-20); Creatinine Clr Calc Pharmacy 71.4 ml/min; Est GFR (African American) 75.6; Est GFR (Non-African American) 65.2; Potassium 3.3 mmol/L (3.5-5.1)
[2019-12-12] MEDS: LEVOTHYROXINE SODIUM 35 MCG in SYRINGE 0 ML IV SCH (09:33)
[2019-12-12] MEDS ORDERED: POTASSIUM CHLORIDE 10 MEQ / 100ML WTR IV STA (10:00)
[2019-12-12] MEDS: POTASSIUM CHLORIDE / WTR 10 MEQ/100 ML PLCT IV SCH ×3 (10:13→12:06)
[2019-12-12] MEDS ORDERED: MAGNESIUM SULFATE / D5W 1 GM/100 ML BAG IV ONE (10:30)
--- NOTE | 2019-12-12 11:31 | Surgery Progress Note ---
Date of Service December 12, 2019 Assessment & Plan (1) Cecal volvulus: Postop day #3. She has not had a full return to bowel function yet which is expected considering her diagnosis and surgery. I talked to her nurse about getting her more ice chips. We also need to get her out of bed more. Her nurse will call physical therapy and will try to get her out of bed and wheelchair for longer today. I will recheck her KUB tomorrow. It is encouraging that she is having flatus and we are just waiting for a bowel movement. Her pain appears to be controlled today. Subjective Patient continues to struggle although she does appear better than yesterday. She is now passing some gas. Her main issue is wanting something to drink. She is had no more vomiting although she does continue to have some mild nausea. Physical Exam Physical Exam: Alert. Mildly uncomfortable in general with no specific complaints other than dry mouth Abdomen: Wound looks good. BECCA is serous. Results & Data Vital Signs (Past 12 Hours) Vital Signs Temp Pulse Pulse Resp BP BP Pulse Ox 12/12/19 11:00 37.8 C H 123 H 20 144/72 H 91 12/12/19 08:00 116 H 12/12/19 07:56 37.1 C 125 H 20 185/82 H 176/97 H 93 12/12/19 04:25 36.3 C L 100 H 21 147/78 H 92 12/12/19 02:09 97 H 12/12/19 00:00 37.0 C 106 H 18 156/89 H 92 PG Care Time/CCT Total # of Minutes Spent Total Time Spent with Patient: Total time spent is greater than 50% in coordination of care (as documented) at patient's floor/unit and/or counseling patient: Coding Level of Care Code None Diagnoses Cecal volvulus K56.2
[2019-12-12] MEDS: POTASSIUM CHLORIDE 10 MEQ in D5W AND 1/2NSS 1,000 ML IV SCH (15:57)
[2019-12-12] MEDS ORDERED: METOPROLOL TARTRATE 1 MG/ML VIAL IV PRN (16:13)
--- NOTE | 2019-12-12 16:18 | Hospitalist Progress Note ---
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 meds (4) Hypertension: attempted to give losartan but not with ongoing ileus, will order hydralazine (5) Hypothyroidism: replete with 50% dose (6) Hypercholesteremia: hold lipitor until she's taking PO (7) DVT prophylaxis: lovenox started (8) Discharge planning issues: anticipate several days in hospital now with ileus for post op recovery. as she recovers, PT/OT eval and treat to aid in discharge decision making process Admission and Anticipated Discharge Date Admission Date: December 09, 2019 Subjective Patient continues to have a resting tachycardia, she does appear better than yesterday. She is now passing some gas and tolerating some clear liquids. She is had no more vomiting although she does continue to have some mild nausea abdominal distension and low to no active bowel sounds. Review of Systems Review of Systems: Mild to moderate distress and fatigue no headache, blurry or double vision no speech or swallowing issues no chest pain, pressure or palpitations no shortness of breath, cough or wheezes Mild abdominal pain persistent nausea with resolution of vomiting no dysuria, hematuria or frequency no focal joint pain or swelling no back pain, CVA tenderness or radicular pain no bruising, bleeding or rashes no focal signs of weakness or numbness or altered sensation no complaints or anxiety or depression Physical Exam Physical Exam: The patient appeared in mild distress she is sitting in a chair Vital signs as documented. Head exam is normocephalic atraumatic no scleral icterus Neck is without JVD, thyromegaly, or carotid bruits. Lungs are clear to auscultation, no focal loss of breath sounds Cardiac exam, Rhythm is regular and tachycardic, is sinus tach on monitor. No murmurs, rubs or gallops. Abdominal exam with persistent absent bowel sounds, distended and dull abdomen, non focal pain, wounds look good, drain in place Extremities are nonedematous and both pedal pulses are normal. Neurologic exam is alert and oriented, no focal loss of strength or sensation Skin is without bruises or rashes Psychologically is without concerns for anxiety or depression Results & Data Results & Data ([facility]) Vital Signs (Past 12 Hours) Vital Signs Temp Pulse Pulse Resp BP BP Pulse Ox 12/12/19 16:00 120 H 12/12/19 15:55 97.5 F L 114 H 17 131/77 94 12/12/19 15:11 95 12/12/19 11:00 100.0 F H 123 H 20 144/72 H 91 12/12/19 08:00 116 H 12/12/19 07:56 98.8 F 125 H 20 185/82 H 176/97 H 93 12/12/19 04:25 97.3 F L 100 H 21 147/78 H 92 PG Care Time/CCT Total # of Minutes Spent Total Time Spent with Patient: Total time spent is greater than 50% in coordination of care (as documented) at patient's floor/unit and/or counseling patient: Coding Level of Care Code 20782 Subseq Hosp Care Lvl 3 Diagnoses Cecal volvulus K56.2 Hypokalemia E87.6 Depression F32.9 Hypertension I10 Hypothyroidism E03.9 Hypercholesteremia E78.00 DVT prophylaxis Z29.9 Discharge planning issues Z02.9
[2019-12-12] MEDS: SODIUM CHLORIDE 0.9% 500 ML IV SCH ×2 (16:32→22:28)
[2019-12-13] MEDS: POTASSIUM CHLORIDE 10 MEQ in D5W AND 1/2NSS 1,000 ML IV SCH ×2 (01:14→10:34)
[2019-12-13] MEDS: SODIUM CHLORIDE 0.9% 500 ML IV SCH ×3 (02:30→10:34)
[2019-12-13 06:12] LABS: Hematocrit (blood only) 30.4 % (37-47); Mean Corpuscular Hemoglobin 29.2 pg (25-34); Mean Corpuscular Hgb Conc 32.9 g/dL (32-36); Mean Corpuscular Volume 88.6 fL (80-100); Mean Platelet Volume 9.5 fL (7.4-10.4); Platelet Count 326 K/uL (130-400); RDW Coefficient of Variation 13.8 % (11.5-14.5); RDW Standard Deviation 45.3 fL (36.4-46.3); Red Blood Count 3.43 M/uL (4.2-5.4); White Blood Count 9.28 K/uL (4.8-10.8)
[2019-12-13 06:53] LABS: BUN Creatinine Ratio 27.9 (10-20); Calcium 7.3 mg/dl (8.5-10.1); Creatinine Clr Calc Pharmacy 85.9 ml/min; Est GFR (African American) 94.5; Est GFR (Non-African American) 81.5; Magnesium 1.7 mg/dl (1.8-2.4); Potassium 2.7 mmol/L (3.5-5.1)
[2019-12-13] MEDS ORDERED: POTASSIUM CHLORIDE 10 MEQ / 100ML WTR IV STA (08:24)
--- NOTE | 2019-12-13 08:29 | Hospitalist Progress Note ---
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 difficile testing in the future (2) Hypokalemia: continues augmented magnesium and give parenteral K+ also (3) Depression: will want to resume her abilify, wellbutrin, trazodone, and effexor as soon as is safe to take p.o. meds (4) Hypertension: Resume losartan with PRN augmentation if needed (5) Hypothyroidism: replete with 50% dose if bowel function improves we will return to her oral Synthroid on 12/13 (6) Hypercholesteremia: hold lipitor until she's taking PO (7) DVT prophylaxis: lovenox started (8) Discharge planning issues: anticipate several days in hospital now with ileus for post op recovery. as she recovers, PT/OT eval and treat to aid in discharge decision making process Patient has a COVID test she is not a person of interest this will be to accomplish placement to a rehab facility Admission and Anticipated Discharge Date Admission Date: December 09, 2019 Subjective This patient has improved with now having loose watery bowel movements. Vital signs likewise have improved as well as x-ray evaluation of dilatation of a small large bowel however has some tachypnea has wet sounding lungs she has been on robust IV fluids and has poor nutrition likely is third spacing subsequently we will reduce her IV fluids and give 1 dose of Lasix on 12/13/2019 Review of Systems Review of Systems: Mild distress and fatigue no headache, blurry or double vision no speech or swallowing issues no chest pain, pressure or palpitations He seems tachypneic and short of breath but no overt cough or wheezes Continues with mild abdominal pain no further nausea with vomiting after attempts of oral medications no dysuria, hematuria or frequency no focal joint pain or swelling no back pain, CVA tenderness or radicular pain no bruising, bleeding or rashes no focal signs of weakness or numbness or altered sensation no complaints or anxiety or depression Physical Exam Physical Exam: The patient appeared in mild distress she is sitting in a chair Vital signs as documented. Head exam is normocephalic atraumatic no scleral icterus Neck is without JVD, thyromegaly, or carotid bruits. Lungs are clear to auscultation, no focal loss of breath sounds Cardiac exam, Rhythm is regular and tachycardic, is sinus tach on monitor. No murmurs, rubs or gallops. Abdominal exam with persistent low volume bowel sounds, distended and dull abdomen, non focal pain, wounds continue to look good, drain in place Extremities are nonedematous and both pedal pulses are normal. Neurologic exam is alert and oriented, no focal loss of strength or sensation Skin is without bruises or rashes Psychologically is without concerns for anxiety or depression Results & Data Results & Data ([facility]) Vital Signs (Past 12 Hours) Vital Signs Temp Pulse Pulse Resp BP BP Pulse Ox 12/13/19 08:04 98.1 F 97 H 18 156/67 H 95 12/13/19 07:00 100 H 12/13/19 04:00 99.1 F 97 H 20 154/75 H 93 12/13/19 00:30 107 H 12/12/19 23:00 98.1 F 104 H 20 150/73 H 94 PG Care Time/CCT Total # of Minutes Spent Total Time Spent with Patient: Total time spent is greater than 50% in coordination of care (as documented) at patient's floor/unit and/or counseling patient: Coding Level of Care Code 47783 Subseq Hosp Care Lvl 3 Diagnoses Cecal volvulus K56.2 Hypokalemia E87.6 Depression F32.9 Hypertension I10 Hypothyroidism E03.9 Hypercholesteremia E78.00 DVT prophylaxis Z29.9 Discharge planning issues Z02.9
--- NOTE | 2019-12-13 08:38 | Surgery Progress Note ---
Date of Service December 13, 2019 Assessment & Plan (1) Cecal volvulus: pod 4 improving each day will start clears and slowly advance as tolerated PT/OT--? rehab vs home will prob d/c BECCA tomorrow. Subjective pt seen. +multiple bms. nausea resolved. pain controlled. Physical Exam Physical Exam: alert. nad abd: soft. incision looks good. BECCA serous. Results & Data Vital Signs (Past 12 Hours) Vital Signs Temp Pulse Pulse Resp BP BP Pulse Ox 12/13/19 08:04 36.7 C 97 H 18 156/67 H 95 12/13/19 07:00 100 H 12/13/19 04:00 37.3 C 97 H 20 154/75 H 93 12/13/19 00:30 107 H 12/12/19 23:00 36.7 C 104 H 20 150/73 H 94 PG Care Time/CCT Total # of Minutes Spent Total Time Spent with Patient: Total time spent is greater than 50% in coordination of care (as documented) at patient's floor/unit and/or counseling patient: Coding Level of Care Code None Diagnoses Cecal volvulus K56.2
[2019-12-13] MEDS ORDERED: MAGNESIUM SULFATE / D5W 1 GM/100 ML BAG IV ONE (09:00)
[2019-12-13] MEDS: D5W AND 1/2NSS + 20MEQ KCL 20 MEQ/1,000 ML BAG IV SCH ×2 (09:21→17:22)
--- NOTE | 2019-12-13 09:21 | XRay Report ---
KUB CLINICAL HISTORY: ileus COMPARISON STUDY: CT of the abdomen and pelvis December 09, 2019. KUB December 11, 2019. FINDINGS: Note is made of skin lorenzo, surgical drain and cholecystectomy clips. Small and large bow el dilatation on exam of December 11, 2019 has significantly improved. A few loops of mildly dilated smal l bowel are noted. Surgical staple line within the right abdomen is noted. IMPRESSION: Significant interval improvement in small and large bowel dilatation since KUB of November 142019. Mild residual small bowel dilatation. ACT 112: Negative or not required by law. Electronically signed by: Eros Anderson M.D. 12/13/2019 9:19 AM
[2019-12-13] MEDS: POTASSIUM CHLORIDE / WTR 10 MEQ/100 ML PLCT IV SCH ×5 (09:22→13:28)
--- NOTE | 2019-12-13 09:23 | Electrocardiogram Report ---
Test Reason : Blood Pressure : / mmHG Vent. Rate : 126 BPM Atrial Rate : 126 BPM P-R Int : 160 ms QRS Dur : 078 ms QT Int : 296 ms P-R-T Axes : 020 -11 048 degrees QTc Int : 428 ms Sinus tachycardia with occasional Premature ventricular complexes Diffuse Nonspecific ST and T wave abnormality Abnormal ECG When compared with ECG of 09-DEC-2019 04:32, Premature ventricular complexes are now Present Abnormal right superior axis deviation by 18 bpm Confirmed by Barry Torres ([id number] on 12/13/2019 9:23:32 AM Referred By: REFERRED SELF Confirmed By:Barry Torres
[2019-12-13] MEDS: LEVOTHYROXINE SODIUM 35 MCG in SYRINGE 0 ML IV SCH (10:19)
[2019-12-13] MEDS: LOSARTAN POTASSIUM 50 MG TAB PO SCH (10:19)
[2019-12-13] MEDS: ENOXAPARIN INJ 40 MG/0.4 ML SYR SQ SCH (10:20)
[2019-12-13] MEDS ORDERED: FUROSEMIDE 20 MG in SYRINGE 0 ML IV ONE (17:00)
[2019-12-13] MEDS: POTASSIUM CHLORIDE 20 MEQ TABCR PO SCH (21:56)
[2019-12-14] MEDS: D5W AND 1/2NSS + 20MEQ KCL 20 MEQ/1,000 ML BAG IV SCH (01:30)
[2019-12-14 08:02] LABS: Calcium 7.4 mg/dl (8.5-10.1); Creatinine Clr Calc Pharmacy 89.5 ml/min; Est GFR (Non-African American) 82.9; Magnesium 1.6 mg/dl (1.8-2.4); Potassium 2.6 mmol/L (3.5-5.1)
[2019-12-14] MEDS ORDERED: HYDROCODONE/ACETAMOPHEN 5/325MG TAB PO PRN (08:25)
[2019-12-14] MEDS ORDERED: BuPROPion XL 300 MG TABCR PO SCH (09:00)
[2019-12-14] MEDS ORDERED: ARIPIprazole 1 MG/ML ORAL SOLN 150 ML BTL PO SCH (09:00)
[2019-12-14] MEDS ORDERED: MICONAZOLE NITRATE POWDER 43 GM EXT PRN (09:07)
[2019-12-14] MEDS: ENOXAPARIN INJ 40 MG/0.4 ML SYR SQ SCH (09:08)
[2019-12-14] MEDS: POTASSIUM CHLORIDE 20 MEQ TABCR PO SCH ×5 (09:08→21:01)
[2019-12-14] MEDS ORDERED: MAGNESIUM SULFATE / D5W 1 GM/100 ML BAG IV ONE (09:19)
[2019-12-14] MEDS ORDERED: POTASSIUM CHLORIDE 10 MEQ / 100ML WTR IV STA (09:19)
[2019-12-14] MEDS: VENLAFAXINE HCL XR 75 MG CAPXR PO SCH (09:33)
[2019-12-14] MEDS: ATORVASTATIN 10 MG TAB PO SCH (09:33)
[2019-12-14] MEDS: POTASSIUM CHLORIDE / WTR 10 MEQ/100 ML PLCT IV SCH ×4 (09:58→23:35)
[2019-12-14] MEDS: LOSARTAN POTASSIUM 50 MG TAB PO SCH (09:59)
--- NOTE | 2019-12-14 11:46 | Surgery Progress Note ---
Date of Service December 14, 2019 Assessment & Plan (1) Cecal volvulus: pod 5 continues to improve will advance diet will d/c BECCA drain d/c planning [facility] covering for weekend. Subjective pt seen. no new complaints. wants more to eat. amy liquids. Physical Exam Physical Exam: alert. nad wound looks good. BECCA serous. Results & Data Vital Signs (Past 12 Hours) Vital Signs Temp Pulse Pulse Resp BP BP Pulse Ox 12/14/19 11:38 37.1 C 98 H 20 161/76 H 96 12/14/19 07:48 36.6 C 78 18 159/55 H 95 12/14/19 07:00 87 12/14/19 04:56 97 H 12/14/19 03:27 36.9 C 83 20 158/67 H 96 12/14/19 00:00 36.7 C 86 18 162/72 H 96 PG Care Time/CCT Total # of Minutes Spent Total Time Spent with Patient: Total time spent is greater than 50% in coordination of care (as documented) at patient's floor/unit and/or counseling patient: Coding Level of Care Code None Diagnoses Cecal volvulus K56.2
[2019-12-14 14:30] LABS: Cdiff Antigen Positive; Cdiff Toxin A+B Negative Cdiff Toxin (Negative)
--- NOTE | 2019-12-14 18:55 | Hospitalist Progress Note ---
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 difficile gene positive but toxin negative will not initiate treatment at this time (2) Hypokalemia: continues augmented magnesium and give parenteral K+ once again on 12/14/2019 (3) Depression: will want to resume her, wellbutrin, trazodone, and effexor reducing doses of Wellbutrin and trazodone as not to start at maximum doses or near maximum doses (4) Hypertension: Resume losartan with PRN augmentation if needed (5) Hypothyroidism: replete with 50% dose if bowel function improves we will return to her oral Synthroid on 12/13 (6) Hypercholesteremia: hold lipitor until she's taking PO (7) DVT prophylaxis: lovenox started (8) Discharge planning issues: anticipate will eventually will need rehab placement Patient has a COVID test she is not a person of interest this will be to accomplish placement to a rehab facility Admission and Anticipated Discharge Date Admission Date: December 09, 2019 Subjective pt seen. Inform me she is no longer on Abilify. Will reduce some of her medications as not to start with full dose as she has been off of them for almost a week slowly escalating up her doses of trazodone and Wellbutrin persistently requiring low potassium replacement patient is also positive for the C. difficile gene but negative for the C. difficile toxin for will not initiate antibiotic treatment at this time Review of Systems Review of Systems: Mild distress and fatigue no headache, blurry or double vision no speech or swallowing issues no chest pain, pressure or palpitations He seems tachypneic and short of breath but no overt cough or wheezes Continues with mild abdominal pain no further nausea or vomiting she is having some diarrhea no dysuria, hematuria or frequency no focal joint pain or swelling no back pain, CVA tenderness or radicular pain no bruising, bleeding or rashes no focal signs of weakness or numbness or altered sensation no complaints or anxiety or depression Physical Exam Physical Exam: The patient appeared in mild distress she is sitting in a chair Vital signs as documented. Head exam is normocephalic atraumatic no scleral icterus Neck is without JVD, thyromegaly, or carotid bruits. Lungs are clear to auscultation, no focal loss of breath sounds Cardiac exam, Rhythm is regular and tachycardic, is sinus tach on monitor. No murmurs, rubs or gallops. Abdominal exam with bowel sounds are present abdomen less distended still dull to percussion Extremities are nonedematous and both pedal pulses are normal. Neurologic exam is alert and oriented, no focal loss of strength or sensation Skin is without bruises or rashes Psychologically is without concerns for anxiety or depression Results & Data Results & Data ([facility]) Vital Signs (Past 12 Hours) Vital Signs Temp Pulse Pulse Resp BP Pulse Ox 12/14/19 16:29 94 H 151/68 H 12/14/19 11:38 98.8 F 98 H 20 161/76 H 96 12/14/19 07:48 97.9 F 78 18 159/55 H 95 12/14/19 07:00 87 PG Care Time/CCT Total # of Minutes Spent Total Time Spent with Patient: Total time spent is greater than 50% in coordination of care (as documented) at patient's floor/unit and/or counseling patient: Coding Level of Care Code 21683 Subseq Hosp Care Lvl 2 Diagnoses Cecal volvulus K56.2 Hypokalemia E87.6 Depression F32.9 Hypertension I10 Hypothyroidism E03.9 Hypercholesteremia E78.00 DVT prophylaxis Z29.9 Discharge planning issues Z02.9
[2019-12-14] MEDS: TRAZODONE HCL 50 MG TAB PO SCH (20:54)
[2019-12-14] MEDS ORDERED: TRAZODONE HCL 50 MG TAB PO SCH (21:00)
[2019-12-15] MEDS: POTASSIUM CHLORIDE / WTR 10 MEQ/100 ML PLCT IV SCH ×3 (00:41→03:29)
[2019-12-15] MEDS: LEVOTHYROXINE SODIUM 75 MCG TABLET PO SCH (05:15)
[2019-12-15 06:34] LABS: BUN Creatinine Ratio 10.2 (10-20); Calcium 7.4 mg/dl (8.5-10.1); Creatinine Clr Calc Pharmacy 93.3 ml/min; Est GFR (Non-African American) 87.2; Magnesium 1.7 mg/dl (1.8-2.4); Phosphorus 1.7 mg/dl (2.5-4.9); Potassium 3.1 mmol/L (3.5-5.1)
[2019-12-15] MEDS: POTASSIUM CHLORIDE 20 MEQ TABCR PO SCH ×2 (07:58→21:15)
[2019-12-15] MEDS: LOSARTAN POTASSIUM 50 MG TAB PO SCH (09:37)
[2019-12-15] MEDS: BuPROPion XL 150 MG TABCR PO SCH (09:37)
[2019-12-15] MEDS: ENOXAPARIN INJ 40 MG/0.4 ML SYR SQ SCH (09:38)
[2019-12-15] MEDS: VENLAFAXINE HCL XR 75 MG CAPXR PO SCH (09:38)
[2019-12-15] MEDS: ATORVASTATIN 10 MG TAB PO SCH (09:39)
--- NOTE | 2019-12-15 11:16 | Surgery Progress Note ---
Date of Service December 15, 2019 Assessment & Plan (1) Cecal volvulus: Postoperative day #6 status post exploratory laparotomy and right hemicolectomy for cecal volvulus GI function has returned Patient is not eating well but I think it is more related to her picky eating. She has no nausea. There was some drainage from the incision. I remove 3 lorenzo and probed the wound. The fascia feels to be intact. I placed a culture. Will leave it open place dressings. Subjective Postoperative day #6 status post exploratory laparotomy with right hemicolectomy for cecal volvulus Patient had very mild what she described as generalized discomfort. There was no sharp abdominal pain. There was some drainag e noted on her dressing. She has been afebrile. She is moving her bowels. Her appetite has not been good but she is a self-proclaimed picky eater. She denies nausea. Physical Exam Gastrointestinal (Abdomen): Inspection/Auscultation: + abdominal surgical incision (There was some pink color to the skin surrounding the lower portion of the ); abdomen not distended Percussion/Palpation: + abdomen tender (Mild in the lower portion of the incision) and abdomen soft Results & Data Vital Signs (Past 12 Hours) Vital Signs Temp Pulse Pulse Resp BP Pulse Ox 12/15/19 07:00 91 H 12/15/19 03:23 37.2 C 89 20 154/79 H 95 12/14/19 23:37 36.6 C 93 H 20 164/82 H 96 Laboratory Results 12/15/19 12/14/19 Range/Units 05:25 11:20 Sodium 139 (136-145) mmol/L Potassium 3.1 L D (3.5-5.1) mmol/L Chloride 112 H (98-107) mmol/L Carbon Dioxide 21 (21-32) mmol/L Anion Gap 6.0 (3-11) BUN 7 (7-18) mg/dl Creatinine 0.70 (0.6-1.2) mg/dl Est Cr Clr Drug Dosing 93.3 ml/min Est GFR ( Amer) 101.0 Est GFR (Non-Af Amer) 87.2 BUN/Creatinine Ratio 10.2 (10-20) Glucose 88 (70-99) mg/dl Calcium 7.4 L (8.5-10.1) mg/dl Phosphorus 1.7 L (2.5-4.9) mg/dl Magnesium 1.7 L (1.8-2.4) mg/dl Stl C. diff Tox B Gene Positive Cdiff Gene H (Neg) Stl C.difficile Tox A&B Negative Cdiff Toxin (Negative)
[2019-12-15] MEDS ORDERED: POTASSIUM PHOS 3 MMOL/1 ML INFUSION IV STA (17:50)
--- NOTE | 2019-12-15 17:54 | Hospitalist Progress Note ---
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 difficile gene positive but toxin negative will not initiate treatment at this time (2) Hypokalemia: continues augmented magnesium and give parenteral potassium and phosphorus on 12/15/2019 (3) Depression: will want to resume her, wellbutrin, trazodone, and effexor reducing doses of Wellbutrin and trazodone as not to start at maximum doses or near maximum doses We removed Brionna from medication list We will escalate doses of her Wellbutrin and trazodone as she tolerates (4) Hypertension: Resume losartan with PRN augmentation if needed (5) Hypothyroidism: oral Synthroid on 12/13 (6) Hypercholesteremia: hold lipitor until discharge (7) DVT prophylaxis: lovenox started (8) Discharge planning issues: anticipate will eventually will need rehab placement Patient has a COVID test she is not a person of interest this will be to accomplish placement to a rehab facility Admission and Anticipated Discharge Date Admission Date: December 09, 2019 Subjective Patient continues to have poor p.o. intake mostly by some of her own volition. Patient did have a mild purulent pocket behind her abdominal wound which was opened by surgery. Patient remains hypokalemic but refuses oral potassium because the pills are too large she does agree to IV potassium. She has persistent low potassium and now some low phosphorus which may be somewhat a function of her prolonged poor nutritional state Review of Systems Review of Systems: Mild distress and fatigue no headache, blurry or double vision no speech or swallowing issues no chest pain, pressure or palpitations He seems tachypneic and short of breath but no overt cough or wheezes Resolving abdominal pain mild diarrhea no dysuria, hematuria or frequency no focal joint pain or swelling no back pain, CVA tenderness or radicular pain Abdominal wound had a few lorenzo taken out with some purulent material released by surgical team no focal signs of weakness or numbness or altered sensation no complaints or anxiety or depression Physical Exam Physical Exam: The patient appeared in mild distress she is sitting in a chair Vital signs as documented. Head exam is normocephalic atraumatic no scleral icterus Neck is without JVD, thyromegaly, or carotid bruits. Lungs are clear to auscultation, no focal loss of breath sounds Cardiac exam, Rhythm is regular and tachycardic, is sinus tach on monitor. No murmurs, rubs or gallops. Abdominal exam with bowel sounds are present abdomen less distended still dull to percussion Extremities are nonedematous and both pedal pulses are normal. Neurologic exam is alert and oriented, no focal loss of strength or sensation Skin is with the abdominal wound looking well with exception of a short segment of lorenzo removed proximately 1 inch long Psychologically is without concerns for anxiety or depression Results & Data Results & Data ([facility]) Vital Signs (Past 12 Hours) Vital Signs Temp Pulse Pulse Resp BP BP Pulse Ox 12/15/19 16:00 97.7 F 89 16 159/80 H 97 12/15/19 14:20 96 H 12/15/19 11:00 98.1 F 88 20 149/82 H 98 12/15/19 07:00 91 H PG Care Time/CCT Total # of Minutes Spent Total Time Spent with Patient: Total time spent is greater than 50% in coordination of care (as documented) at patient's floor/unit and/or counseling patient: Coding Level of Care Code 06382 Subseq Hosp Care Lvl 2 Diagnoses Cecal volvulus K56.2 Hypokalemia E87.6 Depression F32.9 Hypertension I10 Hypothyroidism E03.9 Hypercholesteremia E78.00 DVT prophylaxis Z29.9 Discharge planning issues Z02.9
[2019-12-15] MEDS ORDERED: POTASSIUM PHOSPHATE 21 MMOL in SODIUM CHLORIDE 0.9% 500 ML IV ONE (18:30)
[2019-12-15] MEDS: TRAZODONE HCL 50 MG TAB PO SCH (21:15)
[2019-12-15] MEDS: HYDROCODONE/ACETAMOPHEN 5/325MG TAB PO PRN (21:29)
[2019-12-16] MEDS: LEVOTHYROXINE SODIUM 75 MCG TABLET PO SCH (06:31)
--- NOTE | 2019-12-16 07:55 | Hospitalist Progress Note ---
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 difficile gene positive but toxin negative will not initiate treatment at this time (2) Hypokalemia: continues augmented magnesium and give parenteral potassium 12/16/19 (3) Depression: will want to resume her, wellbutrin, trazodone, and effexor reducing doses of Wellbutrin and trazodone as not to start at maximum doses or near maximum doses We removed Brionna from medication list We will escalate doses of her Wellbutrin and trazodone as she tolerates (4) Hypertension: Resume losartan with PRN augmentation if needed (5) Hypothyroidism: oral Synthroid on 12/13 (6) Hypercholesteremia: hold lipitor until discharge (7) DVT prophylaxis: lovenox started (8) Discharge planning issues: anticipate will eventually will need rehab placement Patient has a COVID test she is not a person of interest this will be to accomplish placement to a rehab facility Admission and Anticipated Discharge Date Admission Date: December 09, 2019 Subjective Patient continues to have poor p.o. intake mostly by some of her own volition. Patient did have a mild purulent pocket behind her abdominal wound which was opened by surgery. Patient remains hypokalemic but continues to refuse oral potassium because the pills are too large she does agree to IV potassium. She has persistent low potassium and low magnesium Review of Systems Review of Systems: Mild distress and fatigue no headache, blurry or double vision no speech or swallowing issues no chest pain, pressure or palpitations He seems tachypneic and short of breath but no overt cough or wheezes Resolving abdominal pain mild diarrhea no dysuria, hematuria or frequency no focal joint pain or swelling no back pain, CVA tenderness or radicular pain Abdominal wound had a few lorenzo taken out with some purulent material released by surgical team no focal signs of weakness or numbness or altered sensation no complaints or anxiety or depression Physical Exam Physical Exam: The patient appeared in mild distress she is sitting in a chair Vital signs as documented. Head exam is normocephalic atraumatic no scleral icterus Neck is without JVD, thyromegaly, or carotid bruits. Lungs are clear to auscultation, no focal loss of breath sounds Cardiac exam, Rhythm is regular and tachycardic, is sinus tach on monitor. No murmurs, rubs or gallops. Abdominal exam with bowel sounds are present abdomen less distended still dull to percussion Extremities are nonedematous and both pedal pulses are normal. Neurologic exam is alert and oriented, no focal loss of strength or sensation Skin is with the abdominal wound looking well with exception of a short segment of lorenzo removed proximately 1 inch long Psychologically is without concerns for anxiety or depression Results & Data Results & Data ([facility]) Vital Signs (Past 12 Hours) Vital Signs Temp Pulse Pulse Resp BP Pulse Ox 12/16/19 07:45 98.1 F 90 18 148/77 H 95 12/16/19 07:33 89 12/16/19 04:00 98.1 F 85 18 149/77 H 94 12/16/19 00:00 89 12/15/19 23:20 98.2 F 92 H 20 138/73 95 PG Care Time/CCT Total # of Minutes Spent Total Time Spent with Patient: Total time spent is greater than 50% in coordination of care (as documented) at patient's floor/unit and/or counseling patient: Coding Level of Care Code 66463 Subseq Hosp Care Lvl 2 Diagnoses Cecal volvulus K56.2 Hypokalemia E87.6 Depression F32.9 Hypertension I10 Hypothyroidism E03.9 Hypercholesteremia E78.00 DVT prophylaxis Z29.9 Discharge planning issues Z02.9
[2019-12-16 08:42] LABS: BUN Creatinine Ratio 6.6 (10-20); Calcium 7.8 mg/dl (8.5-10.1); Creatinine Clr Calc Pharmacy 87.8 ml/min; Est GFR (Non-African American) 82.9; Magnesium 1.7 mg/dl (1.8-2.4)
[2019-12-16 08:50] LABS: Phosphorus 3.6 mg/dl (2.5-4.9)
[2019-12-16] MEDS: LOSARTAN POTASSIUM 50 MG TAB PO SCH (09:30)
[2019-12-16] MEDS: VENLAFAXINE HCL XR 75 MG CAPXR PO SCH (09:31)
[2019-12-16] MEDS: ATORVASTATIN 10 MG TAB PO SCH (09:31)
[2019-12-16] MEDS: ENOXAPARIN INJ 40 MG/0.4 ML SYR SQ SCH (09:32)
[2019-12-16] MEDS: BuPROPion XL 150 MG TABCR PO SCH (09:33)
[2019-12-16] MEDS ORDERED: PIPERACILL/TAZOBAC CONSULT ACTIVE PRN (12:14)
--- NOTE | 2019-12-16 12:14 | Surgery Progress Note ---
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 Appetite better Wound surrounding skin appears better Irrigate wound daily Culture organism ID and sensitivities pending, start broad spectrum antibiotics Increase ambulation Subjective POD # 7 S/P exploratory laparotomy and right hemicolectomy Feels much better today Ate better yesterday No N?V Bowels moving and passing flatus Physical Exam Gastrointestinal (Abdomen): Inspection/Auscultation: + abdominal surgical incision (Less pink today, still with turbid drainage); abdomen not distended Percussion/Palpation: + abdomen tender (Minimal) and abdomen soft Results & Data Vital Signs (Past 12 Hours) Vital Signs Temp Pulse Pulse Resp BP Pulse Ox 12/16/19 11:18 36.9 C 75 20 149/78 H 97 12/16/19 07:45 36.7 C 90 18 148/77 H 95 12/16/19 07:33 89 12/16/19 04:00 36.7 C 85 18 149/77 H 94 Laboratory Results 12/16/19 12/13/19 Range/Units 07:44 17:11 Sodium 140 (136-145) mmol/L Potassium 3.0 L (3.5-5.1) mmol/L Chloride 110 H (98-107) mmol/L Carbon Dioxide 21 (21-32) mmol/L Anion Gap 8.0 (3-11) BUN 5 L (7-18) mg/dl Creatinine 0.73 (0.6-1.2) mg/dl Est Cr Clr Drug Dosing 87.8 ml/min Est GFR ( Amer) 96.0 Est GFR (Non-Af Amer) 82.9 BUN/Creatinine Ratio 6.6 L (10-20) Glucose 76 (70-99) mg/dl Calcium 7.8 L (8.5-10.1) mg/dl Phosphorus 3.6 D (2.5-4.9) mg/dl Magnesium 1.7 L (1.8-2.4) mg/dl SARS-CoV-2 RNA (RT-PCR) Not Detected (NotDetected) Diagnostic Findings Culture grew 2 gram neg Bacilli, ID and sensitivities pending
[2019-12-16] MEDS ORDERED: PIPERACILLIN/TAZOBACTAM 4.5 GM in DEXTROSE 5% 100 ML IV ONE (12:30)
[2019-12-16] MEDS ORDERED: MAGNESIUM SULFATE / D5W 1 GM/100 ML BAG IV ONE (17:25)
[2019-12-16] MEDS ORDERED: POTASSIUM CHLORIDE 10 MEQ / 100ML WTR IV STA (17:25)
[2019-12-16] MEDS: PIPERACILLIN/TAZOBACTAM 3.375 GM in DEXTROSE 5% 100 ML IV SCH (18:17)
[2019-12-16] MEDS: POTASSIUM CHLORIDE / WTR 10 MEQ/100 ML PLCT IV SCH ×3 (18:23→22:22)
[2019-12-16] MEDS: HYDROCODONE/ACETAMOPHEN 5/325MG TAB PO PRN (18:45)
[2019-12-16] MEDS: TRAZODONE HCL 50 MG TAB PO SCH (20:24)
[2019-12-17] MEDS: PIPERACILLIN/TAZOBACTAM 3.375 GM in DEXTROSE 5% 100 ML IV SCH ×3 (02:02→18:05)
[2019-12-17] MEDS: LEVOTHYROXINE SODIUM 75 MCG TABLET PO SCH (05:35)
[2019-12-17] MEDS: VENLAFAXINE HCL XR 75 MG CAPXR PO SCH (08:59)
[2019-12-17] MEDS: BuPROPion XL 150 MG TABCR PO SCH (08:59)
[2019-12-17] MEDS: ENOXAPARIN INJ 40 MG/0.4 ML SYR SQ SCH (09:00)
[2019-12-17] MEDS: LOSARTAN POTASSIUM 50 MG TAB PO SCH (09:00)
[2019-12-17] MEDS: ATORVASTATIN 10 MG TAB PO SCH (09:00)
[2019-12-17 09:10] LABS: BUN Creatinine Ratio 4.5 (10-20); Calcium 7.8 mg/dl (8.5-10.1); Creatinine Clr Calc Pharmacy 75.3 ml/min; Est GFR (Non-African American) 69.9; Potassium 3.1 mmol/L (3.5-5.1)
[2019-12-17 09:11] LABS: Magnesium 1.9 mg/dl (1.8-2.4)
--- NOTE | 2019-12-17 09:18 | Surgery Progress Note ---
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 d/c planning, hopefully tomorrow. SNF denied, will likely need home nursing for wound care/PT. Subjective Patient states she feels pretty good today. She is not eating much due to being a picky-eater, but did enjoy a fried egg at breakfast this AM. Denies abdominal pain, n/v. Having + flatus and BM's. Physical Exam Physical Exam: awake/alert Gastrointestinal (Abdomen): Inspection/Auscultation: + abdominal surgical incision (midline incision, small part of lower portion opened, draining cloudy fluid); abdomen not distended Percussion/Palpation: abdomen soft; abdomen nontender Results & Data Vital Signs (Past 12 Hours) Vital Signs Temp Pulse Pulse Resp BP Pulse Ox 12/17/19 07:16 36.6 C 87 18 148/76 H 95 12/17/19 04:00 37.0 C 84 18 146/77 H 95 12/17/19 00:00 92 H 12/16/19 22:56 36.9 C 88 18 133/81 92 12/16/19 22:10 88 PG Care Time/CCT Total # of Minutes Spent Total Time Spent with Patient: Total time spent is greater than 50% in coordination of care (as documented) at patient's floor/unit and/or counseling patient: Coding Level of Care Code None Diagnoses Cecal volvulus K56.2
[2019-12-17] MEDS: POTASSIUM CHLORIDE / WTR 10 MEQ/100 ML PLCT IV SCH ×4 (10:09→13:01)
[2019-12-17] MEDS: ACETAMINOPHEN 500 MG TAB PO PRN (15:05)
[2019-12-17] MEDS: TRAZODONE HCL 50 MG TAB PO SCH (20:51)
[2019-12-18] MEDS: PIPERACILLIN/TAZOBACTAM 3.375 GM in DEXTROSE 5% 100 ML IV SCH (02:01)
[2019-12-18 04:09] VITALS: O2SAT 95
[2019-12-18] MEDS: LEVOTHYROXINE SODIUM 75 MCG TABLET PO SCH (06:16)
[2019-12-18 08:36] LABS: BUN Creatinine Ratio 4.2 (10-20); Calcium 7.7 mg/dl (8.5-10.1); Creatinine Clr Calc Pharmacy 77.6 ml/min; Est GFR (African American) 84.7; Est GFR (Non-African American) 73.1; Potassium 3.1 mmol/L (3.5-5.1)
[2019-12-18] MEDS: LOSARTAN POTASSIUM 50 MG TAB PO SCH (08:36)
[2019-12-18] MEDS: ENOXAPARIN INJ 40 MG/0.4 ML SYR SQ SCH (08:36)
[2019-12-18] MEDS: BuPROPion XL 150 MG TABCR PO SCH (08:36)
[2019-12-18] MEDS: ATORVASTATIN 10 MG TAB PO SCH (08:36)
[2019-12-18] MEDS: VENLAFAXINE HCL XR 75 MG CAPXR PO SCH (08:36)
--- NOTE | 2019-12-18 08:42 | Surgery Progress Note ---
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 Inferior portion of wound irrigated with NS daily. PT cleared patient for home today, will discuss with case management setting up with home services for PT and home nursing for wound care Patient to follow up with Dr. Boyle in clinic next week as above. ok for d/c. instructions given. Subjective Patient states she is feeling well. Tolerating a diet, had a burger yesterday for supper. Has some incisional soreness, but otherwise denies much abdominal pain. No n/v. Passing flatus/BM. Physical Exam Physical Exam: awake/alert Respiratory: normal respiratory effort Gastrointestinal (Abdomen): Inspection/Auscultation: + abdominal surgical incision; abdomen not distended Percussion/Palpation: + abdomen tender (mild ttp superior incision) and abdomen soft Portion of superior incision with some surrounding erythema, inferior portion some lorenzo have been removed and wound draining cloudy fluid. Results & Data Vital Signs (Past 12 Hours) Vital Signs Temp Pulse Pulse Resp BP BP Pulse Ox 12/18/19 07:08 36.4 C L 83 20 144/68 H 95 12/18/19 04:08 36.6 C 93 H 18 177/76 H 95 12/17/19 23:23 36.6 C 74 20 155/70 H 97 12/17/19 23:00 91 H PG Care Time/CCT Total # of Minutes Spent Total Time Spent with Patient: Total time spent is greater than 50% in coordination of care (as documented) at patient's floor/unit and/or counseling patient: Coding Level of Care Code None Diagnoses Cecal volvulus K56.2
[2019-12-18] MEDS ORDERED: SULFAMETHOXAZOLE/TRIMETHOPRIM DS 800/160MG TAB PO SCH (09:00)
[2019-12-18 11:39] VITALS: PULSE 91; TEMP 98.1
[2019-12-18] MEDS: ACETAMINOPHEN 500 MG TAB PO PRN (11:59)
[2019-12-18 14:26] VITALS: BP 144/68
--- NOTE | 2019-12-26 10:07 | Discharge Summary ---
Date of Service December 26, 2019 Admission HPI Per Admitting Provider 69 year old female presented to the ED due to "not feeling well"for about 3 days. She notes her main complaint has been SOB with activity. She denies CP, palpitations, or syncope. Earlier today she had 3 episodes of N/V. She noted a BM that was somewhat liquid but essentially normal earlier today. Due to her symptoms she presented to the ED. She denies FH of colon CA and she had had a colonoscopy on the past and to the best of her knowledge there were no reported problems. In the Ed labs revealed a WBC of, an elevated D-dimer, sodium 134, potassium of 3.1. Her Bun and Cr were [address] scan of the chest did not reveal any pneumonia, pleural effusions, or PE. Ct scan of the abdomen showed concern for cecal mas or volvulus. At the time of my exam she as in no distress. An NGT was attempted multiple times by Rm as ell as myself--this caused emesis and each time the patiemnt pulled the tube out and refused to have it inserted. Upon cessation of attempted to put NGT she was more comfortable. Principal Diagnosis cecal volvulous Discharge Data Allergies Allergy/AdvReac Type Severity Reaction Status Date / Time ciprofloxacin Allergy Intermediate RASH Verified 12/25/19 10:28 hydromorphone Allergy Mild GOOFY AND Verified 12/25/19 10:28 TALKING CRAZINESS Consultations 12/09/19 03:52 Consult Hospitalist Stat Procedures Performed Operation Date: 12/09/19 07:30 Actual Procedures p Exploratory Laparotomy, right hemicolectomy, enterolysis(Not Applicable) - Zacarias Boyle, Ordered Studies 12/08/19 23:20 CT abd pelvis IV con only Urgent 12/08/19 23:52 CT angio chest PE protocol Urgent Hospital Course (1) Cecal volvulus: 69-year-old female who was admitted urgently with acute cecal volvulus. She underwent urgent open right hemicolectomy as well as enteroclysis on 12/09/2019. She was subsequently admitted to the hospital for postoperative care. She had a relatively typical postoperative course. She was administered pain and nausea control for the first several days postop. Physical therapy was consulted and ambulation initiated. Eventually she regained bowel function. We were able to slowly advance her diet. The medical hospitalist were consulted throughout her stay for her chronic conditions such as hypertension depression anxiety. We did put in a request for placement at [facility] for temporary postoperative care physical therapy etc. This was denied by her insurance company. Eventually by December 18, 2019 she was deemed stable for discharge. She was discharged to home under the care of her family. Verbal and written instructions were provided her. She had home nursing to assist with dressing changes as well as home physical therapy. She was to follow-up with her primary care physician as well as myself within a 7 to 14-day period. Total Time Total Time Spent Total Time Spent (In Minutes): 15 Total Time Includes: Examination of the Patient, Discharge Planning, Medication Reconciliation and Other Discharge Plan Discharge Items Patient Disposition: Home - Home Health Services Reason For Visit: CECAL VOLVULUS Discharge Diagnosis: cecal volvulus exploratory laparotomy & right hemicolectomy Activity: Per Instructions section Lifting: No more than 10 pounds Bathing Comment: may shower; no soaking in tubs/pools Exercise/Sports: Wait until after follow-up appointment Driving/Machine Use: do not resume driving while taking narcotics for pain Non-emergency contact: Surgeon Call non-emergency contact if: you have any medication questions, your symptoms worsen, your pain is not controlled, your pain is worsening, your pain is unusual for you, your pain is concerning for you, you have a fever, your temperature is above 101.5, your wound has increased redness, your wound has increased drainage and your wound pain has increased Follow-up/Referrals: Yesi Coronado MD [Primary Care Provider] - Zacarias Boyle DO [Surgeon] - (You have been scheduled for a follow up appointment with Dr. Boyle in clinic on 12/25/19 at 10:00AM.) Diet: Low Fiber Addtl Attending Provider Instructions: You have been scheduled for a follow up appointment with Dr. Boyle on 12/25/19 at 10:00am. You should follow up with your Primary Care Physician as well within 1-2 weeks from discharge for post hospital follow up. -Please pack the two areas of your abdominal wound with nu-gauze, then cover with dry 4x4 gauze, ABD pad, and medipore tape. Please perform this daily. -Please complete the full course of antibiotic prescribed to you. -Please be aware that both plain Tylenol and the narcotic [place] contain Acetaminophen. Please do not exceed more than 3grams of Acetaminophen within 24 hours. Pending Studies at Discharge: Yes Stand-Alone Forms: My [facility], Smoking Cessation Medications and DC Order Prescriptions: Continued aspirin 81 mg tablet,delayed release (DR/EC) 81 mg PO DAILY RF: 0 cholecalciferol (vitamin D3) 2,000 unit capsule 2,000 units PO DAILY RF: 0 vitamin B complex [B Complex-Vitamin B12] tablet 1 tab PO DAILY RF: 0 magnesium oxide 400 mg capsule 400 mg PO DAILY RF: 0 venlafaxine 75 mg capsule,extended release 24hr 75 mg PO DAILY RF: 0 levothyroxine 75 mcg tablet 75 mcg PO DAILY Qty: 30 RF: 5 omeprazole 40 mg capsule,delayed release(DR/EC) 40 mg PO DAILY Qty: 90 RF: 1 atorvastatin 10 mg tablet 10 mg PO DAILY Qty: 90 RF: 1 bupropion HCl 300 mg tablet extended release 24 hr 300 mg PO QAM RF: 0 zolpidem 5 mg tablet 5 mg PO HS PRN (Reason: Sleep) RF: 0 Changed trazodone 100 mg tablet 50 mg PO HS Qty: 0 RF: 0 losartan [Cozaar] 100 mg tablet 50 mg PO DAILY Qty: 90 RF: 1 Discontinued docusate sodium [Colace] 100 mg capsule 100 mg PO BID RF: 0 aripiprazole [Abilify] 2 mg tablet 1 mg PO DAILY RF: 0 triamterene-hydrochlorothiazid 37.5-25 mg capsule 1 cap PO DAILY Qty: 90 RF: 1 No Action potassium chloride 10 mEq capsule, extended release 20 meq PO BID Qty: 360 RF: 1 Discharge Orders: Discharge Order (Routine); Ordered 12/18/19 Ordered By: Elizabeth Montanez Admission Data Admit Date/Time: 12/09/19 03:44 Attending Provider: Zacarias Boyle Admit Provider: Isaak Humphrey Primary Care Provider: Yesi Coronado Other Providers: Natalie Gutiérrez ; Romeo Sharma ; Ryan Nolen ; Hazel Armijo ; Ezra Dalton ; Wagner Gilliland ; Rodríguez Munguia ; Fabienne Morris ; Blaire Cartwright ; Tia Rothman ; Jim Magana ; Kaela Sheridan ; Jane Leblanc ; Wilfredo Vivar ; Pato Das ; Mackenzie Butts ; Russell Vernon ; Noah Mcdaniels ; Romeo Rudd ; Sukumar Araujo ; Will Mohan ; Marbella Gonzales ; Cathy Gonzales ; Yonny Ba ; Sukhdev Tafoya ; Joseph Butler ; Julio César Cordon ; Jill Mondragon ; Jaspal Singer ; [facility] Other Interventions: Discharge Summary Assessment (RN) Last Done: 12/18/19 14:21 Coding Level of Care Code D/C Day Management <30 mins Diagnoses Cecal volvulus K56.2
--- NOTE | 2019-12-29 14:03 | Coding Query ---
Your help is needed for correct coding of this account; please clarify if the patients Post-operative Ileus was: ( x) expected out of the surgery ( ) unexpected complication from the surgery ( )other please specify Thank you ANA Esposito, VIRIDIANA JOSEPH
== END 2019-12-18 15:30 | disposition home health service (06) | DRG 330 ==
LOC: ED 22:55 → 2N 12-09 03:32 → 2W 12-15 15:43